=== PATIENT | male | born 1940 | race Caucasian/White ===

== ENCOUNTER 2016-11-14 12:53 | Outpatient (CLI) | payer MEDICARE ==
--- OUTSIDE RECORDS SUMMARY | 2016-11-14 12:56 | XMS | Clinical Summary ---
:1940 Author Organization [facility] Address [address] [place] [address] Phone Care Team Providers Name Role Phone , Primary Care Provider Unavailable Allergies Not on File Current Medications Not on file Active Problems Not on file Social History Tobacco Use Types Packs/Day Years Used Date Never Assessed Sex Assigned at Date Recorded Not on file Last Filed Vital Signs Not on file Plan of Treatment Not on file Results Not on filefrom Last 3 Months
--- NOTE | 2016-11-14 17:57 | PET ---
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 Exam requested for initial staging. TECHNIQUE: PET scanning with CT attenuation correction was performed from the base of the brain through the pro ximal thighs following the intravenous administration of 12.8 mCi [id number] in the right antecubital f lorraine. Imaging was performed after an uptake interval of 59 minutes. COMPARISON: None. CORRELATION: CT chest without contrast dated 09/18/16 from [facility]. FINDINGS: There is hypermetabolic activity in the noncalcified 2.0 cm right lower lobe peripheral lung nodule noted on the CT scan with a SUV of 13.4. No other hypermetabolic pulmonary nodules are seen. No manish hypermetabolism is seen in the neck, mediastinum, hilar regions, axilla, abdomen, or pelvis . No hypermetabolic liver, adrenal, or skeletal lesions are seen. Focal areas of photopenia in the liver are consistent with cysts on the CT scan. There is physiologic activity in the GI and tracts, and the visualized portions of the brain. The CT scan used for attenuation correction demonstrates no evidence of pleural effusions or ascites . IMPRESSION: Right lower lobe lung malignancy without evidence of metastatic disease. POS: [facility]
== END 2016-11-14 12:54 | disposition home or self-care (01) ==
LOC: PET 12:53
PROVIDERS: ATTEND Internal Medicine
DX: C34.90 Malignant neoplasm of unspecified part of unspecified bronchus or lung (principal)
CPT/HCPCS: 78815; A9552

== ENCOUNTER 2016-12-04 08:36 | Inpatient (IN) | payer MEDICARE ==
[2016-12-04 09:23] LABS: #Basophils 0.1 thou/uL (0.0-0.2); #Eosinphils 0.1 thou/uL (0.0-0.7); #Lymphocytes 1.3 thou/uL (1.20-3.40); #Monocytes 0.6 thou/uL (0.11-0.59); #Neutrophils 7.3 thou/uL (1.40-6.50); %Basophils 0.6 % (0.0-1.0); %Eosinophils 0.9 % (0.0-10.0); %Monocytes 6.9 % (0.0-10.0); Hematocrit 47.7 % (42.0-52.0); Mean Platelet Volume 7.9 fL (7.4-10.4); Red Blood Cell (RBC) Count 4.76 mill/uL (4.70-6.10); White Blood Cell (WBC) Count 9.4 thou/uL (4.8-10.8)
[2016-12-04 09:34] LABS: PTT 31.7 SEC (22.9-36.1); Prothrombin Time 14.7 SEC (12.0-14.7)
[2016-12-04 09:43] LABS: Anion Gap 9 mmol/L (10-20); BUN (Urea Nitrogen) 20 mg/dL (8.4-25.7); Calc. Creatinine Clearance 60 mL/min (70-130); Calcium 9.4 mg/dL (7.8-10.44); Carbon Dioxide 29 mmol/L (23-31); Chloride 107 mmol/L (98-107); Estimated GFR-MDRD 62
[2016-12-04] MEDS ORDERED: Midazolam HCl 2 mg/2 ml Vial ONE ×2 (10:10→10:12)
[2016-12-04] MEDS ORDERED: Fentanyl 100 MCG/2 ML VIAL ONE ×3 (10:11→16:33)
[2016-12-04] MEDS ORDERED: Fentanyl 250 MCG/5 ML VIAL ONE ×2 (11:04)
[2016-12-04] MEDS ORDERED: CEFAZOLIN/Water 2 GM/20 ML SYRINGE ONE (11:09)
[2016-12-04] MEDS ORDERED: Bupivacaine 0.25% HCL 30 ML VIAL ONE (11:15)
[2016-12-04] MEDS ORDERED: PHENYLEPHRINE-NS 100 MCG/ML 10 ML SYRINGE ONE (12:00)
[2016-12-04] MEDS ORDERED: ePHEDrine/0.9% NaCl/PF SYRINGE 50 mg/10 ml ONE (12:00)
[2016-12-04] MEDS ORDERED: Ondansetron HCl/PF 4 MG/2 ML Vial ONE (12:00)
[2016-12-04] MEDS ORDERED: Propofol 200 MG/20 ML VIAL ONE (12:00)
[2016-12-04] MEDS ORDERED: Vecuronium 10 MG VIAL ONE (12:00)
[2016-12-04] MEDS ORDERED: Glycopyrrolate 0.2 MG/ML 5 ML SYRINGE ONE (12:00)
--- NOTE | 2016-12-04 15:09 | EKG ---
Test Reason : PREOP Blood Pressure : / mmHG Vent. Rate : 062 BPM Atrial Rate : 062 BPM P-R Int : 082 ms QRS Dur : 164 ms QT Int : 472 ms P-R-T Axes : 100 054 061 degrees QTc Int : 479 ms AV sequential or dual chamber electronic pacemaker When compared with ECG of 02-DEC-2015 06:24, Vent. rate has decreased BY 3 BPM Confirmed by BRENNON CASTELLANO ([id number]) on 12/04/2016 3:09:06 PM Referred By: NORRIS Confirmed By:BRENNON CASTELLANO
[2016-12-04] MEDS ORDERED: Fentanyl/Bupivacaine 250 ML EPIDURAL ONE (15:21)
[2016-12-04] MEDS ORDERED: Promethazine HCl 25 MG/ML VIAL IM PRN ×2 (15:29→17:21)
[2016-12-04] MEDS ORDERED: Promethazine HCl 25 MG/ML VIAL SLOW IVP PRN (15:29)
[2016-12-04] MEDS ORDERED: Ondansetron HCl/PF 4 MG/2 ML Vial IVP PRN ×2 (15:29→17:21)
[2016-12-04] MEDS ORDERED: FLU VACC TS2017-18 (>65YR) 0.5 ML SYRINGE IM ONE (16:00)
[2016-12-04] MEDS ORDERED: Ketorolac Tromethamine 30 MG/ML VIAL ONE (16:58)
[2016-12-04] MEDS ORDERED: niCARdipine HCl 25 MG in Sodium Chloride 0.9% 250 ML 240 ML IVPB PRN (17:21)
[2016-12-04] MEDS ORDERED: hydrALAZINE 20 MG/ML VIAL SLOW IVP PRN (17:21)
[2016-12-04] MEDS ORDERED: Acetaminophen 325 MG TAB PO PRN (17:21)
[2016-12-04] MEDS ORDERED: Sodium Chloride 0.9% 1,000 ML IV SCH (17:21)
[2016-12-04] MEDS ORDERED: Phenylephrine 10 MG/NS 250 ML 250 ML IVPB PRN (17:21)
[2016-12-04] MEDS ORDERED: Norepinephrine 8 MG/0.9% NS 250 ML IVPB PRN (17:21)
[2016-12-04] MEDS ORDERED: Nitroglycerin 50 MG/250 ML BOT 250 ML IVPB PRN (17:21)
--- NOTE | 2016-12-04 17:34 | RAD ---
PORTABLE CHEST: 12/04/16 HISTORY: Post thoracotomy. There are two right sided chest tubes. No significant pneumothorax. Some hazy alveolar opacity in th e right mid lung could represent infiltrate or atelectasis. Left lung appears clear. There is mild c ardiomegaly with postop sternotomy change and AICD leads again noted. IMPRESSION: Postop right thoracotomy. Hazy opacity in the right mid lung could represent atelectasis or infiltra te. POS: [facility]
[2016-12-04] MEDS: CEFAZOLIN/Water 2 GM/20 ML SYRINGE SLOW IVP SCH (18:16)
[2016-12-04] MEDS ORDERED: Naloxone HCl 0.4 mg/ml Vial IV PRN (19:00)
[2016-12-04] MEDS ORDERED: Naloxone HCl 0.4 mg/ml Vial IVP PRN (19:00)
[2016-12-04] MEDS ORDERED: diphenhydrAMINE 25 MG CAP PO PRN (19:00)
[2016-12-04] MEDS ORDERED: diphenhydrAMINE 50 MG/ML VIAL IM PRN (19:00)
[2016-12-04] MEDS ORDERED: HYDROcodone/Acetaminophen 5/325 mg Tablet PO PRN ×2 (19:00)
[2016-12-04] MEDS ORDERED: Fentanyl/Bupivacaine 250 ML in Premix Bag 1 BAG EPIDURAL SCH (19:00)
[2016-12-04] MEDS ORDERED: Zolpidem Tartrate 5 MG TAB PO PRN (19:00)
[2016-12-04] MEDS ORDERED: diphenhydrAMINE 50 MG/ML VIAL IVP PRN (19:00)
[2016-12-04] MEDS ORDERED: Bupivacaine 0.25% 10 ML VIAL EPIDURAL PRN (19:00)
[2016-12-04] MEDS ORDERED: Promethazine HCl 25 MG SUPP PR PRN (19:00)
[2016-12-04] MEDS ORDERED: Hydrocerin (Eucerin) Cream 120 gm Jar TOP PRN (19:02)
[2016-12-04] MEDS: Albuterol Sulfate 2.5 mg/3 ml Neb NEB SCH ×2 (19:19→20:27)
[2016-12-04] MEDS: Ipratropium Bromide 2.5 ml Neb NEB SCH ×2 (19:20→20:26)
[2016-12-04] MEDS: traMADol HCl 50 MG TAB PO PRN (19:47)
[2016-12-04] MEDS: Atorvastatin Calcium 40 MG TAB PO SCH (20:04)
[2016-12-04] MEDS: Carvedilol 25 MG TAB PO SCH (20:04)
--- NOTE | 2016-12-04 21:19 | CON ---
DATE OF SERVICE: 12/04/2016 SUBJECTIVE: A 76-year-old gentleman who underwent a right lower lobe lobectomy by Dr. Basilio. The patient is scheduled to go to the ICU. Please review the notes from Dr. Basilio's office. PAST MEDICAL HISTORY: Coronary artery disease, atrial fibrillation, CHF, hypertension, chronic gerald l failure, COPD, pulmonary nodule, renal mass. PREVIOUS SURGERIES: 1. Radial artery line. 2. Bypass. 3. Mitral valve. 4. Appendix. 5. Hernia. MEDICATIONS: Coumadin 4, potassium, vitamin, Ismo 60, Lasix 40, Cartia 180, Plavix, Coreg. PHYSICAL EXAMINATION: GENERAL: unremarkable. Postoperative, he is in pain but denies any difficulty breathing. VITAL SIGNS: Sats are 96-97%, pulse 80, blood pressure 130/80. CHEST: Decreased breath sounds without any wheezing. CARDIAC: Normal S1, S2. No gallops. ABDOMEN: No masses. LABORATORY AND X-RAY FINDINGS: Chest x-ray shows no acute infiltrates. White count 9000, H\T\H 15 and 47, platelet count is normal. Electrolytes are normal. IMPRESSION: 1. Status post right lower lobe lobectomy. 2. Hypertension. 3. Coronary artery disease. PLAN: Watch him while in the ICU. I will start him on scheduled nebulizer treatments. Notify Dr. Leal in the morning.
--- NOTE | 2016-12-04 21:55 | OP ---
SURGEON: Caleb Basilio M.D. SUB ARC OPERATOR: None. PREOPERATIVE DIAGNOSIS: Squamous cell carcinoma right lower lobe. POSTOPERATIVE DIAGNOSIS: Squamous cell carcinoma right lower lobe. SPONGE AND NEEDLE COUNTS: Correct. ANESTHESIA: General. OPERATION PERFORMED: Right lower lobectomy with mediastinal lymph node staging. FINDINGS AT OPERATION: Approximately 2 cm mass right lower lobe with visceral pleural extension. PROCEDURE IN DETAIL: The patient was taken to the operating room. Following the induction of general endotracheal anesthesia utilizing a double lumen tube, he was positioned with his left side down and taped and padded appropriately. The patient was then prepped and draped in the usual sterile fashion. An abbreviated, muscle-sparing right thoracotomy incision was made through the auscultatory triangle. Right pleural cavity was entered via the fifth interspace. Inspection revealed poorly defined fissures as well as medial adhesions likely related to his prior right internal mammary artery harvest for use as a bypass graft. The mass within the right lower lobe was readily appreciated with grossly obvious visceral pleural extension. There were no appreciable masses within the right upper and middle lobes. The major and minor fissures were developed and ultimately divided with applications of the green load stapler. The pulmonary artery to the lower lobe was isolated and divided between 2-0 silk free ties with a 3-0 silk transfixion suture on the remaining end. The branch to the right middle lobe was identified and preserved. Pulmonary ligament was taken down. Inferior pulmonary vein was isolated and divided with the red load vascular stapler. The right lower lobe bronchus was developed. It was secured with the green load stapler. Prior to firing the stapler, appropriate inflation of the upper and middle lobes was observed. Stapler was fired and specimen passed from the field. Mediastinal lymph node staging was now performed. Levels 8 and 9 lymph nodes were excised and sent for permanent pathology. Bronchial stump was tested underwater to 45 cm of water pressure and found to be intact. Copious irrigation with sterile water was now performed. Meticulous hemostasis was assured. 36 Malawian straight and 32 Malawian right angle chest tubes were placed. Figure of eight #1 Vicryl paracostal sutures were placed. Right lung was inflated. Upper and middle lobes were tacked together to prevent right middle lobe torsion using a horizontal mattress 0 Vicryl suture. Chest wal paracostal sutures were now secured. Soft tissues were reapproximated anatomically with a combination of running 0 Vicryl and 2-0 Vicryl sutures. Skin was closed with a 3-0 Vicryl subcuticular stitch. Dermabond was applied. The patient was returned to the supine position, awakened, extubated, and taken to the recovery room. Estimated blood loss 250 mL. MTDD
[2016-12-04] MEDS: Ketorolac Tromethamine 30 MG/ML VIAL IVP SCH (22:59)
[2016-12-05] MEDS ORDERED: Digoxin 0.5 MG/2 ML AMP SLOW IVP SCH (01:30)
[2016-12-05] MEDS ORDERED: Diltiazem HCl 125 MG, Admixture Fee 1 EACH in Sodium Chloride 0.9% 100 ML SLOW IVP SCH (01:45)
[2016-12-05] MEDS: CEFAZOLIN/Water 2 GM/20 ML SYRINGE SLOW IVP SCH ×2 (02:39→11:41)
[2016-12-05 05:01] LABS: Anion Gap 8 mmol/L (10-20); BUN (Urea Nitrogen) 22 mg/dL (8.4-25.7); Calc. Creatinine Clearance 63 mL/min (70-130); Calcium 8.3 mg/dL (7.8-10.44); Carbon Dioxide 25 mmol/L (23-31); Chloride 110 mmol/L (98-107); Estimated GFR-MDRD 65
[2016-12-05 05:19] LABS: Band 16 % (5-11); Hematocrit 43.8 % (42.0-52.0); Mean Platelet Volume 8.3 fL (7.4-10.4); Neutrophil 74 % (42-75); Red Blood Cell (RBC) Count 4.34 mill/uL (4.70-6.10); White Blood Cell (WBC) Count 15.6 thou/uL (4.8-10.8)
[2016-12-05] MEDS: Ketorolac Tromethamine 30 MG/ML VIAL IVP SCH ×4 (05:32→23:47)
[2016-12-05] MEDS: Ondansetron HCl/PF 4 MG/2 ML Vial IVP PRN ×2 (05:43→13:19)
[2016-12-05] MEDS: Ipratropium Bromide 2.5 ml Neb NEB SCH ×2 (06:57→10:57)
[2016-12-05] MEDS: Albuterol Sulfate 2.5 mg/3 ml Neb NEB SCH (06:58)
[2016-12-05] MEDS: Potassium Chloride 20 MEQ TAB PO SCH (08:33)
[2016-12-05] MEDS: Lisinopril 10 MG TAB PO SCH (08:33)
[2016-12-05] MEDS: Carvedilol 25 MG TAB PO SCH ×2 (08:33→20:32)
[2016-12-05] MEDS: Furosemide 40 MG TAB PO SCH (08:35)
[2016-12-05] MEDS: Multivit, Therapeutic 1 TAB PO SCH (08:35)
--- NOTE | 2016-12-05 08:35 | RAD ---
PORTABLE CHEST: History: Follow up thoracotomy. Shortness of breath. Comparison: 12-04-16 FINDINGS: The two right sided chest tubes are unchanged. No evidence of significant pneumothorax seen. There i s patchy atelectasis and/or infiltrate in the left lung base obscuring the left CP angle. Chest is o therwise unchanged. POS: [facility]
[2016-12-05] MEDS ORDERED: Clopidogrel Bisulfate 75 MG TAB PO SCH (09:00)
[2016-12-05] MEDS ORDERED: Fentanyl 100 MCG/2 ML VIAL SLOW IVP PRN (11:07)
[2016-12-05] MEDS: Bupivacaine 10 ML in Sodium Chloride 0.9% 90 ML EPIDURAL SCH (11:37)
[2016-12-05] MEDS: HYDROcodone/Acetaminophen 10/325 mg Tablet PO PRN (12:45)
--- NOTE | 2016-12-05 14:58 | EKG ---
Test Reason : STAT Blood Pressure : / mmHG Vent. Rate : 135 BPM Atrial Rate : 135 BPM P-R Int : 000 ms QRS Dur : 144 ms QT Int : 346 ms P-R-T Axes : 088 -79 116 degrees QTc Int : 519 ms Sinus tachycardia Right bundle branch block Left anterior fascicular block Bifascicular block Voltage criteria for left ventricular hypertrophy Abnormal ECG Confirmed by BRENNON CASTELLANO ([id number]) on 12/05/2016 2:57:56 PM Referred By: Veena FLORES Confirmed By:BRENNON CASTELLANO
[2016-12-05] MEDS: Promethazine HCl 25 MG/ML VIAL IM PRN (18:29)
[2016-12-05] MEDS: Atorvastatin Calcium 40 MG TAB PO SCH (20:32)
[2016-12-06] MEDS: Bupivacaine 10 ML in Sodium Chloride 0.9% 90 ML EPIDURAL SCH ×2 (00:29→13:49)
[2016-12-06] MEDS: traMADol HCl 50 MG TAB PO PRN ×3 (04:47→16:24)
[2016-12-06] MEDS: Ketorolac Tromethamine 30 MG/ML VIAL IVP SCH ×2 (05:51→12:04)
[2016-12-06] MEDS: Carvedilol 25 MG TAB PO SCH ×2 (08:15→20:55)
[2016-12-06] MEDS: Lisinopril 10 MG TAB PO SCH (08:17)
[2016-12-06] MEDS: Multivit, Therapeutic 1 TAB PO SCH (08:18)
[2016-12-06] MEDS: Potassium Chloride 20 MEQ TAB PO SCH (08:18)
[2016-12-06] MEDS: Furosemide 40 MG TAB PO SCH (08:19)
--- NOTE | 2016-12-06 09:00 | RAD ---
PORTABLE AP CHEST: Date: 12-06-16 History: Post thoracotomy. Comparison: 12-05-16 FINDINGS: Two right sided thoracostomy tubes remain in place. There is no appreciable pneumothorax or pleural effusions seen. Post-surgical changes related to median sternotomy and cardiac valve replacement are again noted. Tr ipe lead left AICD device remains in place. Again noted is the parenchymal opacity and suggestion of consolidation in the lateral left lung base which may be related to either pneumonia, aspiration pn eumonitis, or atelectasis. Cardiac silhouette does appear mildly enlarged but is magnified by projec tion. Pulmonary vasculature is borderline increased. There has been no significant interval change f rom prior exam. IMPRESSION: Stable chest with stable parenchymal opacity at the left lung base as described above. POS: [facility]
--- NOTE | 2016-12-06 09:29 | PRG ---
DATE OF SERVICE: 12/05/2016 SERVICE: Pulmonary Medicine INTERVAL HISTORY: The patient is doing okay from a respiratory standpoint. He tolerated the lobect maggi fairly well. He has considerable amounts of discomfort right now, but otherwise he is returning to his usual state of health. There were no overnight events. PHYSICAL EXAMINATION: VITAL SIGNS: Afebrile, pulse 79, blood pressure 128/63, respirations 20, saturation 96% on room air . GENERAL: The patient is awake and alert, no apparent distress. LUNGS: Decent air entry. Rhonchi are present. There is minimal prolonged expiratory phase, but no wheezing or crackles are appreciated. HEART: Normal rate, regular. ABDOMEN: Soft, nontender, nondistended. Bowel sounds are hypoactive. GENITOURINARY: Almazan catheter in place. NEUROLOGIC: Grossly nonfocal. LABORATORY DATA: WBC 15.6, hemoglobin 14.2, platelets 174,000. INR 1.1. Basic metabolic profile i s unremarkable with stable creatinine. IMAGING: Chest x-ray demonstrates no acute cardiopulmonary abnormality. He is in a post-thoracotom y state with chest tubes in place on the right. Left lung base has some degree of atelectasis. ASSESSMENT: 1. Squamous cell carcinoma of the right lower lobe. 2. Postoperative day #1 from a thoracotomy with excision of right lower lobe and mediastinal lymph node dissection. PLAN: We will continue our routine postop care. At this point, pain control is one of our major co ncerns. We will try to mobilize the patient as much as he can tolerate. I will continue to follow while the patient remains in house.
--- NOTE | 2016-12-06 15:31 | HP ---
DATE OF SERVICE: 12/06/2016 SERVICE: Pulmonary Medicine. INTERVAL HISTORY: The patient is doing outstanding from a respiratory standpoint. He continues to have chest discomfort in the right lower quadrant, and referred pain into his shoulder. His pain is under much better control today and he is in better spirits. He denies any current fevers, chills, nausea or vomiting. PHYSICAL EXAMINATION: VITAL SIGNS: Afebrile, pulse 60, blood pressure 117/56, respirations 12, and saturation 91% on room air. GENERAL: The patient is awake and alert, in no apparent distress. LUNGS: Excellent air entry. Slightly prolonged expiratory phase. I do not appreciate any significant wheezing. Dependent crackles are minimal. No rhonchi. HEART: Normal rate and regular. ABDOMEN: Soft, nontender, nondistended, bowel sounds positive. MUSCULOSKELETAL: No cyanosis or clubbing. No pitting in the bilateral lower extremities. NEUROLOGIC: Grossly nonfocal. IMAGING: Chest x-ray demonstrates right-sided thoracostomy drains in good position. Stable parenchymal opacities at the left lung base. This likely represents atelectasis. There is an AICD in good position. ASSESSMENT: 1. Squamous cell carcinoma of the right lower lobe. 2. Chronic obstructive pulmonary disease. 3. Atelectasis of the left lower lobe, suspected. 4. Thoracotomy, postop day #2 with lymph node dissection. PLAN: Routine postoperative care will be continued. He will continue using the incentive spirometer. If he develops fever, repeat chest x-ray will be performed and we will consider empirically treating him for a community- acquired pneumonia. That being said, I am doubtful that this is the issue in the left lower lobe, it is more likely to have some degree of atelectasis in it. We will follow up on pathology once it becomes available. AURELIO
--- NOTE | 2016-12-06 19:22 | CON ---
DATE OF CONSULTATION: 12/06/2016 REASON FOR CONSULTATION: Atrial fibrillation. REFERRING PROVIDER: Caleb Basilio M.D. HISTORY OF PRESENT ILLNESS: Mr. Lorenzana is a very pleasant 76-year-old gentleman who I have seen and evaluated in the past. He has a history of CAD, PVD, tobacco abuse, who recently was scheduled for lobectomy. He developed atrial fibrillation with RVR on the evening of 12/04/2016. It was reverted back to sinus rhythm. He denies chest pain or pressure noted. PAST MEDICAL HISTORY: As above including hypertension, mitral valve repair, hyperlipidemia, atrial fibrillation, hernia repair. ALLERGIES: None. HOME MEDICATIONS: Include Coreg, Lipitor, diltiazem, Lasix, potassium, Plavix, lisinopril, Coumadin , and Imdur. REVIEW OF SYSTEMS: Ten-point review of systems is reviewed and as above, otherwise negative. PHYSICAL EXAMINATION: GENERAL: Patient is a pleasant male who is in no acute distress. The patient appears older than hi s stated age. VITAL SIGNS: Blood pressure 120/70, pulse 68, temperature 97.8. NEUROLOGIC: The patient is alert and oriented times 3 with no focal neurologic deficits. HEENT: Sclerae without icterus. Mouth has moist mucous membranes with normal pallor. NECK: No JVD. Carotid upstroke brisk. No bruits bilaterally. LUNGS: Clear to auscultation with unlabored respirations. BACK: No scoliosis or kyphosis. CARDIAC: Regular rate and rhythm with normal S1 and S2. No S3 or S4 noted. No significant rubs, m urmurs, thrills, or gallops noted throughout the precordium. PMI is not displaced. There is no par asternal heave. Chest tube noted to the left side. ABDOMEN: Soft, nontender, nondistended. No peritoneal signs present. No hepatosplenomegaly. No a bnormal striae. EXTREMITIES: 2+ femoral and 2+ dorsalis pedis pulses. No cyanosis, clubbing, or edema. SKIN: No gross abnormalities PERTINENT LABORATORY DATA: Hemoglobin 14.2. Creatinine 1.1. IMPRESSION: 1. Atrial fibrillation with rapid ventricular response, now in sinus rhythm. 2. Recent lobectomy. 3. Coronary artery disease, status post stent placement. 4. Status post bypass surgery. RECOMMENDATIONS: At this point, Mr. Lorenzana appears to be doing well. We would continue Coreg as pre scribed. He is also on diltiazem. We will continue to follow with you.
[2016-12-06] MEDS: HYDROcodone/Acetaminophen 10/325 mg Tablet PO PRN (20:54)
[2016-12-06] MEDS: Atorvastatin Calcium 40 MG TAB PO SCH (20:55)
[2016-12-06] MEDS: Senokot S 8.6-50 MG TAB PO SCH (20:55)
[2016-12-07] MEDS: Bupivacaine 10 ML in Sodium Chloride 0.9% 90 ML EPIDURAL SCH ×2 (04:10→16:41)
[2016-12-07] MEDS: HYDROcodone/Acetaminophen 10/325 mg Tablet PO PRN ×3 (05:10→22:50)
[2016-12-07] MEDS ORDERED: Enoxaparin Sodium 40 MG/0.4 ML SYRINGE SC SCH ×2 (09:00→16:00)
[2016-12-07] MEDS ORDERED: Clopidogrel Bisulfate 75 MG TAB PO SCH (09:00)
--- NOTE | 2016-12-07 09:15 | RAD ---
PORTABLE CHEST 12/07/16 PROVIDED CLINICAL HISTORY: Status post thoracotomy. FINDINGS: Comparison is made with the study dated 12/06/16. Significant interval change from the prior examination is not apparent. IMPRESSION: As above. POS: [facility]
[2016-12-07] MEDS: Potassium Chloride 20 MEQ TAB PO SCH (11:01)
[2016-12-07] MEDS: Furosemide 40 MG TAB PO SCH (11:02)
[2016-12-07] MEDS: Lisinopril 10 MG TAB PO SCH (11:02)
[2016-12-07] MEDS: Senokot S 8.6-50 MG TAB PO SCH ×2 (11:03→22:47)
[2016-12-07] MEDS: Carvedilol 25 MG TAB PO SCH ×2 (11:03→22:46)
[2016-12-07] MEDS: Multivit, Therapeutic 1 TAB PO SCH (11:05)
[2016-12-07] MEDS: traMADol HCl 50 MG TAB PO PRN ×2 (11:06→16:52)
--- NOTE | 2016-12-07 14:28 | PRG ---
DATE OF SERVICE: 12/07/2016 SERVICE: Pulmonary Medicine. INTERVAL HISTORY: The patient is doing great from a cardiovascular and respiratory standpoint. He continues to have right-sided chest discomfort associated with chest tubes. He denies any nausea and vomiting, although does not have an appetite. There has been no significant change to his bowel habits. Otherwise, there are no events overnight and no fevers. PHYSICAL EXAMINATION: VITAL SIGNS: Afebrile with a T-max of 99.9. Pulse 79, blood pressure 119/56, respirations 16, saturation 97% on 2 liters nasal cannula. GENERAL: The patient is awake and alert, no apparent distress. LUNGS: Decent air entry. Some minimal crackles on the right. Slightly prolonged expiratory phase, but no overt rhonchi or wheezes are appreciated. HEART: Normal rate, regular. ABDOMEN: Soft, nontender, nondistended. Bowel sounds positive. MUSCULOSKELETAL: No cyanosis or clubbing. No pitting in the bilateral lower extremities. NEUROLOGIC: Grossly nonfocal. IMAGING: Chest x-ray demonstrates no significant interval change. There is stable thoracostomy drains x2 on the right. There is a left-sided pleural or parenchymal opacification present which seems to be improving slightly. ASSESSMENT: 1. Acute hypoxic respiratory failure. 2. Squamous cell carcinoma of the right lower lobe, status post lobectomy. 3. Chronic obstructive pulmonary disease. 4. Atelectasis of the left lower lobe, suspected. 5. Thoracotomy, postop day 2 with lymph node dissection PLAN: Supportive measures will be continued. Repeat laboratories will be performed tomorrow morning. If he has a true fever, empiric antibiotics may be consider directed at lung issues Pulmonary will continue to follow, the patient remains in house. Hopefully, the thoracostomy drains will stop putting out as much fluid and can safely be removed in the next 24-48 hours. AURELIO
[2016-12-07] MEDS ORDERED: Sodium Chloride 0.9% 500 ML IV SCH (16:00)
[2016-12-07 16:22] LABS: Sodium 138 mmol/L (135-148)
[2016-12-07 16:23] LABS: Mode 2L/M NASAL CANNULA; Modified Allen's Test POSITIVE
[2016-12-07] MEDS: Piperacillin/Tazobactam 3.375 GM, Admixture Fee 1 EACH in Sodium Chloride 0.9% 100 ML IVPB SCH ×2 (17:43→23:03)
[2016-12-07] MEDS: Atorvastatin Calcium 40 MG TAB PO SCH (22:46)
[2016-12-08 05:19] LABS: Anion Gap 9 mmol/L (10-20); BUN (Urea Nitrogen) 25 mg/dL (8.4-25.7); Calc. Creatinine Clearance 55 mL/min (70-130); Calcium 8.6 mg/dL (7.8-10.44); Carbon Dioxide 27 mmol/L (23-31); Chloride 108 mmol/L (98-107); Estimated GFR-MDRD 54; Magnesium 2.2 mg/dL (1.6-2.6); Phosphorus 2.7 mg/dL (2.3-4.7)
[2016-12-08] MEDS: Bupivacaine 10 ML in Sodium Chloride 0.9% 90 ML EPIDURAL SCH (05:38)
[2016-12-08] MEDS: Piperacillin/Tazobactam 3.375 GM, Admixture Fee 1 EACH in Sodium Chloride 0.9% 100 ML IVPB SCH ×3 (05:52→18:10)
[2016-12-08 05:55] LABS: Band 4 % (5-11); Hematocrit 37.9 % (42.0-52.0); Macrocytosis SLIGHT = 6-15 cells (100X) (0-5/hpf); Mean Platelet Volume 8.3 fL (7.4-10.4); Neutrophil 89 % (42-75); Ovalocytes SLIGHT = 2-5 cells (100X) (0-1/hpf); Red Blood Cell (RBC) Count 3.72 mill/uL (4.70-6.10); White Blood Cell (WBC) Count 19.2 thou/uL (4.8-10.8)
[2016-12-08] MEDS: Multivit, Therapeutic 1 TAB PO SCH (08:24)
[2016-12-08] MEDS: Lisinopril 10 MG TAB PO SCH (08:25)
[2016-12-08] MEDS: Carvedilol 25 MG TAB PO SCH ×2 (08:26→20:56)
[2016-12-08] MEDS: Potassium Chloride 20 MEQ TAB PO SCH (08:26)
[2016-12-08] MEDS: HYDROcodone/Acetaminophen 10/325 mg Tablet PO PRN ×2 (08:28→20:57)
[2016-12-08] MEDS: Senokot S 8.6-50 MG TAB PO SCH ×2 (10:10→20:56)
--- NOTE | 2016-12-08 11:13 | RAD ---
PORTABLE AP CHEST XRAY: DATE: 12/08/16. HISTORY: Post thoracotomy. COMPARISON: 12/07/16. FINDINGS: Two right-sided thoracostomy tubes remain in place and unchanged in position. No right-sided pneumo thorax is appreciated. Postsurgical changes related to median sternotomy and cardiac valve replacem ent are again present. Left subclavian AICD device is unchanged in position. There are scattered i ncreased interstitial densities bilaterally unchanged from the prior study. There has been no inter star change when compared to the prior exam. IMPRESSION: Stable chest. POS: [facility]
--- NOTE | 2016-12-08 12:44 | PRG ---
DATE OF SERVICE: 12/08/2016 Mr. Lorenzana states he had an episode of shortness of breath last evening. He states he was given Lasi x with improvement. He is currently doing well with no episodes of shortness of breath. He does kumar ve a history of ischemic cardiomyopathy. He also complained of chest pain with deep inspiration. H john continues to have a chest tube in place. PHYSICAL EXAMINATION: PERTINENT VITAL SIGNS: Blood pressure 96/57, pulse 67, temperature 97.2, weight is up 4 pounds. LUNGS: Mild crackles bilaterally. CARDIAC: Regular rate and rhythm, no new murmurs, rubs, thrills or gallops. ABDOMEN: Soft, nontender, nondistended. EXTREMITIES: No edema. PERTINENT LABS: Hemoglobin 12.1. IMPRESSION: 1. Acute on chronic systolic heart failure. 2. Status post chest tube placement. 3. Squamous cell cancer. 4. Ischemic cardiomyopathy. RECOMMENDATIONS: Mr. Lorenzana currently feels well. No recurrent episodes of shortness of breath. I would continue current medical therapy. He is currently on Plavix, carvedilol, Cardizem in addition to Lasix.
--- NOTE | 2016-12-08 15:30 | PRG ---
DATE OF SERVICE: 12/08/2016 SERVICE: Pulmonary Medicine. INTERVAL HISTORY: The patient is doing fine from a cardiovascular and respiratory standpoint. He d enies any current chest pain or current shortness of breath. He feels much improved compared to yes terday afternoon. Otherwise, there was no interval change to his condition. He continues to have s ome chest discomfort. He has an air leak on his chest tube today. PHYSICAL EXAMINATION: VITAL SIGNS: Afebrile. He has a T-max of 99.9. Pulse 67, blood pressure 69/57, respirations 14, s aturation 98% on 2 liters nasal cannula. GENERAL: Patient is awake, alert, no apparent distress. LUNGS: Decent air entry. There is no prolonged expiratory phase. No crackles are appreciated, but there are rhonchi. Minimal wheezing. HEART: Normal rate, regular. ABDOMEN: Soft, nontender, and nondistended. Bowel sounds positive. MUSCULOSKELETAL: No cyanosis or clubbing. No pitting in the bilateral lower extremities. NEUROLOGIC: Grossly nonfocal. LABORATORY DATA: WBC 19.2 and gently up trending. Hemoglobin 12.1, platelets 153,000. Band count is dropping to 4 and neutrophil count is actually increasing to 93%. Basic metabolic profile was es sentially unremarkable except for creatinine that is up trending to 1.3. Magnesium and phosphorus a re stable. IMAGING: Chest x-ray demonstrates stable chest with infiltrate and/or atelectasis in the left lower lobe. Of note, this infiltrate was present one day after admission. Thoracostomy tubes are in goo d position and unchanged. ASSESSMENT: 1. Acute hypoxic respiratory failure, stable. 2. Squamous cell carcinoma of the right lower lobe. 3. Community-acquired pneumonia, suspected. 4. Thoracotomy with right lower lobectomy and lymph node excision, postoperative day #3. PLAN: We will continue supportive measures with his routine postoperative care. I will continue to trend laboratories to make certain that his white blood cell count trends in the correct direction. Empiric antibiotics directed at community-acquired organisms will be continued as he is clinically improving. Once the air leak stops and the fluid from the right lung decreases, the chest tubes wi ll be removed, but for the time being, they are required. Dr. Mark will cover this weekend. Mari linda will continue to follow.
[2016-12-08] MEDS ORDERED: Enoxaparin Sodium 40 MG/0.4 ML SYRINGE SC SCH (16:00)
[2016-12-08] MEDS ORDERED: Fentanyl 100 MCG/2 ML VIAL SLOW IVP PRN ×2 (16:52)
[2016-12-08] MEDS: Atorvastatin Calcium 40 MG TAB PO SCH (20:56)
[2016-12-09] MEDS: Piperacillin/Tazobactam 3.375 GM, Admixture Fee 1 EACH in Sodium Chloride 0.9% 100 ML IVPB SCH ×4 (00:24→17:14)
[2016-12-09] MEDS: traMADol HCl 50 MG TAB PO PRN ×2 (00:24→20:37)
[2016-12-09] MEDS: HYDROcodone/Acetaminophen 10/325 mg Tablet PO PRN ×2 (03:04→09:42)
[2016-12-09 06:05] LABS: Anion Gap 8 mmol/L (10-20); BUN (Urea Nitrogen) 29 mg/dL (8.4-25.7); Calc. Creatinine Clearance 48 mL/min (70-130); Carbon Dioxide 28 mmol/L (23-31); Chloride 107 mmol/L (98-107); Estimated GFR-MDRD 46
[2016-12-09 06:09] LABS: Band 5 % (5-11); Hematocrit 39.6 % (42.0-52.0); Mean Platelet Volume 7.7 fL (7.4-10.4); Neutrophil 88 % (42-75); Red Blood Cell (RBC) Count 3.85 mill/uL (4.70-6.10); White Blood Cell (WBC) Count 19.3 thou/uL (4.8-10.8)
[2016-12-09] MEDS ORDERED: Furosemide 20 MG TAB PO SCH (09:00)
[2016-12-09] MEDS: Carvedilol 25 MG TAB PO SCH ×2 (09:35→20:34)
[2016-12-09] MEDS: Senokot S 8.6-50 MG TAB PO SCH ×2 (09:36→20:33)
[2016-12-09] MEDS: Potassium Chloride 20 MEQ TAB PO SCH (09:36)
[2016-12-09] MEDS: Multivit, Therapeutic 1 TAB PO SCH (09:36)
[2016-12-09] MEDS: Lisinopril 10 MG TAB PO SCH (09:37)
--- NOTE | 2016-12-09 09:56 | RAD ---
CHEST 1 VIEW: HISTORY: Thoracotomy. COMPARISON: Chest 1 view prior day. FINDINGS: Two right thoracostomy tubes are similar. Size decrease of the pneumothorax is noted. Smaller righ t effusion. Atelectatic changes of both lung bases are improving. IMPRESSION: Improving small right pneumothorax and atelectatic changes. POS: [facility]
[2016-12-09] MEDS ORDERED: guaiFENesin ER 600 MG TAB PO SCH ×2 (11:30→21:00)
--- NOTE | 2016-12-09 16:39 | PRG ---
DATE OF SERVICE: 12/09/2016 SUBJECTIVE: The patient is awake, alert, responsive with pain and shortness of breath. OBJECTIVE: VITAL SIGNS: Sats are 97% on 2 liters, temperature 97, respirations 20 and pulse 88. CHEST: Bilateral rhonchi. CARDIAC: Sinus tachycardia. ABDOMEN: Soft. No masses. LABORATORY DATA: White count 19,000, hemoglobin and hematocrit 12 and 39 and platelet count 188. C reatinine 1.5. IMAGING DATA: His x-ray today shows 2 chest tubes, chronic scarring in both lungs. IMPRESSION: Status post lobectomy, moderately differentiated invasive squamous cell carcinoma, tito nary artery disease. PLAN: Continue neb treatments. Supportive care. We will follow.
--- NOTE | 2016-12-09 18:39 | PDOC.CTH ---
Cardiology Progress Note - Subjective No new issues., Only complaint is soreness on side of lobectomy. - Objective Vital Signs Temp Pulse Pulse Pulse Pulse Pulse Pulse 12/09/16 17:21 80 12/09/16 15:36 97.4 F L 82 12/09/16 14:49 83 78 77 79 80 12/09/16 14:48 80 12/09/16 13:30 76 12/09/16 12:21 97.7 F 80 12/09/16 09:46 97.8 F 88 12/09/16 09:37 12/09/16 09:32 97.8 F 88 12/09/16 07:01 12/09/16 06:59 82 Resp BP BP BP BP BP BP 12/09/16 17:21 12/09/16 15:36 20 12/09/16 14:49 97/61 100/62 86/53 L 116/59 L 91/58 L 12/09/16 14:48 16 12/09/16 13:30 12/09/16 12:21 18 12/09/16 09:46 20 12/09/16 09:37 110/67 12/09/16 09:32 20 12/09/16 07:01 12/09/16 06:59 20 BP BP Pulse Ox Pulse Ox Pulse Ox Pulse Ox Pulse Ox 12/09/16 17:21 119/58 L 12/09/16 15:36 88/54 L 94 L 12/09/16 14:49 100 97 96 97 12/09/16 14:48 12/09/16 13:30 84/50 L 12/09/16 12:21 92/52 L 96 12/09/16 09:46 99 12/09/16 09:37 12/09/16 09:32 110/67 99 12/09/16 07:01 97 12/09/16 06:59 Pulse Ox 12/09/16 17:21 12/09/16 15:36 12/09/16 14:49 95 12/09/16 14:48 12/09/16 13:30 12/09/16 12:21 12/09/16 09:46 12/09/16 09:37 12/09/16 09:32 12/09/16 07:01 12/09/16 06:59 Weight 175 lb 12.8 oz 12/08/16 12/09/16 12/10/16 06:59 06:59 06:59 Intake Total 1338.2 1145 770 Output Total 950 895 655 Balance 388.2 250 115 - Physical Examination General/Neuro: alert & oriented x3, NAD Neck: no JVD present Lungs: unlabored respirations Heart: RRR Abdomen: NT/ND Extremities: other: (no edema) - Telemetry Telemetry Rhythm: V paced. - Labs Result Diagrams: 12/09/16 04:56 12/09/16 04:56 - Assessment/Plan 1. Acute on chronis systoic hear tfailure 2. s/p chets tube placements 3. Squamous cell carcinoma 4. Ischemic CM. 5. Underlying afib 6. AICD in place PLAN: - Continue same meds. - Pain control.
[2016-12-09] MEDS: guaiFENesin ER 600 MG TAB PO SCH (20:33)
[2016-12-09] MEDS: Atorvastatin Calcium 40 MG TAB PO SCH (20:33)
[2016-12-10] MEDS: Piperacillin/Tazobactam 3.375 GM, Admixture Fee 1 EACH in Sodium Chloride 0.9% 100 ML IVPB SCH ×5 (00:50→23:50)
[2016-12-10] MEDS: traMADol HCl 50 MG TAB PO PRN ×2 (04:09→04:27)
[2016-12-10] MEDS: Ondansetron HCl/PF 4 MG/2 ML Vial IVP PRN (04:37)
[2016-12-10 06:22] LABS: Anion Gap 10 mmol/L (10-20); BUN (Urea Nitrogen) 31 mg/dL (8.4-25.7); Calc. Creatinine Clearance 47 mL/min (70-130); Calcium 9.4 mg/dL (7.8-10.44); Carbon Dioxide 28 mmol/L (23-31); Chloride 108 mmol/L (98-107); Estimated GFR-MDRD 44
[2016-12-10 06:24] LABS: Band 4 % (5-11); Hematocrit 41.5 % (42.0-52.0); Macrocytosis MODERATE=16-30 cells (100X) (0-5/hpf); Mean Platelet Volume 7.5 fL (7.4-10.4); Neutrophil 88 % (42-75); Red Blood Cell (RBC) Count 4.06 mill/uL (4.70-6.10); White Blood Cell (WBC) Count 23.2 thou/uL (4.8-10.8)
[2016-12-10] MEDS: Potassium Chloride 20 MEQ TAB PO SCH (09:18)
[2016-12-10] MEDS: Carvedilol 25 MG TAB PO SCH ×2 (09:19→20:49)
[2016-12-10] MEDS: Lisinopril 10 MG TAB PO SCH (09:20)
[2016-12-10] MEDS: Senokot S 8.6-50 MG TAB PO SCH ×2 (09:20→20:49)
[2016-12-10] MEDS: Multivit, Therapeutic 1 TAB PO SCH (09:21)
[2016-12-10] MEDS: guaiFENesin ER 600 MG TAB PO SCH ×2 (09:28→20:49)
[2016-12-10] MEDS ORDERED: Bisacodyl 10 MG SUPP PR PRN (09:46)
--- NOTE | 2016-12-10 10:22 | RAD ---
CHEST 1 VIEW: HISTORY: Thoracotomy. COMPARISON: Chest 1 view prior day. FINDINGS: Subcutaneous emphysema is slightly increased. Two separate thoracostomy tubes are present. Trace r ight lateral pneumothorax. Linear opacities left lung base are improving. No left-side pneumothorax. Cardiac device is simila r. IMPRESSION: Small interval increase in hemithorax subcutaneous emphysema on the right. POS: [facility]
--- NOTE | 2016-12-10 14:26 | PRG ---
DATE OF SERVICE: 12/10/2016 SUBJECTIVE: Awake, alert, responsive and better. Less pain, less shortness of breath. PHYSICAL EXAMINATION: VITAL SIGNS: Temperature 99, blood pressure 130/74, sats 94% on 3 liters, 1145 in and 895 out. CHEST: Minimal crackles, right side. Left side is unremarkable. CARDIAC: Normal S1 and S2. No gallops. ABDOMEN: Soft. No masses. LABORATORY DATA: White count 23,000, H\T\H 12 and 41, platelet count normal. Creatinine is 1.54. IMPRESSION: 1. Status post right lower lobectomy, adenocarcinoma. 2. Leukocytosis. 3. No pneumothorax. PLAN: Continue Zosyn, neb treatments, supportive care. PT and we will follow.
--- NOTE | 2016-12-10 17:23 | PDOC.CTH ---
Cardiology Progress Note - Subjective No new issues. Same soreness on lobectomy side. - Objective Vital Signs Temp Pulse Resp BP BP Pulse Ox 12/10/16 15:22 98.8 F 87 24 H 124/69 90 L 12/10/16 13:41 89 16 12/10/16 11:46 98.1 F 102 H 24 H 117/74 96 12/10/16 09:20 139/77 12/10/16 08:00 99.3 F 114 H 16 139/77 94 L 12/10/16 07:20 92 L 12/10/16 07:19 91 16 Weight 176 lb 6 oz 12/09/16 12/10/16 12/11/16 06:59 06:59 06:59 Intake Total 1145 770 350 Output Total 895 785 Balance 250 -15 350 - Physical Examination General/Neuro: alert & oriented x3, NAD Lungs: unlabored respirations Heart: RRR Abdomen: NT/ND Extremities: other: (no edema) - Telemetry Telemetry Rhythm: BiV pacer, underl afib - Labs Result Diagrams: 12/10/16 05:58 12/10/16 05:58 - Assessment/Plan 1. Acute on chronic systolic heart failure 2. s/p chest tube placements 3. Squamous cell carcinoma 4. Ischemic CM. 5. Underlying afib 6. AICD in place 7. ANSHUL on CKD PLAN: - Continue same meds. - Continue to hold lasix.
[2016-12-10] MEDS: HYDROcodone/Acetaminophen 10/325 mg Tablet PO PRN ×2 (17:55→22:21)
[2016-12-10] MEDS: Docusate 100 MG CAP PO SCH (20:48)
[2016-12-10] MEDS: Bisacodyl 5 MG TAB PO SCH (20:49)
[2016-12-10] MEDS: Atorvastatin Calcium 40 MG TAB PO SCH (20:49)
--- OUTSIDE RECORDS SUMMARY | 2016-12-11 00:30 | XMS | Clinical Summary ---
:[address] [facility] Address [address] [place] [address] Phone Care Team Providers Name Role Phone [...]
[2016-12-11] MEDS: Piperacillin/Tazobactam 3.375 GM, Admixture Fee 1 EACH in Sodium Chloride 0.9% 100 ML IVPB SCH ×3 (05:27→19:50)
[2016-12-11 05:39] LABS: Anion Gap 7 mmol/L (10-20); BUN (Urea Nitrogen) 29 mg/dL (8.4-25.7); Calc. Creatinine Clearance 57 mL/min (70-130); Calcium 9.1 mg/dL (7.8-10.44); Carbon Dioxide 28 mmol/L (23-31); Chloride 110 mmol/L (98-107); Estimated GFR-MDRD 55
[2016-12-11 05:40] LABS: Band 4 % (5-11); Hematocrit 39.2 % (42.0-52.0); Mean Platelet Volume 7.6 fL (7.4-10.4); Neutrophil 88 % (42-75); Red Blood Cell (RBC) Count 3.84 mill/uL (4.70-6.10); White Blood Cell (WBC) Count 18.1 thou/uL (4.8-10.8)
--- NOTE | 2016-12-11 08:45 | RAD ---
PORTABLE CHEST ONE VIEW: 12/11/2016 6:39 a.m. HISTORY: Status post thoracotomy followup. FINDINGS: No significant interval change is seen since the previous day's exam. POS: [facility]
[2016-12-11] MEDS: Senokot S 8.6-50 MG TAB PO SCH ×2 (09:36→22:25)
[2016-12-11] MEDS: guaiFENesin ER 600 MG TAB PO SCH ×2 (09:36→22:23)
[2016-12-11] MEDS: Docusate 100 MG CAP PO SCH ×2 (09:37→22:23)
[2016-12-11] MEDS: Carvedilol 25 MG TAB PO SCH ×2 (09:37→22:24)
[2016-12-11] MEDS: Lisinopril 10 MG TAB PO SCH (09:37)
[2016-12-11] MEDS: HYDROcodone/Acetaminophen 10/325 mg Tablet PO PRN ×3 (09:38→22:25)
[2016-12-11] MEDS: Multivit, Therapeutic 1 TAB PO SCH (09:39)
[2016-12-11] MEDS: Milk Of Magnesia 30 ML UDCUP PO PRN (09:39)
--- NOTE | 2016-12-11 12:49 | PRG ---
DATE OF SERVICE: 12/11/2016 SERVICE: Pulmonary Medicine. INTERVAL HISTORY: The patient is doing fine from a respiratory and metabolic standpoint. He is clearing his infectious profile. He denies any current fevers, chills, nausea or vomiting. He has essentially returned to his usual state of health. That being said, he still has yet to really get out of bed in a meaningful way. He had a bowel movement in over a week. PHYSICAL EXAMINATION: VITAL SIGNS: Afebrile, pulse 97, blood pressure 144/78, respirations 18, saturation 97% on 2 liters nasal cannula. GENERAL: The patient is awake, alert, in no apparent distress. LUNGS: Decent air entry with a slightly prolonged expiratory phase. There is minimal wheezing present. Dependent crackles are not present. There are no rhonchi. HEART: Normal rate, regular. ABDOMEN: Soft, nontender, and nondistended. Bowel sounds positive. MUSCULOSKELETAL: No cyanosis or clubbing. No pitting in the bilateral lower extremities. NEUROLOGIC: Grossly nonfocal. LABORATORY DATA: WBC down trending to 18.1, hemoglobin 12.4, and platelets 216, 000. Creatinine 1.27 and down trending. Basic metabolic profile is otherwise unremarkable. IMAGING: Chest x-ray demonstrates chest tube in good position. There is no significant interval change. ASSESSMENT: 1. Acute hypoxic respiratory failure, stable. 2. Squamous cell carcinoma of the right lower lobe, status post lobectomy. 3. Community-acquired pneumonia. 4. Thoracotomy with resection of right lower lobe and lymph node excision, postoperative day #6. 5. Chronic obstructive pulmonary disease without current exacerbation. PLAN: I will repeat a CBC tomorrow morning. If it looks as though his white blood cell count continues to drop, we will switch him over to oral medications and complete a 7-day course of antibiotic. I will continue to follow while the patient remains inhouse. We are going to aggressively attempt to mobilize him today. He has not had a bowel movement over a week and I suspect that getting him out of bed into a chair may help facilitate this. Hopefully, we can minimize pain medications moving forward. AURELIO
[2016-12-11] MEDS: traMADol HCl 50 MG TAB PO PRN (16:08)
[2016-12-11] MEDS: Bisacodyl 5 MG TAB PO SCH (21:02)
[2016-12-11] MEDS: Atorvastatin Calcium 40 MG TAB PO SCH (22:23)
[2016-12-11] MEDS: Promethazine HCl 25 MG/ML VIAL IM PRN (23:15)
[2016-12-12] MEDS: Piperacillin/Tazobactam 3.375 GM, Admixture Fee 1 EACH in Sodium Chloride 0.9% 100 ML IVPB SCH ×4 (05:03)
[2016-12-12 05:10] LABS: Anion Gap 8 mmol/L (10-20); BUN (Urea Nitrogen) 28 mg/dL (8.4-25.7); Calc. Creatinine Clearance 63 mL/min (70-130); Calcium 8.9 mg/dL (7.8-10.44); Carbon Dioxide 31 mmol/L (23-31); Chloride 107 mmol/L (98-107); Estimated GFR-MDRD 62
[2016-12-12 05:35] LABS: Hematocrit 37.5 % (42.0-52.0); Mean Platelet Volume 7.3 fL (7.4-10.4); Neutrophil 85 % (42-75); White Blood Cell (WBC) Count 15.8 thou/uL (4.8-10.8)
--- NOTE | 2016-12-12 08:10 | RAD ---
PORTABLE CHEST ONE VIEW: Date: 12-12-16 Time: 7:18 a.m. History: Status post thoracotomy. FINDINGS/IMPRESSION: Comparison is made with exam of previous day. Changes of median sternotomy are again seen. Left sided AICD remains in place. Two right sided chest tubes are unchanged in position. No definite pneumothorax is seen. Subcutaneous emphysema is again noted in the right lateral chest wall. Infiltrates in the lower lung grider are again seen. POS: [facility]
--- NOTE | 2016-12-12 09:35 | PRG ---
DATE OF SERVICE: 12/12/2016 SERVICE: Pulmonary Medicine. INTERVAL HISTORY: The patient is doing fine from a cardiovascular and respiratory standpoint. He currently denies any fevers, chills, nausea, vomiting or chest discomfort. He got up and walked around yesterday. He sat in a chair for 2 hours. Today, he is improving strength and he feels much better. There were no overnight events. PHYSICAL EXAMINATION: VITAL SIGNS: Afebrile, pulse 88, blood pressure 108/63, respirations 18, and saturation 97% on 2 liters nasal cannula. GENERAL: Patient is awake, alert, in no apparent distress. LUNGS: Excellent air entry with no prolonged expiratory phase, wheezing, rhonchi or crackles. HEART: Normal rate, regular. ABDOMEN: Soft, nontender, and nondistended. Bowel sounds positive. MUSCULOSKELETAL: No cyanosis or clubbing. There is no pitting. GENITOURINARY: Almazan catheter in place. NEUROLOGIC: Grossly nonfocal. LABORATORY DATA: WBC 15.8, hemoglobin 12.0, and platelets 255,000. Creatinine is down trending to 1.15. Basic metabolic profile is otherwise unremarkable. IMAGING: Chest x-ray demonstrates slight interval improvement in the left lower lobe opacification. There are 2 right-sided chest tubes in good position. AICD is in place. No pneumothorax is identified. ASSESSMENT: 1. Acute hypoxic respiratory failure, stable. 2. Squamous cell carcinoma of the right lower lobe, status post lobectomy. 3. Community-acquired pneumonia. 4. Thoracotomy with resection of right lower lobe, lymph node excision, postoperative day #6. 5. Chronic obstructive pulmonary disease without current exacerbation. PLAN: I will put in a referral to case management for residential placement. At this point, he is too weak to take care of himself. He is placed for skilled physical therapy in order to regain strength for 1-2 weeks before transitioning home. We will continue our aggressive mobilization efforts and has worked with physical therapy. Antibiotics will be switched over to p.o. today and we will complete a 7-day course. MTDD
[2016-12-12] MEDS: Docusate 100 MG CAP PO SCH ×2 (09:40→21:32)
[2016-12-12] MEDS: Lisinopril 10 MG TAB PO SCH (09:40)
[2016-12-12] MEDS: guaiFENesin ER 600 MG TAB PO SCH ×2 (09:40→21:33)
[2016-12-12] MEDS: Multivit, Therapeutic 1 TAB PO SCH (09:40)
[2016-12-12] MEDS: Senokot S 8.6-50 MG TAB PO SCH ×2 (09:41→21:33)
[2016-12-12] MEDS: traMADol HCl 50 MG TAB PO PRN (09:41)
[2016-12-12] MEDS: Carvedilol 25 MG TAB PO SCH ×2 (09:41→21:33)
[2016-12-12] MEDS: Milk Of Magnesia 30 ML UDCUP PO PRN (09:42)
[2016-12-12] MEDS: HYDROcodone/Acetaminophen 10/325 mg Tablet PO PRN ×2 (15:29→21:52)
[2016-12-12] MEDS: Amoxicillin/Potassium Clav 875 MG TAB PO SCH (21:32)
[2016-12-12] MEDS: Bisacodyl 5 MG TAB PO SCH (21:32)
[2016-12-12] MEDS: Atorvastatin Calcium 40 MG TAB PO SCH (21:32)
[2016-12-13 05:36] LABS: Band 1 % (5-11); Hematocrit 40.8 % (42.0-52.0); Mean Platelet Volume 7.5 fL (7.4-10.4); Neutrophil 83 % (42-75); Red Blood Cell (RBC) Count 4.09 mill/uL (4.70-6.10); White Blood Cell (WBC) Count 13.1 thou/uL (4.8-10.8)
[2016-12-13 05:39] LABS: Anion Gap 9 mmol/L (10-20); BUN (Urea Nitrogen) 25 mg/dL (8.4-25.7); Calc. Creatinine Clearance 64 mL/min (70-130); Calcium 8.9 mg/dL (7.8-10.44); Carbon Dioxide 32 mmol/L (23-31); Chloride 106 mmol/L (98-107); Estimated GFR-MDRD 63
--- NOTE | 2016-12-13 08:00 | RAD ---
UPRIGHT PORTABLE CHEST ONE VIEW: HISTORY: A 76-year-old male, status post thoracotomy followup. COMPARISON: 12/12/2016 FINDINGS: Postop midline sternotomy with left ICD and aortic valve replacement. Two right chest tubes in plac e with some right-sided subcutaneous emphysema without significant pneumothorax. The subcutaneous e mphysema has progressed from the prior study. Chronic appearing linear and interstitial changes in both lungs, stable. IMPRESSION: 1. Two right chest tubes in place without significant right-sided pneumothorax. 2. Progressive right-sided subcutaneous emphysema. Continue short-term followup. POS: [facility]
--- NOTE | 2016-12-13 09:18 | PDOC.CTH ---
Cardiology Progress Note - Subjective The patient was seen and examined. He reports feeling well and plans to ambulate again today. He denies any CP, pressure or palpitations. - Objective Vital Signs Temp Pulse Resp BP Pulse Ox 12/13/16 07:51 92 20 94 L 12/13/16 04:00 99.0 F 98 20 130/77 95 12/13/16 00:36 97 12/13/16 00:00 98.0 F 99 22 H 120/66 100 12/12/16 23:42 97 16 97 Weight 179 lb 12/12/16 12/13/16 12/14/16 06:59 06:59 06:59 Intake Total 1690 1170 Output Total 1280 1440 Balance 410 -270 - Physical Examination General/Neuro: alert & oriented x3, NAD Neck: no JVD present Lungs: unlabored respirations Heart: RRR Abdomen: soft Extremities: other: (no edema) - Telemetry Telemetry Rhythm: BiV paced - Labs Result Diagrams: 12/13/16 04:15 12/13/16 04:15 - Assessment/Plan 1. Acute on Chronic Systolic Heart Failure 2. Ischemic Cardiomyopathy s/p AICD 3. Squamous cell carcinoma of the right lower lobe s/p lobectomy & chest tube placement 4.Underlying Afib 5. ANSHUL on CKD PLAN: Mr. Lorenzana is stable from a CV standpoint. Academic Tutor has improved and lasix has been resumed. His rhythm is paced. We will continue the current medical therapies.
[2016-12-13] MEDS: Potassium Chloride 20 MEQ TAB PO SCH (10:20)
[2016-12-13] MEDS: Carvedilol 25 MG TAB PO SCH ×2 (10:21→20:51)
[2016-12-13] MEDS: guaiFENesin ER 600 MG TAB PO SCH ×2 (10:21→20:51)
[2016-12-13] MEDS: Multivit, Therapeutic 1 TAB PO SCH (10:21)
[2016-12-13] MEDS: Amoxicillin/Potassium Clav 875 MG TAB PO SCH ×2 (10:21→20:51)
[2016-12-13] MEDS: Furosemide 40 MG TAB PO SCH (10:21)
[2016-12-13] MEDS: Docusate 100 MG CAP PO SCH ×2 (10:22→20:52)
[2016-12-13] MEDS: Senokot S 8.6-50 MG TAB PO SCH ×2 (10:22→20:51)
[2016-12-13] MEDS: Lisinopril 10 MG TAB PO SCH (10:22)
--- NOTE | 2016-12-13 13:38 | PRG ---
DATE OF SERVICE: 12/13/2016 SERVICE: Pulmonary Medicine INTERVAL HISTORY: The patient is doing fine from a respiratory standpoint. He had 2 bowel movement s yesterday. This morning, he feels much improved. He denies any current fevers, chills, nausea or vomiting. There have been no overnight events. He got up and walked with physical therapy yesterd ay and is currently sitting in a chair. PHYSICAL EXAMINATION: VITAL SIGNS: Afebrile, pulse 101, blood pressure 146/48, respirations 20, saturation 97% on room ai r. GENERAL: The patient is awake, alert, no apparent distress. LUNGS: Decent air entry. There is a slightly prolonged expiratory phase. I do not appreciate any rhonchi or crackles today. HEART: Normal rate, regular. ABDOMEN: Soft, nontender, nondistended. Bowel sounds positive. MUSCULOSKELETAL: No cyanosis or clubbing. No pitting in the bilateral lower extremities. NEUROLOGIC: Grossly nonfocal. LABORATORY DATA: WBC 13.1, hemoglobin 12.7, platelets 262,000. Neutrophil count is starting to garrett nd downward gently. Creatinine 1.13. Basic metabolic profile is otherwise unremarkable. IMAGING: Chest x-ray demonstrates no significant pneumothorax. There are hyperexpanded lung grider . There is some subcutaneous emphysema on the right. Two chest tubes on the right are in good posi tion. ASSESSMENT: 1. Acute hypoxic respiratory failure, resolved. 2. Squamous cell carcinoma of the right lower lobe, status post lobectomy. 3. Community-acquired pneumonia. 4. Thoracotomy with resection of right lower lobe and lymph node excision, postoperative day #7. 5. Chronic obstructive pulmonary disease without current exacerbation. PLAN: The patient is stable from a respiratory standpoint. We are awaiting the chest tube to be re moved once the patient starts making fluid in this space. Pulmonary Critical Care will continue to follow while the patient remains in house. We will complete our course of antibiotics and give the patient a lab holiday in the morning.
[2016-12-13] MEDS: Atorvastatin Calcium 40 MG TAB PO SCH (20:51)
[2016-12-13] MEDS: Bisacodyl 5 MG TAB PO SCH (20:52)
--- NOTE | 2016-12-14 08:24 | RAD ---
PORTABLE CHEST ONE VIEW: Date: 12-14-16 Time: 6:55 a.m. History: Status post thoracotomy. Follow up. FINDINGS/IMPRESSION: No significant interval change is seen since the previous day's exam at 7:11 a.m. POS: [facility]
[2016-12-14] MEDS: Docusate 100 MG CAP PO SCH ×2 (10:09→21:23)
[2016-12-14] MEDS: Senokot S 8.6-50 MG TAB PO SCH ×2 (10:09→21:23)
[2016-12-14] MEDS: Amoxicillin/Potassium Clav 875 MG TAB PO SCH ×2 (10:09→21:23)
[2016-12-14] MEDS: Lisinopril 10 MG TAB PO SCH (10:09)
[2016-12-14] MEDS: Potassium Chloride 20 MEQ TAB PO SCH (10:10)
[2016-12-14] MEDS: guaiFENesin ER 600 MG TAB PO SCH ×2 (10:10→21:23)
[2016-12-14] MEDS: Carvedilol 25 MG TAB PO SCH ×2 (10:10→21:23)
[2016-12-14] MEDS: Furosemide 40 MG TAB PO SCH (10:10)
[2016-12-14] MEDS: Multivit, Therapeutic 1 TAB PO SCH (10:10)
--- NOTE | 2016-12-14 13:19 | PRG ---
DATE OF SERVICE: 12/14/2016 SERVICE: Pulmonary Medicine. INTERVAL HISTORY: The patient is doing fantastic from a cardiovascular and respiratory standpoint. He has been up walking in the hallways. He is in the bathroom right now. He has had multiple succ essful bowel movements. He denies any current fevers, chills, nausea or vomiting. There are no ove rnight events. PHYSICAL EXAMINATION: VITAL SIGNS: Afebrile, pulse 105, blood pressure 129/86, respirations 16, saturation 94% on room ai r. GENERAL: Patient is awake, alert, in no apparent distress. LUNGS: Excellent air entry. There is no prolonged expiratory phase, wheezing, rhonchi or crackles. HEART: Normal rate, regular. ABDOMEN: Soft, nontender, nondistended, bowel sounds positive. MUSCULOSKELETAL: No cyanosis or clubbing. No pitting in the bilateral lower extremities. NEUROLOGIC: Grossly nonfocal. IMAGING: Chest x-ray demonstrates good expansion in the right lung with chest tubes in good positio n. There is no significant interval change. The left lower lobe infiltrate continues to clear. ASSESSMENT: 1. Acute hypoxic respiratory failure, resolved. 2. Squamous cell carcinoma of the right lower lobe, status post lobectomy. 3. Community-acquired pneumonia. 4. Thoracotomy with resection of right lower lobe and lymph node dissection, postop day #8. 5. Chronic obstructive pulmonary disease without current exacerbation. PLAN: We will continue to follow along. The patient will be able to have his chest tube removed ei ther today or tomorrow. Pulmonary or Critical Care will continue to follow for the time being. He requires 1 more day of antibiotics before these are going to be discontinued.
[2016-12-14 13:33] VITALS: BMI 28.0
--- NOTE | 2016-12-14 16:45 | RAD ---
PORTABLE CHEST: 12/14/16 HISTORY: Followup lobectomy. COMPARISON: 12/14/16 at 6:55 a.m. Diffuse subcutaneous emphysema of the right chest. The right chest tubes have been removed. No signi ficant pneumothorax identified. Diffuse parenchymal haziness in the right mid to lower lung suggests alveolar opacity from edema, atelectasis or infiltrate. This is stable. Left lung remains clear and stable. IMPRESSION: Right chest tubes have been removed. No significant pneumothorax. There continues to be parenchymal opacity in the right mid and lower lung with subcutaneous emphysema. POS: [facility]
[2016-12-14] MEDS: Bisacodyl 5 MG TAB PO SCH (21:23)
[2016-12-14] MEDS: Atorvastatin Calcium 40 MG TAB PO SCH (21:23)
[2016-12-15 05:22] LABS: #Eosinphils 0.3 thou/uL (0.0-0.7); #Lymphocytes 1.1 thou/uL (1.20-3.40); #Neutrophils 12.8 thou/uL (1.40-6.50); %Basophils 0.2 % (0.0-1.0); %Eosinophils 1.9 % (0.0-10.0); %Lymphocytes 7.2 % (21.0-51.0); %Monocytes 6.5 % (0.0-10.0); Hematocrit 39.2 % (42.0-52.0); Mean Platelet Volume 7.6 fL (7.4-10.4); Red Blood Cell (RBC) Count 3.92 mill/uL (4.70-6.10); White Blood Cell (WBC) Count 15.3 thou/uL (4.8-10.8)
[2016-12-15 05:49] LABS: Anion Gap 8 mmol/L (10-20); BUN (Urea Nitrogen) 17 mg/dL (8.4-25.7); Calc. Creatinine Clearance 72 mL/min (70-130); Calcium 8.5 mg/dL (7.8-10.44); Carbon Dioxide 29 mmol/L (23-31); Chloride 107 mmol/L (98-107); Estimated GFR-MDRD 74
[2016-12-15] MEDS: Docusate 100 MG CAP PO SCH ×2 (09:13→20:52)
[2016-12-15] MEDS: Furosemide 40 MG TAB PO SCH (09:13)
[2016-12-15] MEDS: Carvedilol 25 MG TAB PO SCH ×2 (09:13→20:51)
[2016-12-15] MEDS: Amoxicillin/Potassium Clav 875 MG TAB PO SCH ×2 (09:13→20:52)
[2016-12-15] MEDS: Potassium Chloride 20 MEQ TAB PO SCH (09:14)
[2016-12-15] MEDS: guaiFENesin ER 600 MG TAB PO SCH ×2 (09:14→20:52)
[2016-12-15] MEDS: Lisinopril 10 MG TAB PO SCH (09:14)
[2016-12-15] MEDS: Senokot S 8.6-50 MG TAB PO SCH ×2 (09:18→20:51)
[2016-12-15] MEDS: Multivit, Therapeutic 1 TAB PO SCH (09:18)
--- NOTE | 2016-12-15 09:56 | RAD ---
1 VIEW MARIA DEL CARMEN: Date: 12/15/16 HISTORY: Status post thoracotomy. COMPARISON: 12/14/16. FINDINGS: Sternotomy wires are noted. Left-sided transvenous defibrillator is again identified. There are ster notomy wires. Prosthetic heart valve is noted. Normal cardiac silhouette. Lungs are hyperinflated wi th chronic changes. Stable subcutaneous emphysema in the right hemithorax. Interval development of a small right-sided pneumothorax. IMPRESSION: Interval development of small right-sided pneumothorax. Results of study discussed with Steph, patient's nurse, on 12/15/16 at 0805 hours. CODE CR. POS: [facility]
--- NOTE | 2016-12-15 16:48 | PRG ---
DATE OF SERVICE: 12/15/2016 SERVICE: Pulmonary Medicine. INTERVAL HISTORY: The patient is doing fine from a cardiovascular and respiratory standpoint. He c urrently denies any shortness of breath. His chest pain has resolved once the chest tubes were maria eugenia ginna. He has no specific complaints right now. There were no overnight events or fevers. He is not having any cough or significant sputum production any longer. Overall, he feels much improved. PHYSICAL EXAMINATION: VITAL SIGNS: Afebrile, pulse 97, blood pressure 140/70, respirations 18, saturation 95% on 2 liters nasal cannula. GENERAL: Patient is awake, alert, in no apparent distress. LUNGS: Excellent air entry. There is a slightly prolonged expiratory phase. Decreased air entry o n the right. Rhonchi are present, but clear with cough. There is minimal expiratory wheezing prese nt. HEART: Normal rate, regular. ABDOMEN: Soft, nontender, and nondistended. Bowel sounds positive. MUSCULOSKELETAL: No cyanosis or clubbing. No pitting in the bilateral lower extremities. NEUROLOGIC: Grossly nonfocal. LABORATORY DATA: WBC 15.3 and gently up trending, hemoglobin 13.0, platelets 245,000. Basic metabo lic profile is completely unremarkable. IMAGING: Chest x-ray demonstrates a very small rim of pneumothorax on the right side and in the rig ht basilar region adjacent to the diaphragm. Other findings are consistent with volume loss on the right are present. COPD is also evident. ASSESSMENT: 1. Acute hypoxic respiratory failure, resolved. 2. Squamous cell carcinoma of the right lower lobe, status post lobectomy. 3. Hydropneumothorax ex vacuo, suspected. 4. Community-acquired pneumonia, status post 8 days of antibiotics with Zosyn followed by pmichelle mccormick. 5. Thoracotomy with resection of the right lower lobe and lymph node dissection, postop day #9. 6. Chronic obstructive pulmonary disease without current exacerbation. DISCUSSION AND PLAN: From a purely respiratory perspective, the patient is stable for discharge fro m the hospital provided he is strong enough to go directly home. White blood cell count is trending upward gently. That being said, the patient feels much improved. If he were to spike a fever, add itional investigation may needed to be considered and I have asked him to notify a physician or pres ent to the emergency department with any of these findings in the outpatient setting. My suspicion is that the pneumothorax just represents volume loss on that side and we will turn into hydropneumot horax ex vacuo if we give it more time. A repeat chest x-ray is scheduled for tomorrow morning. Pu lmonary will continue to follow while the patient remains inhouse.
[2016-12-15] MEDS: Atorvastatin Calcium 40 MG TAB PO SCH (20:51)
[2016-12-15] MEDS: Bisacodyl 5 MG TAB PO SCH (20:52)
[2016-12-16 06:31] LABS: Band 1 % (5-11); Hematocrit 38.1 % (42.0-52.0); Mean Platelet Volume 7.3 fL (7.4-10.4); Neutrophil 89 % (42-75); Red Blood Cell (RBC) Count 3.82 mill/uL (4.70-6.10); White Blood Cell (WBC) Count 14.7 thou/uL (4.8-10.8)
[2016-12-16 06:36] LABS: Anion Gap 9 mmol/L (10-20); BUN (Urea Nitrogen) 15 mg/dL (8.4-25.7); Calc. Creatinine Clearance 62 mL/min (70-130); Calcium 8.2 mg/dL (7.8-10.44); Carbon Dioxide 27 mmol/L (23-31); Chloride 109 mmol/L (98-107); Estimated GFR-MDRD 63
--- NOTE | 2016-12-16 08:41 | RAD ---
CHEST 1 VIEW: Date: 12/16/16 COMPARISON: 12/15/16. HISTORY: Status post thoracotomy. FINDINGS: Stable postoperative changes. Stable defibrillation. Stable right-sided pneumothorax. IMPRESSION: No significant interval change. POS: [facility]
[2016-12-16] MEDS: Docusate 100 MG CAP PO SCH (08:58)
[2016-12-16] MEDS: Potassium Chloride 20 MEQ TAB PO SCH (08:58)
[2016-12-16] MEDS: Carvedilol 25 MG TAB PO SCH ×2 (08:58→21:07)
[2016-12-16] MEDS: Furosemide 40 MG TAB PO SCH (08:59)
[2016-12-16] MEDS: Lisinopril 10 MG TAB PO SCH (08:59)
[2016-12-16] MEDS: Senokot S 8.6-50 MG TAB PO SCH (09:00)
[2016-12-16] MEDS: guaiFENesin ER 600 MG TAB PO SCH ×2 (09:00→21:07)
[2016-12-16] MEDS: Multivit, Therapeutic 1 TAB PO SCH (09:01)
[2016-12-16] MEDS ORDERED: Diphenoxylate HCl/Atropine Tablet PO PRN (12:21)
--- NOTE | 2016-12-16 16:01 | PRG ---
DATE OF SERVICE: 12/16/2016 SUBJECTIVE: Mr. Seng Lorenzana has no complaints. He says he is feeling better. He has had no fever. OBJECTIVE: VITAL SIGNS: Heart rate is 101, blood pressure 117/82, respiratory rate is 20 and oximetry is 98%. LUNGS: Clear. HEART: Regular rhythm. ABDOMEN: Soft. LABORATORY AND IMAGING DATA: White count is 14.7. He only has 1% bands on his peripheral smear. C hest radiograph shows small stable pneumothorax. IMPRESSION: 1. Status post lobectomy. 2. Pneumonia, status post IV and p.o. antibiotics. 3. Status post resection of a tumor, which was a T1 squamous cell tumor, negative lymph nodes. We will continue to follow.
[2016-12-16] MEDS ORDERED: Warfarin Sodium 2 MG TAB PO SCH (17:00)
[2016-12-16] MEDS: Bisacodyl 5 MG TAB PO SCH (21:07)
[2016-12-16] MEDS: Atorvastatin Calcium 40 MG TAB PO SCH (21:07)
[2016-12-16] MEDS ORDERED: Loperamide HCl 2 MG CAP PO SCH (22:15)
[2016-12-17] MEDS: Carvedilol 25 MG TAB PO SCH (08:56)
[2016-12-17] MEDS: guaiFENesin ER 600 MG TAB PO SCH (08:57)
[2016-12-17] MEDS: Furosemide 40 MG TAB PO SCH (08:57)
[2016-12-17] MEDS: Potassium Chloride 20 MEQ TAB PO SCH (08:57)
[2016-12-17] MEDS: Multivit, Therapeutic 1 TAB PO SCH (08:57)
[2016-12-17] MEDS: Lisinopril 10 MG TAB PO SCH (08:57)
--- NOTE | 2016-12-17 09:27 | RAD ---
PORTABLE CHEST: Date: 12/17/16 HISTORY: Follow-up thoracostomy. COMPARISON: 12/16/16. FINDINGS: A small right pneumothorax is again noted. There is right subcutaneous emphysema again noted. There is patchy atelectasis and/or infiltrate changes in the right mid and lower lung, which appear stable . The left lung remains clear and unchanged. Heart is mildly enlarged with postop sternotomy change and AICD leads again noted. IMPRESSION: Small right pneumothorax with parenchymal and chest wall findings on the right, unchanged from yeste rday. POS: [facility]
[2016-12-17] MEDS ORDERED: FLU VACC TS2017-18 (>65YR) 0.5 ML SYRINGE IM ONE (10:15)
[2016-12-17 19:57] VITALS: BP 103/62; TEMP 98
--- NOTE | 2016-12-18 12:13 | DIS ---
REASON FOR ADMISSION: Right lower lobectomy. CLINICAL RESUME: The patient is a 76-year-old male found to have a right lower lobe mass, which on CT guided needle biopsy returned as moderately differentiated squamous cell carcinoma. PET scan revealed no evident distant disease. The patient was referred for right lower lobectomy and on 12/04/2016 underwent right lower lobectomy with mediastinal lymph node staging. Path returned as moderately differentiated invasive squamous cell carcinoma with all lymph nodes negative for metastatic carcinoma. Final stage was T1a, N0, M0. His postoperative course was noteworthy for somewhat protracted chest tube drainage, likely attributed in part to his congestive heart failure. An air leak resolved, at which time chest tubes were placed to waterseal. Once acceptable drainage criteria was met, tubes were pulled. Follow up chest x-ray did demonstrate a stable small pneumothorax at the right base. He was ultimately discharged on 12/17/2016 in stable condition. Follow up will be arranged in our office in 2 weeks or sooner p.r.n. WOUND CARE: As instructed. ACTIVITY: Light for the next 2 weeks. DISCHARGE MEDICATIONS: He is to resume his complete home regimen without change including resumption of his Coumadin for his atrial fibrillation. NEW MEDICATION: [place] 5/325 mg 1-2 q.4-6 hours p.r.n. MTDD
== END 2016-12-17 12:30 | disposition home or self-care (01) | DRG 163 ==
LOC: SURG A 08:36 → CCU 17:07 → 2NO 12-06 14:38
PROVIDERS: ADMIT Thoracic Surgery (Cardiothoracic Vascular Surgery); ATTEND Thoracic Surgery (Cardiothoracic Vascular Surgery)
PROC: 0BBF0ZZ Excision of Right Lower Lung Lobe, Open Approach (ICD-10-PCS; principal; 2016-12-04)
PROC: 07B70ZX Excision of Thorax Lymphatic, Open Approach, Diagnostic (ICD-10-PCS; 2016-12-04)
PROC: 3E0T3BZ Introduction of Anesthetic Agent into Peripheral Nerves and Plexi, Percutaneous Approach (ICD-10-PCS; 2016-12-04)
DX: C34.31 Malignant neoplasm of lower lobe, right bronchus or lung (principal); J96.01 Acute respiratory failure with hypoxia; J18.9 Pneumonia, unspecified organism; I50.23 Acute on chronic systolic (congestive) heart failure; N17.9 Acute kidney failure, unspecified; I48.0 Paroxysmal atrial fibrillation; I13.0 Hypertensive heart and chronic kidney disease with heart failure and stage 1 through stage 4 chronic kidney disease, or unspecified chronic kidney disease; I34.0 Nonrheumatic mitral (valve) insufficiency; J44.0 Chronic obstructive pulmonary disease with (acute) lower respiratory infection; J98.11 Atelectasis; J93.9 Pneumothorax, unspecified; Z87.891 Personal history of nicotine dependence; I25.5 Ischemic cardiomyopathy; E78.2 Mixed hyperlipidemia; Z95.810 Presence of automatic (implantable) cardiac defibrillator; I25.10 Atherosclerotic heart disease of native coronary artery without angina pectoris; Z95.1 Presence of aortocoronary bypass graft; I73.9 Peripheral vascular disease, unspecified; N18.9 Chronic kidney disease, unspecified
CPT/HCPCS: 36415; 71010; 80048; 82805; 83735; 84100; 85025; 85610; 85730; 86850; 86900; 86901; 87324; 87449; 88305; 88309; 90471; 90682; 93005; 93010; 94640; 94760; A4216; G0008; G8978-GP-CK; G8979-GP-CI; J1160; J1642; J1650; J1885; J2250; J2405; J2543; J2550; J2704; J3010; J3490; J7050; J7620; J7644; Q2036; S0020

== ENCOUNTER 2016-12-29 12:44 | Inpatient (IN) | payer MEDICARE ==
[2016-12-29 13:27] LABS: #Eosinphils 0.1 thou/uL (0.0-0.7); #Lymphocytes 1.1 thou/uL (1.20-3.40); #Neutrophils 10.5 thou/uL (1.40-6.50); %Basophils 0.1 % (0.0-1.0); %Eosinophils 0.5 % (0.0-10.0); %Lymphocytes 8.4 % (21.0-51.0); %Monocytes 7.7 % (0.0-10.0); Hematocrit 36.5 % (42.0-52.0); Mean Platelet Volume 7.5 fL (7.4-10.4); White Blood Cell (WBC) Count 12.6 thou/uL (4.8-10.8)
[2016-12-29 13:36] LABS: PTT 68.1 SEC (22.9-36.1); Prothrombin Time 46.2 SEC (12.0-14.7)
--- NOTE | 2016-12-29 13:39 | RAD ---
UPRIGHT PORTABLE CHEST 1 VIEW: Date: 12/29/16 HISTORY: 76-year-old male with history of dyspnea and elevated heart rate. COMPARISON: 12/17/16 and 12/26/16. FINDINGS: Persistent small right-sided hydropneumothorax, which is stable to minimally smaller than on the 09/04 study. Postop midline sternotomy and valve replacement and left ICD, as well as surgical clips over the right hilar region. Increased linear and interstitial markings bilaterally, stable. IMPRESSION: Stable small right-sided hydropneumothorax. Stable linear and interstitial parenchymal changes bilat erally and postop changes. POS: [facility]
[2016-12-29 13:47] LABS: Digoxin Less than 0.15 ng/mL (0.8-2.0)
[2016-12-29 13:53] LABS: Troponin I 0.027 ng/mL (< 0.028)
[2016-12-29 13:57] LABS: ALT (SGPT) 56 U/L (8-55); AST (SGOT) 22 U/L (5-34); Alkaline Phosphatase 201 U/L (40-150); Anion Gap 15 mmol/L (10-20); BUN (Urea Nitrogen) 23 mg/dL (8.4-25.7); Bilirubin, Total 0.5 mg/dL (0.2-1.2); CK (CPK) 39 U/L (30-200); Calc. Creatinine Clearance 0 mL/min (70-130); Calcium 8.5 mg/dL (7.8-10.44); Carbon Dioxide 22 mmol/L (23-31); Chloride 112 mmol/L (98-107); Estimated GFR-MDRD 58; Globulin 2.6 g/dL (2.4-3.5); Lipase 27 U/L (8-78); Protein, Total 5.4 g/dL (5.8-8.1)
--- NOTE | 2016-12-29 16:14 | HP ---
PRIMARY CARE PHYSICIAN: Jane Ordonez MD. REASON FOR ADMISSION: Palpitations. HISTORY OF PRESENT ILLNESS: This is a 76-year-old male, who was recently admitted in our hospital o n 12/04/2016. During that admission, the patient underwent right lower lobectomy with mediastinal l ymph node dissection on 12/04/2016 and patient was discharged home on 12/19/2016. Patient's family member reports that, since discharge, the patient is having difficulty controlling his pulse rate. He feels intermittently palpitation, dizziness. They are checking his pulse and blood pressure at h ome. His blood pressure remained stable, but his pulse is variable from 130-140s. Whenever pulse r ate goes above 130, patient feels dizziness, palpitation, and weak. Lately, this was going on more frequently, and that is why today he decided to come to the emergency room for evaluation. Patient denies any fever or chills. He denies any relation of palpitation with any particular things. Ther e is no relation of pulse rate to go fast with any particular event. He denies any anxiety. He den ies any fever. He denies any significant amount of pain. Whenever he feels palpitation and heart r ate goes fast, at that time he feels a funny sensation in his chest and mild shortness of breath and he also feels nausea. Today, he was feeling more diaphoresis along with dizziness and he was feeli ng about to pass out and that is why he was concerned about it and decided to come to the emergency room for evaluation. This patient has chronic atrial fibrillation and he is on chronic anticoagulation therapy with warfa rin. Today, in the emergency room, routine blood tests showed INR 4.6. He denies any bleeding from any sites. He denies any cough or hemoptysis. He denies any melena, hematochezia, or hematuria. He denies any fever or chills. He denies any cough. He does have chronic shortness of breath since surgery. The patient's reports that he is not taking medication regularly, and this morning, he did not take any medication. The patient's also reports that he is not taking digoxin at home frequent ly as well. ALLERGIES: No known drug allergies. CURRENT HOME MEDICATIONS: Ventolin nebulization q.6 hourly, Lipitor 40 mg p.o. at bedtime, Coreg 12 .5 mg p.o. b.i.d., Plavix 75 mg p.o. daily, Cartia XT 180 mg p.o. daily, Lasix 40 mg p.o. daily, Nor co 5 one tablet q.6 hourly p.r.n., Atrovent nebulization q.i.d., Imdur 60 mg p.o. daily, lisinopril 20 mg p.o. daily, multivitamin 1 tablet p.o. daily, potassium chloride 20 mEq p.o. daily, warfarin 4 mg p.o. daily. PAST MEDICAL HISTORY: 1. Atrial fibrillation, coronary artery disease, chronic congestive heart failure. Based on most r ecent echocardiography, he has systolic dysfunction with EF 25%-30%. 2. Hypertension. 3. History of squamous cell carcinoma of the lung, treated with lobectomy. 4. COPD. 5. Dyslipidemia. PAST SURGICAL HISTORY: 1. Coronary artery bypass grafting. 2. Mitral valve repair. 3. Right lower lobectomy with mediastinal lymph node staging. 4. AICD placement. 5. Cardiac catheterization with stent placement. 6. Hernia repair. 7. Appendectomy. PAST PSYCHIATRIC HISTORY: Reviewed and negative. SOCIAL HISTORY: Patient is a former smoker. He quit smoking few years ago; otherwise, he used to s moke half-pack per day for several years. He denies any alcohol abuse. He denies any other illicit drug abuse. He is and lives at home with his family. FAMILY HISTORY: Significantly positive for heart disease among several family members. REVIEW OF SYSTEMS: The following complete review of systems was negative, unless otherwise mentione d in the HPI or below: Constitutional: Weight loss or gain, ability to conduct usual activities. Skin: Rash, itching. Eyes: Double vision, pain. ENT/Mouth: Nose bleeding, neck stiffness, pain, tenderness. Cardiovascular: Palpitations, dyspnea on exertion, orthopnea. Respiratory: Shortnes s of breath, wheezing, cough, hemoptysis, fever or night sweats. Gastrointestinal: Poor appetite, abdominal pain, heartburn, nausea, vomiting, constipation, or diarrhea. Genitourinary: Urgency, fr equency, dysuria, nocturia. Musculoskeletal: Pain, swelling. Neurologic/Psychiatric: Anxiety, dep ression. Allergy/Immunologic: Skin rash, bleeding tendency. EMERGENCY ROOM COURSE: Patient is given aspirin. PHYSICAL EXAMINATION: VITAL SIGNS: Currently, blood pressure 119/77, pulse 90 and irregular, respiratory rate 24, tempera ture 97.7, saturation 94% on room air, weight 73.5 kilograms. GENERAL: Patient is currently alert, awake, in no obvious acute distress. HEENT: Head: Normocephalic, atraumatic. Eyes: Pupils round, reactive to light. Extraocular musc le intact. ENT: Oropharynx within normal limits. Moist mucous membranes. No oral lesions. No ph aryngeal erythema, no exudate. NECK: Supple. Range of motion is normal. No meningeal signs of irritation. LUNGS: Clear to auscultation without any rhonchi or rales, air entry reduced basally, especially on the right side. CARDIAC: S1, S2, irregular. No significant murmur elicited, no gallop, no rub. ABDOMEN: Soft, bowel sounds present, nontender, nondistended. No organomegaly, no mass, no suprapu bic tenderness. BACK EXAMINATION: Unremarkable, no CVA tenderness. EXTREMITIES: Upper extremities, passive movement of all joints are normal. Lower extremities, no e stephie, good peripheral pulsation. SKIN: No skin rash. HEMATOLOGICAL SYSTEM: No lymphadenopathy. PSYCHIATRIC: Normal affect. SIGNIFICANT LABS: CBC: WBC 12.6, hemoglobin 11.5, MCV 101.0, platelets 318. INR 4.6. BMP: Sodiu m 144, potassium 4.6, chloride 112, carbon dioxide 22, anion gap 15, BUN 23, creatinine 1.23, glucos e 108, calcium 8.5. LFT: AST 22, ALT 56, alkaline phosphatase 201, albumin 2.8, lipase 27, CK-MB 2 .1, troponin I 0.027. Digoxin level less than 0.15. Chest x-ray, based on my review, stable small right-sided hydropneumothorax. ASSESSMENT AND PLAN: 1. Palpitation, likely due to paroxysmal atrial fibrillation with rapid ventricular response. At t his point, we are keeping this patient in the hospital. We are going to monitor on telemetry floor. We will consult Cardiology per patient request. We will obtain echocardiography to assess ejectio n fraction and other structural abnormality. During this admission, we will try to adjust his medic ation for better rate control for atrial fibrillation. 2. Supratherapeutic INR. This patient does not have any bleeding from any site at this point. We will want to repeat the INR daily. We will hold on warfarin therapy. 3. Macrocytic anemia. We will continue folic acid, vitamin B12 therapy while in hospital. 4. Abnormal liver function tests. We will check hepatitis profile and we will obtain right upper q uadrant ultrasound to rule out any gallbladder pathology. 5. Dyslipidemia. We will continue Lipitor 40 mg p.o. at bedtime and check a lipid profile tomorrow morning. 6. Chronic obstructive pulmonary disease. We will continue DuoNeb therapy every 6 houly p.r.n. and Dulera 2 puffs inhalation b.i.d. 7. Coronary artery disease with a history of coronary artery bypass graft. We will continue Plavix 75 mg p.o. daily, Imdur 60 mg p.o. daily, Coreg 12.5 mg p.o. b.i.d. 8. Hypertension. We will continue lisinopril 10 mg p.o. daily. 9. Chronic systolic heart failure. Currently, patient is euvolemic. We will continue Lasix 40 mg p.o. daily. 10. Squamous cell carcinoma of lung, treated with lobectomy. 11. Deep vein thrombosis prophylaxis. Sequential compression device boots. No Lovenox because camila iekhurram is already on warfarin therapy and currently patient has supratherapeutic INR. 12. Gastrointestinal prophylaxis, Protonix 40 mg p.o. daily. CODE STATUS: The patient is FULL CODE. The patient's is surrogate decision maker. Disposition plan based on clinical course. Plan of care discussed with the patient's family member at bedside in the emergency room.
[2016-12-29] MEDS ORDERED: Eucerin (Mineral Oil/Petrolatum,White) 30 gm Jar TOP PRN (16:58)
[2016-12-29] MEDS ORDERED: Chloraseptic Spray 180 ml Bottle PO PRN (16:58)
[2016-12-29] MEDS ORDERED: Sodium Chloride 0.65% Nasal 44 ML BOT EA NARE PRN (16:58)
[2016-12-29] MEDS ORDERED: Labetalol HCl 100 MG/20 ML VIAL SLOW IVP PRN (16:58)
[2016-12-29] MEDS ORDERED: Loratadine 10 MG TAB PO PRN (16:58)
[2016-12-29] MEDS ORDERED: Zolpidem Tartrate 5 MG TAB PO PRN (16:58)
[2016-12-29] MEDS ORDERED: Nitroglycerin 0.4 MG TAB (25 Tab Bottle) PO PRN (16:58)
[2016-12-29] MEDS ORDERED: Milk Of Magnesia 30 ML UDCUP PO PRN (16:58)
[2016-12-29] MEDS ORDERED: Artificial Tears 18 DROP/0.9 ML EA EYE PRN (16:58)
[2016-12-29] MEDS ORDERED: Diabetic Tussin 200 MG/10 ML UDCUP PO PRN (16:58)
[2016-12-29] MEDS ORDERED: Acetaminophen 325 MG TAB PO PRN (16:58)
[2016-12-29] MEDS ORDERED: Mag-Al 1200 mg/1200 mg/30 ML UDCUP PO PRN (16:58)
[2016-12-29] MEDS ORDERED: Benzonatate 100 MG CAP PO PRN (16:58)
[2016-12-29] MEDS ORDERED: Loperamide HCl 2 MG CAP PO PRN (16:58)
[2016-12-29] MEDS ORDERED: Senokot 8.6 MG TAB PO PRN (16:58)
[2016-12-29 18:00] LABS: Troponin I 0.035 ng/mL (< 0.028)
[2016-12-29] MEDS: Mometasone/Formoterol 120 PUFF INHALER INH SCH (18:27)
[2016-12-29 20:21] LABS: Troponin I 0.033 ng/mL (< 0.028)
[2016-12-29] MEDS: Carvedilol 25 MG TAB PO SCH (20:39)
[2016-12-29] MEDS: Atorvastatin Calcium 40 MG TAB PO SCH (20:39)
[2016-12-30] MEDS: HYDROcodone/Acetaminophen 5/325 mg Tablet PO PRN ×2 (00:15→17:40)
[2016-12-30 05:37] LABS: #Eosinphils 0.1 thou/uL (0.0-0.7); #Lymphocytes 1.1 thou/uL (1.20-3.40); #Neutrophils 9.2 thou/uL (1.40-6.50); %Basophils 0.2 % (0.0-1.0); %Eosinophils 1.1 % (0.0-10.0); %Lymphocytes 9.7 % (21.0-51.0); %Monocytes 8.5 % (0.0-10.0); Hematocrit 34.8 % (42.0-52.0); Mean Platelet Volume 7.2 fL (7.4-10.4); Red Blood Cell (RBC) Count 3.44 mill/uL (4.70-6.10); White Blood Cell (WBC) Count 11.5 thou/uL (4.8-10.8)
[2016-12-30 05:42] LABS: Prothrombin Time 39.4 SEC (12.0-14.7)
[2016-12-30 06:02] LABS: ALT (SGPT) 43 U/L (8-55); AST (SGOT) 17 U/L (5-34); Alkaline Phosphatase 172 U/L (40-150); Anion Gap 11 mmol/L (10-20); BUN (Urea Nitrogen) 22 mg/dL (8.4-25.7); Bilirubin, Total 0.5 mg/dL (0.2-1.2); Calc. Creatinine Clearance 69 mL/min (70-130); Calcium 8.4 mg/dL (7.8-10.44); Carbon Dioxide 25 mmol/L (23-31); Chloride 111 mmol/L (98-107); Cholesterol 80 mg/dl (< 200 Desired); Estimated GFR-MDRD 75; Globulin 2.8 g/dL (2.4-3.5); LDL Cholesterol, Calculated 44 mg/dL; Protein, Total 5.3 g/dL (5.8-8.1)
[2016-12-30] MEDS: Mometasone/Formoterol 120 PUFF INHALER INH SCH ×2 (07:01→20:12)
[2016-12-30] MEDS ORDERED: Furosemide 40 MG TAB PO SCH (07:30)
--- NOTE | 2016-12-30 08:19 | ULT ---
GALLBLADDER ULTRASOUND: HISTORY: A 76-year-old male with abnormal LFTs. FINDINGS: There is a right pleural effusion. Liver echogenicity is coarse. Multiple liver cysts are seen up to approximately 2.2 x 2.7 cm with some septation. The gallbladder is very markedly abnormal with v queta severe gallbladder wall thickening with some extensive heterogeneous cystic changes or hypodensi ty within the gallbladder wall concerning for extensive gallbladder wall edema. No definite gallsto dipak. Findings are certainly concerning for acalculous cholecystitis. Correlation with followup nuc lear medicine hepatobiliary scan should be considered. Common bile duct 0.6 cm. Visualized pancrea s and right kidney are unremarkable. IMPRESSION: Very markedly abnormal gallbladder with severe irregular gallbladder wall thickening with some nodul ar cystic or fluid changes within the gallbladder wall concerning for the possibility of extensive g allbladder wall edema or even underlying gallbladder wall malignancy. Multiple liver cysts. Right pleural effusion. Consider followup nuclear medicine hepatobiliary scan and possibly abdomen CT sca n for further assessment of the abnormal changes within the gallbladder. POS: [facility]
[2016-12-30] MEDS ORDERED: Digoxin 0.125 MG TAB PO SCH (09:00)
[2016-12-30] MEDS: cefTRIAXone\\ROCEPHIN 2 GM, Admixture Fee 1 EACH in Sodium Chloride 0.9% 100 ML IVPB SCH (09:55)
--- NOTE | 2016-12-30 10:25 | PDOC.PN ---
- Subjective Encounter Start Date: 12/30/16 Encounter Start Time: 07:00 -: old records requested/rev pt remains hypoxic on room air, not feeling good, has vague abdominal pain, no fever - Objective Resuscitation Status: Resuscitation Status FULL:Full Resuscitation MAR Reviewed: Yes Vital Signs & Weight: Vital Signs (12 hours) Temp Pulse Resp BP Pulse Ox 12/30/16 08:00 98.9 F 99 28 H 12/30/16 07:25 98.9 F 99 28 H 111/77 99 12/30/16 07:01 99 18 97 12/30/16 03:00 98.8 F 87 22 H 112/72 96 12/29/16 23:13 97.9 F 84 20 118/72 96 Weight Weight 164 lb 6.4 oz I&O: 12/29/16 12/30/16 12/31/16 06:59 06:59 06:59 Intake Total 480 Output Total 200 Balance 280 Result Diagrams: 12/30/16 05:11 12/30/16 05:11 Radiology Reviewed by me: Yes (us abdomen) EKG Reviewed by me: Yes (afib) Phys Exam - Physical Examination Constitutional: NAD HEENT: PERRLA, moist MMs, sclera anicteric Neck: no JVD, supple Respiratory: no wheezing, no rales, no rhonchi Cardiovascular: no significant murmur, irregular Gastrointestinal: soft, no distention, positive bowel sounds vague discomfort RUQ Musculoskeletal: no edema, pulses present Neurological: non-focal, normal sensation Lymphatic: no nodes Psychiatric: normal affect, A&O x 3 Skin: no rash, normal turgor Dx/Plan (1) Acute respiratory failure with hypoxia Code(s): J96.01 - ACUTE RESPIRATORY FAILURE WITH HYPOXIA Status: Acute (2) Acute cholecystitis Code(s): K81.0 - ACUTE CHOLECYSTITIS Status: Acute (3) Abnormal LFTs Code(s): R79.89 - OTHER SPECIFIED ABNORMAL FINDINGS OF BLOOD CHEMISTRY Status : Acute (4) Demand ischemia Code(s): I24.8 - OTHER FORMS OF ACUTE ISCHEMIC HEART DISEASE Status: Acute (5) Palpitation Code(s): R00.2 - PALPITATIONS Status: Acute (6) Warfarin-induced coagulopathy Code(s): D68.9 - COAGULATION DEFECT, UNSPECIFIED; T45.515A - ADVERSE EFFECT OF ANTICOAGULANTS, INITIAL ENCOUNTER Status: Acute (7) Atrial fibrillation Code(s): I48.91 - UNSPECIFIED ATRIAL FIBRILLATION Status: Chronic (8) CAD (coronary artery disease) Code(s): I25.10 - ATHSCL HEART DISEASE OF [place] CORONARY ARTERY W/O ANG PCTRS Status: Chronic (9) COPD (chronic obstructive pulmonary disease) Status: Chronic (10) Chronic systolic heart failure Code(s): I50.22 - CHRONIC SYSTOLIC (CONGESTIVE) HEART FAILURE Status: Chronic (11) Dyslipidemia Code(s): E78.5 - HYPERLIPIDEMIA, UNSPECIFIED Status: Chronic (12) Hypertension Code(s): I10 - ESSENTIAL (PRIMARY) HYPERTENSION Status: Chronic (13) Macrocytic anemia Code(s): D53.9 - NUTRITIONAL ANEMIA, UNSPECIFIED Status: Chronic (14) SCC (squamous cell carcinoma of lung) Code(s): C34.90 - MALIGNANT NEOPLASM OF UNSP PART OF UNSP BRONCHUS OR LUNG Status: Chronic - Plan cont current plan of care, continue antibiotics, respiratory therapy * will get CT abdomen with contrast * will start rocephin for choleycystitis * may need hida scan * will need surgery consult for abnormal gall bladder * echo pending * will change to inpt status * will repeat labs tomorrow * medication reviewed as below * symptomatic treatment. Review of Systems - Review of Systems Constitutional: negative: Fever, Chills, Sweats, Weakness, Malaise, Other Eyes: negative: Pain, Vision Change, Conjunctivae Inflammation, Eyelid Inflammation, Redness, Other ENT: negative: Ear Pain, Ear Discharge, Nose Pain, Nose Discharge, Nose Congestion, Mouth Pain, Mouth Swelling, Throat Pain, Throat Swelling, Other Respiratory: Cough, Shortness of Breath. negative: Dry, Hemoptysis, SOB with Excertion, Pleuritic Pain, Sputum, Wheezing Cardiovascular: Palpitations. negative: Chest Pain, Orthopnea, Paroxysmal Noc. Dyspnea, Edema, Light Headedness, Other Gastrointestinal: Nausea, Abdominal Pain. negative: Vomiting, Diarrhea, Constipation, Melena, Hematochezia, Other Genitourinary: negative: Dysuria, Frequency, Incontinence, Hematuria, Retention , Other Musculoskeletal: negative: Neck Pain, Shoulder Pain, Arm Pain, Back Pain, Hand Pain, Leg Pain, Foot Pain, Other Skin: negative: Rash, Lesions, Ricky, Bruising, Other - Medications/Allergies Allergies/Adverse Reactions: Allergies Allergy/AdvReac Type Severity Reaction Status Date / Time No Known Allergies Allergy Verified 12/01/16 15:34 Medications: Current Medications Acetaminophen (Tylenol) 650 mg PO Q4H PRN PRN Reason: Headache/Fever or Pain Last Admin: 12/29/16 19:37 Dose: 650 mg Hydrocodone Bitart/Acetaminophen ([place] 5/325) 1 tab PO Q4H PRN PRN Reason: Moderate Pain (4-6) Last Admin: 12/30/16 00:15 Dose: 1 tab Al Hydroxide/Mg Hydroxide (Maalox) 30 ml PO Q6H PRN PRN Reason: Heartburn or Indigestion Albuterol/Ipratropium (Duoneb) 3 ml NEB [id number] PRN PRN Reason: SOB &/or Wheezing Artificial Tears (Tears Naturale) 0 drop EA EYE PRN PRN PRN Reason: Dry Eyes Atorvastatin Calcium (Lipitor) 40 mg PO HS [facility] Last Admin: 12/29/16 20:39 Dose: 40 mg Benzonatate (Tessalon) 100 mg PO Q4H PRN PRN Reason: Cough Carvedilol (Coreg) 12.5 mg PO BID [facility] Last Admin: 12/29/16 20:39 Dose: 12.5 mg Clopidogrel Bisulfate (Plavix) 75 mg PO QAM [facility] Cyanocobalamin (Vitamin B-12) 1,000 mcg PO DAILY [facility] Digoxin (Lanoxin) 0.125 mg PO DAILY [facility] Diltiazem HCl (Cardizem Cd) 240 mg PO DAILY [facility] Folic Acid (Folvite) 1 mg PO DAILY [facility] Furosemide (Lasix) 40 mg PO DAILY [facility] Guaifenesin (Robitussin Sf) 200 mg PO Q4H PRN PRN Reason: Cough Ceftriaxone Sodium 2 gm/Miscellaneous Medication 1 each/ Sodium Chloride 100 mls @ 200 mls/hr IVPB Q24HR [facility] Last Admin: 12/30/16 09:55 Dose: 100 mls Isosorbide Mononitrate (Imdur) 60 mg PO DAILY [facility] Labetalol HCl (Normodyne) 20 mg SLOW IVP Q4H PRN PRN Reason: Systolic BP > 180 Lisinopril (Zestril) 10 mg PO DAILY [facility] Loperamide HCl (Imodium) 2 mg PO PRN PRN PRN Reason: Diarrhea/Loose Stools Loratadine (Claritin) 10 mg PO DAILYPRN PRN PRN Reason: Sinus Symptoms Magnesium Hydroxide (Milk Of Magnesium) 30 ml PO DAILYPRN PRN PRN Reason: Constipation Mineral Oil/White Petrolatum (Eucerin Cream) 0 gm TOP BIDPRN PRN PRN Reason: Dry Skin Mometasone Furoate/Formoterol Fumar (Dulera 200 Mcg/5 Mcg Inhaler) 2 puff INH BID-RT [facility] Last Admin: 12/30/16 07:01 Dose: 2 puff Nitroglycerin (Nitrostat) 0.4 mg PO Q5MIN PRN PRN Reason: Chest Pain Ondansetron HCl (Zofran Odt) 4 mg PO Q6H PRN PRN Reason: Nausea/Vomiting Ondansetron HCl (Zofran) 4 mg IVP Q6H PRN PRN Reason: Nausea/Vomiting Pantoprazole Sodium (Protonix) 40 mg PO 2100 [place] Phenol (Chloraseptic [place] 180 Ml Bot) 0 ml PO PRN PRN PRN Reason: Sore Throat Senna (Senokot) 2 tab PO HSPRN PRN PRN Reason: Constipation Sodium Chloride ([place] Nasal [place] 0.65%) 0 ml EA NARE QIDPRN PRN PRN Reason: Nasal Congestion Zolpidem Tartrate (Ambien) 5 mg PO HSPRN PRN PRN Reason: Insomnia
[2016-12-30] MEDS ORDERED: Digoxin 0.5 MG/2 ML AMP SLOW IVP SCH (12:00)
--- NOTE | 2016-12-30 12:50 | CT ---
CT OF THE ABDOMEN AND PELVIS WITH CONTRAST: COMPARISON: Gallbladder ultrasound 12/30/16. HISTORY: Abnormal gallbladder on ultrasound. Elevated LFTs and right upper quadrant abdominal pain. TECHNIQUE: Multiple contiguous axial images were obtained in a CT of the abdomen and pelvis with contrast. P.o . contrast was administered. Coronal reformats were performed. FINDINGS: The gallbladder is distended. Hyperdense material is seen within the gallbladder which may represen t sludge. There are stranding changes surrounding the gallbladder consistent with acute cholecystit is. No biliary dilatation is seen. The common bile duct is normal in caliber. No air is seen with in the gallbladder or biliary tree. Hypodensities are seen in the liver measuring up to 3.3 cm in size which represent cysts. There is a 1.7 cm cyst in the left kidney. Nonobstructing calcifications are seen in both kidneys measuring up to 10 mm in size. No free air or free fluid are seen in the abdomen or pelvis. The large and small bowel are normal i n caliber. Scattered diverticula are seen in the colon. No abdominal or pelvic lymphadenopathy are seen. Atherosclerotic calcifications are seen in the aorta. Degenerative changes are seen in the spine. There is a small right pleural effusion with adjacent a telectasis. There is a small filling defect in the left atrium which could represent a thrombus. IMPRESSION: 1. Highly abnormal appearance of the gallbladder is likely secondary to acute cholecystitis with si gnificant sludge and thickening of the bile within the gallbladder. A mass within the gallbladder i s also a possibility. 2. Hepatic cysts. 3. Bilateral nonobstructing renal calcifications. 4. Left renal cyst. 5. Diverticulosis. 6. Right pleural effusion with adjacent atelectasis. POS: [facility]
[2016-12-30] MEDS: Cyanocobalamin (Vitamin B-12) 1,000 MCG TAB PO SCH (13:40)
[2016-12-30] MEDS: Folic Acid 1 MG TAB PO SCH (13:40)
[2016-12-30] MEDS: Furosemide 40 MG TAB PO SCH (13:41)
[2016-12-30] MEDS: Lisinopril 10 MG TAB PO SCH (13:41)
[2016-12-30] MEDS: Clopidogrel Bisulfate 75 MG TAB PO SCH (13:41)
[2016-12-30] MEDS: Carvedilol 25 MG TAB PO SCH ×2 (13:41→20:53)
--- NOTE | 2016-12-30 15:53 | CON ---
DATE OF CONSULTATION: 12/30/2016 DATE OF ADMISSION: 12/29/2016 INDICATION FOR CONSULTATION: A 76-year-old gentleman who has acute cholecystitis, may need to under go acute cholecystectomy, also has atrial fibrillation which is chronic with rapid ventricular respo nse to the atrial fibrillation. HISTORY OF PRESENT ILLNESS: This is a very unfortunate 76-year-old gentleman who has had a long his tory of cardiac problems. He has undergone bypass surgery in the past and also in 2014 in July unde rwent angioplasty and stent placement to the left main coronary artery and also had angioplasty done to the left circumflex. We were unable to pass a stent at that time to the left circumflex. It wa s felt to have at least reasonable in result. He has been felt to be not a candidate for redo bypas s surgery and he does have significant coronary artery disease. He has also undergone AICD implant due to his left ventricular systolic failure. His last echocardiogram was in 07/2014, which showed an ejection fraction of 25%-30% unless this has been one performed later in the office setting. He did have marked left atrial dilatation at that time as well as mild to moderate mitral valve regurgi tation. He has undergone mitral valve repair in the past. He also has moderate to severe aortic va lve insufficiency, but there was no stenotic lesions noted. At this time, he presented again to the emergency room after he said he was not feeling well. He had abdominal pain, also noticed that he was feeling some short of breath and had a rapid ventricular response, rapid heart rate and heart ra te fasters sometimes slower, but he was doing much somewhat uncomfortable what appeared to be abdomi nal problem than a cardiac problem. When he arrived in the emergency room, he was noted to have abd ominal discomfort and also had atrial fibrillation. At this time, he continues to have episodes of chronic atrial fibrillation with heart rate anywhere between the 90s-130s. We were asked to see him for better rate control and also to see whether or not he will be a reasonable candidate to undergo surgery. 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 A PET scan did not show any metastatic disease and he is being treated otherwise by the Oncology Service as well as being followed by Dr. Basilio. Previousl y, on his last admission, he had gone into atrial fibrillation, but then converted to sinus rhythm o n occasion, but at this time appears to be in chronic atrial fibrillation with somewhat rapid ventri cular response. He does have pacing from his biventricular AICD at times, but appears to have atria l fibrillation. PAST MEDICAL HISTORY: Significant for the above noted past medical history. He has had mitral valv e repair, he has hyperlipidemia, chronic atrial fibrillation, hernia repair. He has had hypertensio n. He has had lung resection as noted above. ALLERGIES: None. MEDICATIONS: Include Coreg, Lipitor, diltiazem, Lasix, potassium, lisinopril, Coumadin, Imdur and P lavix. His INR was elevated at 4.1. Medications also at this time include Lipitor 40 mg, Tessalon Perles as needed, Coreg 12.5 mg b.i.d., Plavix 75 mg a day, vitamin B12, digoxin. I will give him d igoxin today. He was not previously on that medication. He is on diltiazem 180 mg, this was increa sed up to 240 mg. He is on Folvite, Lasix 40 mg a day. He also takes nebulizer, ipratropium/albute rol sulfate, Imdur 60 mg a day. He is on other p.r.n. medications, also lisinopril 10 mg a day. He is on DuoNeb, Protonix 40 mg, he is also on Zofran as needed and he has been placed on Rocephin 2 g ally q.24 hours. REVIEW OF SYSTEMS: The 12-point review of systems unremarkable except what is noted above and also to include some right ankle edema. He has been complaining of some shortness of breath at times and also rapid heart rate, but mainly abdominal discomfort. Otherwise, he had no significant new acute findings on 12-point review of systems. PHYSICAL EXAMINATION: GENERAL: Reveals an elderly gentleman. VITAL SIGNS: His blood pressure is 111/77, heart rate is anywhere between 90-130 with atrial fibril lation, respiratory rate is 28, O2 saturation is 99%. He is afebrile. HEENT: Reveals head to be normocephalic, atraumatic. Carotid pulses are present. I did not hear a ny significant bruits. CHEST: He has decreased breath sounds on the right side. He does have some left basilar rales. CARDIOVASCULAR: Exam reveals an irregular rhythm. He has a well healed surgical incision on the le ft infraclavicular area over the AICD site. I did not hear any heaves or thrills. He has a well he aled midline incision. He does have a hard calcified area at lower sternal area underneath the manu brium. There appeared to be some calcified hematoma or calcified scar from previous surgery from hi s bypass surgery earlier in 2007. ABDOMEN: He does have some right upper quadrant tenderness which is obviously very tender. He has some bowel sounds, which are present. I cannot palpate masses due to the abdominal tenderness. EXTREMITIES: Show some mild right lower extremity ankle edema. Pedal pulses are present. NEUROLOGIC: Neurologically, the patient appears to be intact. SKIN: Warm and dry at this time. IMAGING: His EKG shows atrial fibrillation with biventricular pacing. LABORATORY DATA: Shows INR 4.1. WBC is 11.5, hemoglobin 10.7, and platelet count was 288,000. His potassium is 4.2, creatinine is 0.98, alkaline phosphatase is 172. His BNP is elevated at 1151. C ardiac enzymes are also abnormal with troponin I originally was 0.027 increased up to 0.035 and next one is 0.033. This most likely is indicative of demand ischemia due to his abdominal discomfort, s hortness of breath and tachycardia. His repeat INR was 3.8. IMPRESSION: 1. Acute cholecystitis in a gentleman who most likely needs to undergo laparoscopic cholecystectomy . He should most likely be a reasonable candidate for this. He recently underwent a thoracic surge ry without any significant problems for lobectomy and he should do relatively well as long as he yadav s not have any acute congestive heart failure symptoms which he does seem to have some mild failure, but not overtly. His BNP is slightly elevated. 2. History of biventricular automatic implantable cardioverter defibrillator. This appears to be f unctioning normally 3. Chronic atrial fibrillation. He is over anticoagulated at this time, but now this is being summer ected once the INR is reasonable and most likely he can undergo surgery and then resume his oral ant icoagulation after surgery. As far as the rate is concerned with the atrial fibrillation, we will t ry to add digoxin IV to see if we can slow the heart rate. We can increase the diltiazem further, b ut would rather not increase this too far in a patient who already has systolic heart failure. We m ay need to increase the beta blockers as tolerated and see whether or not his pulmonary function or pulmonary status will allow that. 4. Severe chronic obstructive pulmonary disease. This will be managed by the primary service or by the acid conditioning worker. 5. Inoperable coronary artery disease. He has undergone angioplasty, stent placement and bypass sargent rgery in the past. He is not deemed to be a candidate for redo surgery. We will continue to follow this very carefully. He is denying any significant chest pain at this time, but mainly complains o f his abdominal discomfort associated with his acute cholecystitis. We are more than happy to ced robles to follow the patient with you at this time, but once his INR is stable, then he most likely yevgeniy l be a reasonable candidate to undergo his cholecystectomy. Obviously, he has at least mild to mode rate risk for undergoing any type of surgery, given his multiple comorbid problems.
[2016-12-30] MEDS ORDERED: ISOVUE-370 76%-LOCM 1 ML ONE (15:54)
[2016-12-30] MEDS: Digoxin 0.5 MG/2 ML AMP SLOW IVP SCH ×2 (17:43→23:24)
[2016-12-30] MEDS: Sodium Chloride 0.9% 10 ML ONE ×3 (17:44→23:25)
[2016-12-30] MEDS: Atorvastatin Calcium 40 MG TAB PO SCH (20:53)
[2016-12-31 06:07] LABS: #Eosinphils 0.1 thou/uL (0.0-0.7); #Lymphocytes 1.1 thou/uL (1.20-3.40); #Neutrophils 10.7 thou/uL (1.40-6.50); %Basophils 0.1 % (0.0-1.0); %Eosinophils 0.6 % (0.0-10.0); %Lymphocytes 8.1 % (21.0-51.0); %Monocytes 8.1 % (0.0-10.0); Hematocrit 32.2 % (42.0-52.0); Mean Platelet Volume 7.1 fL (7.4-10.4); Red Blood Cell (RBC) Count 3.18 mill/uL (4.70-6.10); White Blood Cell (WBC) Count 12.9 thou/uL (4.8-10.8)
[2016-12-31 06:32] LABS: ALT (SGPT) 35 U/L (8-55); AST (SGOT) 20 U/L (5-34); Alkaline Phosphatase 150 U/L (40-150); Anion Gap 9 mmol/L (10-20); BUN (Urea Nitrogen) 15 mg/dL (8.4-25.7); Bilirubin, Total 0.7 mg/dL (0.2-1.2); Calc. Creatinine Clearance 71 mL/min (70-130); Calcium 8.3 mg/dL (7.8-10.44); Carbon Dioxide 27 mmol/L (23-31); Chloride 107 mmol/L (98-107); Estimated GFR-MDRD 75; Globulin 2.7 g/dL (2.4-3.5); Protein, Total 5.1 g/dL (5.8-8.1)
[2016-12-31] MEDS: Mometasone/Formoterol 120 PUFF INHALER INH SCH ×2 (06:57→19:51)
[2016-12-31 09:55] LABS: Prothrombin Time 29.8 SEC (12.0-14.7)
[2016-12-31 09:56] LABS: PTT 74.7 SEC (22.9-36.1)
[2016-12-31] MEDS ORDERED: Sodium Chloride 0.9% 10 ML ONE ×2 (09:56→18:03)
--- NOTE | 2016-12-31 10:00 | CON ---
DATE OF CONSULTATION: 12/31/2016 CHIEF COMPLAINT: Right upper quadrant abdominal pain. HISTORY OF PRESENT ILLNESS: The patient is a 76-year-old male, who just had a right lower lobe lobe ctomy for squamous cell carcinoma of the lung on December 04. He was discharged on the . He s aid when he got home he was still having a lot of rapid heart rate. He was discharged with chronic atrial fibrillation, on warfarin. He was found to be in atrial fibrillation with a rapid ventricula r response. He has not taken his other medications at home. PAST MEDICAL HISTORY: Significant for chronic atrial fibrillation, hypertension, squamous cell carc inoma of the lungs, severe COPD, hyperlipidemia, severe coronary artery disease. PAST SURGICAL HISTORY: He has had a CABG, mitral valve replacement, right lower lobectomy. He has a defibrillator. He had a cardiac catheterization with stent, hernia repair, and appendectomy. MEDICATIONS: Ventolin, Lipitor, Coreg, Plavix, Cartia, Lasix, [place], Coumadin, Imdur, lisinopril, m ultivitamins, and potassium. SOCIAL HISTORY: Former smoker, no alcohol. . FAMILY HISTORY: Heart disease. PHYSICAL EXAMINATION: VITAL SIGNS: Temperature 99.3, pulse 85, blood pressure 105/60. GENERAL: Elderly male, looks weak. HEENT: Unremarkable. LUNGS: Clear. Lungs are hyperresonant. HEART: Regular rate and rhythm. ABDOMEN: Very tender in the right upper quadrant. No palpable masses. LABORATORY AND X-RAY FINDINGS: His white count is 12.9. Electrolytes are fine. Yesterday's PT was 39 with INR of 3.8. He had a chest x-ray done that shows a small residual right pneumothorax. It is stable. He had a CT scan showing a distended gallbladder with stranding and sludge. Ultrasound showed very prominent wall thickening. Cardiology saw him and says to be very high risk cardiac jalloh. They really cannot do anything furth er for his heart, but they kind of cleared him, because he just tolerated the lobectomy fine. ASSESSMENT: Acute acalculous cholecystitis with coagulopathy secondary to Coumadin, residual pneumo thorax, and a high-risk surgical candidate. PLAN: In this scenario, I feel the best course of action would be to get his coags down and have a cholecystostomy tube placed to allow his gallbladder to cool off and then later, when his pneumothor ax is gone and he is healthier, we can come back and take his gallbladder out.
[2016-12-31] MEDS: Ondansetron HCl/PF 4 MG/2 ML Vial IVP PRN ×2 (10:22→18:08)
[2016-12-31] MEDS: Digoxin 0.25 MG TAB PO SCH (10:23)
[2016-12-31] MEDS: Carvedilol 25 MG TAB PO SCH ×2 (10:24→21:27)
[2016-12-31] MEDS: Lisinopril 10 MG TAB PO SCH (10:25)
[2016-12-31] MEDS: Cyanocobalamin (Vitamin B-12) 1,000 MCG TAB PO SCH (10:25)
[2016-12-31] MEDS: Furosemide 40 MG TAB PO SCH (10:25)
[2016-12-31] MEDS: Folic Acid 1 MG TAB PO SCH (10:25)
[2016-12-31] MEDS: Clopidogrel Bisulfate 75 MG TAB PO SCH (10:26)
[2016-12-31] MEDS: MEROPENEM 1 GM/50 ML 1 GM in Premix Bag 1 BAG IVPB SCH ×3 (11:42→21:25)
[2016-12-31] MEDS: cefTRIAXone\\ROCEPHIN 2 GM, Admixture Fee 1 EACH in Sodium Chloride 0.9% 100 ML IVPB SCH (12:12)
--- NOTE | 2016-12-31 13:38 | PDOC.PN ---
- Subjective Encounter Start Date: 12/31/16 Encounter Start Time: 11:10 Patient seen and examined. No new complaints. No overnight events - Objective MAR Reviewed: Yes Vital Signs & Weight: Vital Signs (12 hours) Temp Pulse Resp BP BP BP Pulse Ox 12/31/16 10:25 119/72 12/31/16 10:23 88 119/72 12/31/16 09:20 98.1 F 88 18 119/72 99 12/31/16 06:57 85 16 98 12/31/16 04:00 99.3 F 80 18 105/60 97 Weight Weight 167 lb 1.6 oz I&O: 12/30/16 12/31/16 01/01/17 06:59 06:59 06:59 Intake Total 1010 Balance 1010 Result Diagrams: 12/31/16 05:31 12/31/16 05:31 EKG Reviewed by me: Yes Phys Exam - Physical Examination Constitutional: NAD HEENT: PERRLA, moist MMs, sclera anicteric Neck: no JVD, supple Respiratory: no wheezing, no rales, no rhonchi Cardiovascular: no significant murmur, irregular Gastrointestinal: soft, no distention, positive bowel sounds RUQ tenderness Musculoskeletal: no edema, pulses present Neurological: non-focal, normal sensation Psychiatric: normal affect, A&O x 3 Skin: no rash, normal turgor Dx/Plan (1) Acute respiratory failure with hypoxia Code(s): J96.01 - ACUTE RESPIRATORY FAILURE WITH HYPOXIA Status: Acute (2) Acute cholecystitis Code(s): K81.0 - ACUTE CHOLECYSTITIS Status: Acute (3) Abnormal LFTs Code(s): R79.89 - OTHER SPECIFIED ABNORMAL FINDINGS OF BLOOD CHEMISTRY Status : Acute (4) Demand ischemia Code(s): I24.8 - OTHER FORMS OF ACUTE ISCHEMIC HEART DISEASE Status: Acute (5) Palpitation Code(s): R00.2 - PALPITATIONS Status: Acute (6) Warfarin-induced coagulopathy Code(s): D68.9 - COAGULATION DEFECT, UNSPECIFIED; T45.515A - ADVERSE EFFECT OF ANTICOAGULANTS, INITIAL ENCOUNTER Status: Acute (7) Atrial fibrillation Code(s): I48.91 - UNSPECIFIED ATRIAL FIBRILLATION Status: Chronic Qualifiers: Atrial fibrillation type: chronic Qualified Code(s): I48.2 - Chronic atrial fibrillation (8) CAD (coronary artery disease) Code(s): I25.10 - ATHSCL HEART DISEASE OF [place] CORONARY ARTERY W/O ANG PCTRS Status: Chronic (9) COPD (chronic obstructive pulmonary disease) Status: Chronic (10) Chronic systolic heart failure Code(s): I50.22 - CHRONIC SYSTOLIC (CONGESTIVE) HEART FAILURE Status: Chronic (11) Dyslipidemia Code(s): E78.5 - HYPERLIPIDEMIA, UNSPECIFIED Status: Chronic (12) Hypertension Code(s): I10 - ESSENTIAL (PRIMARY) HYPERTENSION Status: Chronic (13) Macrocytic anemia Code(s): D53.9 - NUTRITIONAL ANEMIA, UNSPECIFIED Status: Chronic (14) SCC (squamous cell carcinoma of lung) Code(s): C34.90 - MALIGNANT NEOPLASM OF UNSP PART OF UNSP BRONCHUS OR LUNG Status: Chronic - Plan cont current plan of care, continue antibiotics * as per surgeon, will need choleycystostomy tube placement * continue rocephin * medication reviewed as below * symptomatic treatment * cardiology recommendation noted * repeat labs tomorrow. Review of Systems - Review of Systems Eyes: negative: Pain, Vision Change, Conjunctivae Inflammation, Eyelid Inflammation, Redness, Other ENT: negative: Ear Pain, Ear Discharge, Nose Pain, Nose Discharge, Nose Congestion, Mouth Pain, Mouth Swelling, Throat Pain, Throat Swelling, Other Respiratory: negative: Cough, Dry, Shortness of Breath, Hemoptysis, SOB with Excertion, Pleuritic Pain, Sputum, Wheezing Cardiovascular: negative: Chest Pain, Palpitations, Orthopnea, Paroxysmal Noc. Dyspnea, Edema, Light Headedness, Other Gastrointestinal: Nausea. negative: Vomiting, Abdominal Pain, Diarrhea, Constipation, Melena, Hematochezia, Other Genitourinary: negative: Dysuria, Frequency, Incontinence, Hematuria, Retention , Other Musculoskeletal: negative: Neck Pain, Shoulder Pain, Arm Pain, Back Pain, Hand Pain, Leg Pain, Foot Pain, Other Skin: negative: Rash, Lesions, Ricky, Bruising, Other - Medications/Allergies Allergies/Adverse Reactions: Allergies Allergy/AdvReac Type Severity Reaction Status Date / Time No Known Allergies Allergy Verified 12/01/16 15:34 Medications: Current Medications Acetaminophen (Tylenol) 650 mg PO Q4H PRN PRN Reason: Headache/Fever or Pain Last Admin: 12/29/16 19:37 Dose: 650 mg Hydrocodone Bitart/Acetaminophen ([place] 5/325) 1 tab PO Q4H PRN PRN Reason: Moderate Pain (4-6) Last Admin: 12/30/16 17:40 Dose: 1 tab Al Hydroxide/Mg Hydroxide (Maalox) 30 ml PO Q6H PRN PRN Reason: Heartburn or Indigestion Albuterol/Ipratropium (Duoneb) 3 ml NEB Q4BV-MJ PRN PRN Reason: SOB &/or Wheezing Artificial Tears (Tears Naturale) 0 drop EA EYE PRN PRN PRN Reason: Dry Eyes Atorvastatin Calcium (Lipitor) 40 mg PO HS [facility] Last Admin: 12/30/16 20:53 Dose: 40 mg Benzonatate (Tessalon) 100 mg PO Q4H PRN PRN Reason: Cough Carvedilol (Coreg) 12.5 mg PO BID [facility] Last Admin: 12/31/16 10:24 Dose: 12.5 mg Clopidogrel Bisulfate (Plavix) 75 mg PO QAM [facility] Last Admin: 12/31/16 10:26 Dose: 75 mg Cyanocobalamin (Vitamin B-12) 1,000 mcg PO DAILY [facility] Last Admin: 12/31/16 10:25 Dose: 1,000 mcg Digoxin (Lanoxin) 0.25 mg PO QAM [facility] Last Admin: 12/31/16 10:23 Dose: 0.25 mg Diltiazem HCl (Cardizem Cd) 240 mg PO DAILY [facility] Last Admin: 12/31/16 10:23 Dose: 240 mg Folic Acid (Folvite) 1 mg PO DAILY [facility] Last Admin: 12/31/16 10:25 Dose: 1 mg Furosemide (Lasix) 40 mg PO DAILY [facility] Last Admin: 12/31/16 10:25 Dose: 40 mg Guaifenesin (Robitussin Sf) 200 mg PO Q4H PRN PRN Reason: Cough Ceftriaxone Sodium 2 gm/Miscellaneous Medication 1 each/ Sodium Chloride 100 mls @ 200 mls/hr IVPB Q24HR [facility] Last Admin: 12/31/16 12:12 Dose: 100 mls Meropenem 1 gm/ Device 50 mls @ 100 mls/hr IVPB 0200,1000,1800 [facility] Last Admin: 12/31/16 11:42 Dose: 50 mls Isosorbide Mononitrate (Imdur) 60 mg PO DAILY [facility] Last Admin: 12/31/16 10:25 Dose: 60 mg Labetalol HCl (Normodyne) 20 mg SLOW IVP Q4H PRN PRN Reason: Systolic BP > 180 Lisinopril (Zestril) 10 mg PO DAILY [facility] Last Admin: 12/31/16 10:25 Dose: 10 mg Loperamide HCl (Imodium) 2 mg PO PRN PRN PRN Reason: Diarrhea/Loose Stools Loratadine (Claritin) 10 mg PO DAILYPRN PRN PRN Reason: Sinus Symptoms Magnesium Hydroxide (Milk Of Magnesium) 30 ml PO DAILYPRN PRN PRN Reason: Constipation Mineral Oil/White Petrolatum (Eucerin Cream) 0 gm TOP BIDPRN PRN PRN Reason: Dry Skin Mometasone Furoate/Formoterol Fumar (Dulera 200 Mcg/5 Mcg Inhaler) 2 puff INH BID-RT [facility] Last Admin: 12/31/16 06:57 Dose: 2 puff Nitroglycerin (Nitrostat) 0.4 mg PO Q5MIN PRN PRN Reason: Chest Pain Ondansetron HCl (Zofran Odt) 4 mg PO Q6H PRN PRN Reason: Nausea/Vomiting Ondansetron HCl (Zofran) 4 mg IVP Q6H PRN PRN Reason: Nausea/Vomiting Last Admin: 12/31/16 10:22 Dose: 4 mg Pantoprazole Sodium (Protonix) 40 mg PO 2100 [facility] Last Admin: 12/30/16 20:53 Dose: 40 mg Phenol (Chloraseptic [place] 180 Ml Bot) 0 ml PO PRN PRN PRN Reason: Sore Throat Senna (Senokot) 2 tab PO HSPRN PRN PRN Reason: Constipation Sodium Chloride ([place] Nasal [place] 0.65%) 0 ml EA NARE QIDPRN PRN PRN Reason: Nasal Congestion Zolpidem Tartrate (Ambien) 5 mg PO HSPRN PRN PRN Reason: Insomnia
[2016-12-31] MEDS: HYDROcodone/Acetaminophen 5/325 mg Tablet PO PRN ×2 (14:44→14:47)
--- NOTE | 2016-12-31 15:05 | PDOC.CTH ---
<Gloria Gilmore - Last Filed: 12/31/16 14:59> Cardiology Progress Note - Subjective the pt was seen and examined. No overnight events. No cardiac complaints. - Objective Vital Signs Temp Pulse Resp BP BP BP Pulse Ox 12/31/16 10:25 119/72 12/31/16 10:23 88 119/72 12/31/16 09:20 98.1 F 88 18 119/72 99 12/31/16 06:57 85 16 98 12/31/16 04:00 99.3 F 80 18 105/60 97 Weight 167 lb 1.6 oz 12/30/16 12/31/16 01/01/17 06:59 06:59 06:59 Intake Total 1010 Balance 1010 - Physical Examination Neck: no JVD present Lungs: CTA Heart: other: (Irregular) Extremities: other: (No edemas) - Telemetry Telemetry Rhythm: Afib BiV paced - Labs Result Diagrams: 12/31/16 05:31 12/31/16 05:31 Troponin/CKMB CK-MB (CK-2) 2.1 ng/mL (0-6.6) 12/29/16 13:05 Troponin I 0.033 ng/mL (< 0.028) H 12/29/16 19:49 - Assessment/Plan 1. Acute cholecystitis - on IV antibiotics; choleycystostomy tube placement when INR become stable for surgery 2. Chronic Afib - Remain Afib with HR 60-70s with BiV paced; Coumadin is on hold at this moment 3. inoperable CAD - Hx of CABG and Stent in 2015; On BBlocker, PARKER, Statin, and Plavix; Plavix was held for the procedure and hx of stent in 11/2015 4. Chronic systolic heart failure - Stable; cont. monitor 5. HTN - stable with current medication 6. Lt Lobectomy due to hx of Squamous cell carcinoma of lung - Stable 7. Dyslipidemia - on Statin med 8. COPD - stable MAR reviewed Review of Systems - Review of Systems Constitutional: reports: no symptoms reported EENTM: reports: no symptoms reported Respiratory: reports: no symptoms reported Cardiac (ROS): reports: no symptoms reported ABD/GI: reports: no symptoms reported : reports: no symptoms reported Musculoskeletal: reports: no symptoms reported Skin: reports: no symptoms reported <Cortney Denny - Last Filed: 12/31/16 23:07> Cardiology Progress Note - Objective Vital Signs Temp Pulse Resp BP BP Pulse Ox 12/31/16 19:51 60 16 98 12/31/16 19:45 99.2 F 62 18 96/54 L 97 12/31/16 16:00 98.1 F 71 18 97/59 L 93 L 12/31/16 13:00 98.7 F 80 20 102/61 96 Weight 167 lb 1.6 oz 12/30/16 12/31/16 01/01/17 06:59 06:59 06:59 Intake Total 1010 1100 Balance 1010 1100 - Labs Result Diagrams: 12/31/16 05:31 12/31/16 05:31 Troponin/CKMB CK-MB (CK-2) 2.1 ng/mL (0-6.6) 12/29/16 13:05 Troponin I 0.033 ng/mL (< 0.028) H 12/29/16 19:49 - Assessment/Plan Pt. seen and eval. by me. I agree with the A/P by the MECHATRONICS ENGINEER. He still has tenderness to palpation in the RUQ.
[2016-12-31] MEDS: Atorvastatin Calcium 40 MG TAB PO SCH (21:27)
[2017-01-01] MEDS: HYDROcodone/Acetaminophen 5/325 mg Tablet PO PRN ×3 (01:59→14:15)
[2017-01-01 05:10] LABS: #Eosinphils 0.1 thou/uL (0.0-0.7); #Lymphocytes 0.7 thou/uL (1.20-3.40); #Monocytes 1.1 thou/uL (0.11-0.59); #Neutrophils 10.4 thou/uL (1.40-6.50); %Basophils 0.1 % (0.0-1.0); %Eosinophils 0.5 % (0.0-10.0); %Lymphocytes 5.4 % (21.0-51.0); %Monocytes 9.2 % (0.0-10.0); Hematocrit 32.6 % (42.0-52.0); Mean Platelet Volume 6.9 fL (7.4-10.4); Red Blood Cell (RBC) Count 3.21 mill/uL (4.70-6.10); White Blood Cell (WBC) Count 12.3 thou/uL (4.8-10.8)
[2017-01-01 05:14] LABS: PTT 69.9 SEC (22.9-36.1); Prothrombin Time 30.7 SEC (12.0-14.7)
[2017-01-01 05:28] LABS: Anion Gap 6 mmol/L (10-20); BUN (Urea Nitrogen) 14 mg/dL (8.4-25.7); Calc. Creatinine Clearance 71 mL/min (70-130); Calcium 8.3 mg/dL (7.8-10.44); Carbon Dioxide 30 mmol/L (23-31); Chloride 105 mmol/L (98-107); Estimated GFR-MDRD 76
[2017-01-01] MEDS: Mometasone/Formoterol 120 PUFF INHALER INH SCH ×2 (07:19→19:13)
[2017-01-01] MEDS: Ondansetron ODT 4 MG TAB PO PRN ×3 (09:38→20:17)
[2017-01-01] MEDS: Digoxin 0.25 MG TAB PO SCH (09:38)
[2017-01-01] MEDS: Carvedilol 25 MG TAB PO SCH ×2 (09:39→20:17)
[2017-01-01] MEDS: Folic Acid 1 MG TAB PO SCH (09:39)
[2017-01-01] MEDS: Lisinopril 10 MG TAB PO SCH (09:39)
[2017-01-01] MEDS: Furosemide 40 MG TAB PO SCH (09:40)
[2017-01-01] MEDS: Cyanocobalamin (Vitamin B-12) 1,000 MCG TAB PO SCH (09:40)
[2017-01-01] MEDS ORDERED: Phytonadione 10 MG in Sodium Chloride 0.9% 50 ML IVPB SCH (10:00)
[2017-01-01] MEDS: cefTRIAXone\\ROCEPHIN 2 GM, Admixture Fee 1 EACH in Sodium Chloride 0.9% 100 ML IVPB SCH (10:14)
[2017-01-01] MEDS: MEROPENEM 1 GM/50 ML 1 GM in Premix Bag 1 BAG IVPB SCH ×2 (11:23→17:32)
--- NOTE | 2017-01-01 14:05 | PRG ---
DATE OF SERVICE: 01/01/2017 SUBJECTIVE: Mr. Lorenzana is improving. He recently was admitted for cholecystitis. No chest pain or pressure noted. He continues to complain of right upper quadrant pain. OBJECTIVE: VITAL SIGNS: Blood pressure 93/61, pulse 69 and temperature 97.8. LUNGS: Clear to auscultation. HEART: Irregular, irregular. ABDOMEN: Soft, nontender and nondistended. EXTREMITIES: No edema. PERTINENT LABORATORY DATA: Hemoglobin 10.2. Creatinine 0.96. Peak troponin 0.033. BNP 1151. IMPRESSION: 1. Acute on chronic systolic heart failure. 2. Coronary artery disease. 3. Status post bypass surgery. 4. Status post stent placement. 5. Preoperative clearance. 6. Cholecystitis. RECOMMENDATIONS: From a CV standpoint, we will clear Mr. Lorenzana for surgery. He will have a drain f ollowed by a cholecystectomy. He recently underwent CV Surgery without issues. We will wait until his INR drops below a reasonable level, which will be dictated by the General surgeon.
--- NOTE | 2017-01-01 14:06 | PDOC.PN ---
- Subjective Encounter Start Date: 01/01/17 Encounter Start Time: 11:00 Patient seen and examined. No new complaints. No overnight events - Objective MAR Reviewed: Yes Vital Signs & Weight: Vital Signs (12 hours) Temp Pulse Resp BP BP Pulse Ox 01/01/17 12:07 97.8 F 69 18 93/51 L 97 01/01/17 09:38 82 129/69 01/01/17 09:05 98.9 F 18 95 01/01/17 08:05 98.9 F 82 18 01/01/17 04:00 98.8 F 75 18 103/56 L 97 01/01/17 03:20 98 Weight Weight 166 lb 8 oz I&O: 12/31/16 01/01/17 01/02/17 06:59 06:59 06:59 Intake Total 1010 1510 Balance 1010 1510 Result Diagrams: 01/01/17 04:48 01/01/17 04:48 EKG Reviewed by me: Yes (afib) Phys Exam - Physical Examination Constitutional: NAD HEENT: PERRLA, moist MMs, sclera anicteric Neck: no JVD, supple Respiratory: no wheezing, no rales, no rhonchi Cardiovascular: no significant murmur, irregular Gastrointestinal: soft, non-tender, no distention, positive bowel sounds Musculoskeletal: no edema, pulses present Neurological: non-focal Lymphatic: no nodes Psychiatric: normal affect Skin: no rash, normal turgor Dx/Plan (1) Acute respiratory failure with hypoxia Code(s): J96.01 - ACUTE RESPIRATORY FAILURE WITH HYPOXIA Status: Acute (2) Acute cholecystitis Code(s): K81.0 - ACUTE CHOLECYSTITIS Status: Acute (3) Abnormal LFTs Code(s): R79.89 - OTHER SPECIFIED ABNORMAL FINDINGS OF BLOOD CHEMISTRY Status : Acute (4) Demand ischemia Code(s): I24.8 - OTHER FORMS OF ACUTE ISCHEMIC HEART DISEASE Status: Acute (5) Palpitation Code(s): R00.2 - PALPITATIONS Status: Acute (6) Warfarin-induced coagulopathy Code(s): D68.9 - COAGULATION DEFECT, UNSPECIFIED; T45.515A - ADVERSE EFFECT OF ANTICOAGULANTS, INITIAL ENCOUNTER Status: Acute (7) Atrial fibrillation Code(s): I48.91 - UNSPECIFIED ATRIAL FIBRILLATION Status: Chronic Qualifiers: Atrial fibrillation type: chronic Qualified Code(s): I48.2 - Chronic atrial fibrillation (8) CAD (coronary artery disease) Code(s): I25.10 - ATHSCL HEART DISEASE OF [place] CORONARY ARTERY W/O ANG PCTRS Status: Chronic (9) COPD (chronic obstructive pulmonary disease) Status: Chronic (10) Chronic systolic heart failure Code(s): I50.22 - CHRONIC SYSTOLIC (CONGESTIVE) HEART FAILURE Status: Chronic (11) Dyslipidemia Code(s): E78.5 - HYPERLIPIDEMIA, UNSPECIFIED Status: Chronic (12) Hypertension Code(s): I10 - ESSENTIAL (PRIMARY) HYPERTENSION Status: Chronic (13) Macrocytic anemia Code(s): D53.9 - NUTRITIONAL ANEMIA, UNSPECIFIED Status: Chronic (14) SCC (squamous cell carcinoma of lung) Code(s): C34.90 - MALIGNANT NEOPLASM OF UNSP PART OF UNSP BRONCHUS OR LUNG Status: Chronic - Plan cont current plan of care, continue antibiotics * once inr is appropriate, he will go for cholecystostomy tube placement * medication reviewed as below * symptomatic treatment * continue rocephin * doing well * now off oxygen * rate controlled. Review of Systems - Review of Systems ENT: negative: Ear Pain, Ear Discharge, Nose Pain, Nose Discharge, Nose Congestion, Mouth Pain, Mouth Swelling, Throat Pain, Throat Swelling, Other Respiratory: negative: Cough, Dry, Shortness of Breath, Hemoptysis, SOB with Excertion, Pleuritic Pain, Sputum, Wheezing Cardiovascular: negative: Chest Pain, Palpitations, Orthopnea, Paroxysmal Noc. Dyspnea, Edema, Light Headedness, Other Gastrointestinal: negative: Nausea, Vomiting, Abdominal Pain, Diarrhea, Constipation, Melena, Hematochezia, Other Genitourinary: negative: Dysuria, Frequency, Incontinence, Hematuria, Retention , Other Musculoskeletal: negative: Neck Pain, Shoulder Pain, Arm Pain, Back Pain, Hand Pain, Leg Pain, Foot Pain, Other - Medications/Allergies Allergies/Adverse Reactions: Allergies Allergy/AdvReac Type Severity Reaction Status Date / Time No Known Allergies Allergy Verified 12/01/16 15:34 Medications: Current Medications Acetaminophen (Tylenol) 650 mg PO Q4H PRN PRN Reason: Headache/Fever or Pain Last Admin: 12/29/16 19:37 Dose: 650 mg Hydrocodone Bitart/Acetaminophen ([place] 5/325) 1 tab PO Q4H PRN PRN Reason: Moderate Pain (4-6) Last Admin: 01/01/17 09:37 Dose: 1 tab Al Hydroxide/Mg Hydroxide (Maalox) 30 ml PO Q6H PRN PRN Reason: Heartburn or Indigestion Albuterol/Ipratropium (Duoneb) 3 ml NEB Q2NR-RE PRN PRN Reason: SOB &/or Wheezing Artificial Tears (Tears Naturale) 0 drop EA EYE PRN PRN PRN Reason: Dry Eyes Atorvastatin Calcium (Lipitor) 40 mg PO HS [facility] Last Admin: 12/31/16 21:27 Dose: 40 mg Benzonatate (Tessalon) 100 mg PO Q4H PRN PRN Reason: Cough Carvedilol (Coreg) 12.5 mg PO BID [facility] Last Admin: 01/01/17 09:39 Dose: 12.5 mg Cyanocobalamin (Vitamin B-12) 1,000 mcg PO DAILY [facility] Last Admin: 01/01/17 09:40 Dose: 1,000 mcg Digoxin (Lanoxin) 0.25 mg PO QAM [facility] Last Admin: 01/01/17 09:38 Dose: 0.25 mg Diltiazem HCl (Cardizem Cd) 240 mg PO DAILY [facility] Last Admin: 01/01/17 09:38 Dose: 240 mg Folic Acid (Folvite) 1 mg PO DAILY [facility] Last Admin: 01/01/17 09:39 Dose: 1 mg Furosemide (Lasix) 40 mg PO DAILY [facility] Last Admin: 01/01/17 09:40 Dose: 40 mg Guaifenesin (Robitussin Sf) 200 mg PO Q4H PRN PRN Reason: Cough Ceftriaxone Sodium 2 gm/Miscellaneous Medication 1 each/ Sodium Chloride 100 mls @ 200 mls/hr IVPB Q24HR [facility] Last Admin: 01/01/17 10:14 Dose: 100 mls Meropenem 1 gm/ Device 50 mls @ 100 mls/hr IVPB 0200,1000,1800 [facility] Last Admin: 01/01/17 11:23 Dose: 50 mls Isosorbide Mononitrate (Imdur) 60 mg PO DAILY [facility] Last Admin: 01/01/17 09:38 Dose: 60 mg Labetalol HCl (Normodyne) 20 mg SLOW IVP Q4H PRN PRN Reason: Systolic BP > 180 Lisinopril (Zestril) 10 mg PO DAILY [facility] Last Admin: 01/01/17 09:39 Dose: 10 mg Loperamide HCl (Imodium) 2 mg PO PRN PRN PRN Reason: Diarrhea/Loose Stools Loratadine (Claritin) 10 mg PO DAILYPRN PRN PRN Reason: Sinus Symptoms Magnesium Hydroxide (Milk Of Magnesium) 30 ml PO DAILYPRN PRN PRN Reason: Constipation Mineral Oil/White Petrolatum (Eucerin Cream) 0 gm TOP BIDPRN PRN PRN Reason: Dry Skin Mometasone Furoate/Formoterol Fumar (Dulera 200 Mcg/5 Mcg Inhaler) 2 puff INH BID-RT [facility] Last Admin: 01/01/17 07:19 Dose: 2 puff Nitroglycerin (Nitrostat) 0.4 mg PO Q5MIN PRN PRN Reason: Chest Pain Ondansetron HCl (Zofran Odt) 4 mg PO Q6H PRN PRN Reason: Nausea/Vomiting Last Admin: 01/01/17 09:38 Dose: 4 mg Ondansetron HCl (Zofran) 4 mg IVP Q6H PRN PRN Reason: Nausea/Vomiting Last Admin: 12/31/16 18:08 Dose: 4 mg Pantoprazole Sodium (Protonix) 40 mg PO 2100 [facility] Last Admin: 12/31/16 21:26 Dose: 40 mg Phenol (Chloraseptic [place] 180 Ml Bot) 0 ml PO PRN PRN PRN Reason: Sore Throat Senna (Senokot) 2 tab PO HSPRN PRN PRN Reason: Constipation Sodium Chloride ([place] Nasal [place] 0.65%) 0 ml EA NARE QIDPRN PRN PRN Reason: Nasal Congestion Zolpidem Tartrate (Ambien) 5 mg PO HSPRN PRN PRN Reason: Insomnia
[2017-01-01 14:48] LABS: PTT 57.2 SEC (22.9-36.1)
[2017-01-01] MEDS: Atorvastatin Calcium 40 MG TAB PO SCH (20:17)
[2017-01-02] MEDS: MEROPENEM 1 GM/50 ML 1 GM in Premix Bag 1 BAG IVPB SCH ×3 (01:17→16:27)
[2017-01-02 05:12] LABS: #Eosinphils 0.1 thou/uL (0.0-0.7); #Lymphocytes 0.7 thou/uL (1.20-3.40); #Monocytes 1.2 thou/uL (0.11-0.59); #Neutrophils 9.8 thou/uL (1.40-6.50); %Basophils 0.2 % (0.0-1.0); %Eosinophils 0.8 % (0.0-10.0); %Lymphocytes 6.2 % (21.0-51.0); %Monocytes 10.1 % (0.0-10.0); Hematocrit 35.9 % (42.0-52.0); Mean Platelet Volume 6.9 fL (7.4-10.4); Red Blood Cell (RBC) Count 3.53 mill/uL (4.70-6.10); White Blood Cell (WBC) Count 11.8 thou/uL (4.8-10.8)
[2017-01-02 05:17] LABS: Prothrombin Time 16.8 SEC (12.0-14.7)
[2017-01-02 05:18] LABS: PTT 47.9 SEC (22.9-36.1)
[2017-01-02] MEDS: HYDROcodone/Acetaminophen 5/325 mg Tablet PO PRN ×3 (05:23→17:48)
[2017-01-02 05:36] LABS: Anion Gap 9 mmol/L (10-20); BUN (Urea Nitrogen) 12 mg/dL (8.4-25.7); Calc. Creatinine Clearance 70 mL/min (70-130); Calcium 8.6 mg/dL (7.8-10.44); Carbon Dioxide 31 mmol/L (23-31); Chloride 102 mmol/L (98-107); Estimated GFR-MDRD 75
[2017-01-02] MEDS: Ondansetron HCl/PF 4 MG/2 ML Vial IVP PRN ×2 (06:28→20:19)
[2017-01-02] MEDS: Mometasone/Formoterol 120 PUFF INHALER INH SCH ×2 (06:57→19:48)
--- NOTE | 2017-01-02 08:20 | PRG ---
DATE OF SERVICE: 01/02/2017 Mr. Lorenzana continues to complain of right upper quadrant pain. Mild shortness of breath noted. PHYSICAL EXAMINATION: VITAL SIGNS: Blood pressure 134/59, pulse 72, temperature 98.7. LUNGS: Rhonchi and rales bilaterally. CARDIAC: Irregular, irregular. ABDOMEN: Tender to the right upper quadrant. EXTREMITIES: No edema. IMPRESSION: 1. Severe coronary artery disease status post bypass surgery and recent stent placement. 2. Cholecystitis. 3. Ischemic cardiomyopathy status post ICD placement. RECOMMENDATIONS: 1. The patient is scheduled for gallbladder drain today. 2. Continue beta chase treatment, atorvastatin as prescribed.
[2017-01-02] MEDS: Digoxin 0.25 MG TAB PO SCH (10:31)
[2017-01-02] MEDS: Lisinopril 10 MG TAB PO SCH (10:33)
[2017-01-02] MEDS: Folic Acid 1 MG TAB PO SCH (10:34)
[2017-01-02] MEDS: Carvedilol 25 MG TAB PO SCH ×2 (10:34→20:19)
[2017-01-02] MEDS: Cyanocobalamin (Vitamin B-12) 1,000 MCG TAB PO SCH (10:35)
--- NOTE | 2017-01-02 11:09 | PDOC.PN ---
- Subjective Encounter Start Date: 01/02/17 Encounter Start Time: 07:00 Patient seen and examined. has nausea and abdominal pain. No overnight events - Objective MAR Reviewed: Yes Vital Signs & Weight: Vital Signs (12 hours) Temp Pulse Resp BP BP Pulse Ox 01/02/17 10:33 134/79 01/02/17 10:31 81 01/02/17 08:00 98.7 F 72 15 99 01/02/17 06:57 72 15 92 L 01/02/17 04:00 98.7 F 83 18 134/59 L 97 01/02/17 02:19 98 Weight Weight 165 lb 3.2 oz I&O: 01/01/17 01/02/17 01/03/17 06:59 06:59 06:59 Intake Total 1510 1340 0 Balance 1510 1340 0 Result Diagrams: 01/02/17 04:47 01/02/17 04:47 Phys Exam - Physical Examination Constitutional: NAD HEENT: PERRLA, moist MMs, sclera anicteric Neck: no JVD, supple Respiratory: no wheezing, no rales, no rhonchi Cardiovascular: RRR, no significant murmur, no rub Gastrointestinal: soft, non-tender, no distention, positive bowel sounds Musculoskeletal: no edema, pulses present Neurological: non-focal, normal sensation Lymphatic: no nodes Psychiatric: normal affect Skin: no rash, normal turgor Dx/Plan (1) Acute respiratory failure with hypoxia Code(s): J96.01 - ACUTE RESPIRATORY FAILURE WITH HYPOXIA Status: Acute (2) Acute cholecystitis Code(s): K81.0 - ACUTE CHOLECYSTITIS Status: Acute (3) Abnormal LFTs Code(s): R79.89 - OTHER SPECIFIED ABNORMAL FINDINGS OF BLOOD CHEMISTRY Status : Acute (4) Demand ischemia Code(s): I24.8 - OTHER FORMS OF ACUTE ISCHEMIC HEART DISEASE Status: Acute (5) Palpitation Code(s): R00.2 - PALPITATIONS Status: Acute (6) Warfarin-induced coagulopathy Code(s): D68.9 - COAGULATION DEFECT, UNSPECIFIED; T45.515A - ADVERSE EFFECT OF ANTICOAGULANTS, INITIAL ENCOUNTER Status: Acute (7) Atrial fibrillation Code(s): I48.91 - UNSPECIFIED ATRIAL FIBRILLATION Status: Chronic Qualifiers: Atrial fibrillation type: chronic Qualified Code(s): I48.2 - Chronic atrial fibrillation (8) CAD (coronary artery disease) Code(s): I25.10 - ATHSCL HEART DISEASE OF [place] CORONARY ARTERY W/O ANG PCTRS Status: Chronic (9) COPD (chronic obstructive pulmonary disease) Status: Chronic (10) Chronic systolic heart failure Code(s): I50.22 - CHRONIC SYSTOLIC (CONGESTIVE) HEART FAILURE Status: Chronic (11) Dyslipidemia Code(s): E78.5 - HYPERLIPIDEMIA, UNSPECIFIED Status: Chronic (12) Hypertension Code(s): I10 - ESSENTIAL (PRIMARY) HYPERTENSION Status: Chronic (13) Macrocytic anemia Code(s): D53.9 - NUTRITIONAL ANEMIA, UNSPECIFIED Status: Chronic (14) SCC (squamous cell carcinoma of lung) Code(s): C34.90 - MALIGNANT NEOPLASM OF UNSP PART OF UNSP BRONCHUS OR LUNG Status: Chronic (15) NSVT (nonsustained ventricular tachycardia) Code(s): I47.2 - VENTRICULAR TACHYCARDIA Status: Acute - Plan cont current plan of care, continue antibiotics * today INR is appropriate for gall bladder drain * continue IV antibiotics * repeat labs tomorrow * check magnesium level as he had NSVT * medication reviewed as below * symptomatic treatment. Review of Systems - Review of Systems Constitutional: Weakness. negative: Fever, Chills, Sweats, Malaise, Other Respiratory: negative: Cough, Dry, Shortness of Breath, Hemoptysis, SOB with Excertion, Pleuritic Pain, Sputum, Wheezing Cardiovascular: negative: Chest Pain, Palpitations, Orthopnea, Paroxysmal Noc. Dyspnea, Edema, Light Headedness, Other Gastrointestinal: Nausea, Abdominal Pain. negative: Vomiting, Diarrhea, Constipation, Melena, Hematochezia, Other Genitourinary: negative: Dysuria, Frequency, Incontinence, Hematuria, Retention , Other Musculoskeletal: negative: Neck Pain, Shoulder Pain, Arm Pain, Back Pain, Hand Pain, Leg Pain, Foot Pain, Other Skin: negative: Rash, Lesions, Ricky, Bruising, Other - Medications/Allergies Allergies/Adverse Reactions: Allergies Allergy/AdvReac Type Severity Reaction Status Date / Time No Known Allergies Allergy Verified 12/01/16 15:34 Medications: Current Medications Acetaminophen (Tylenol) 650 mg PO Q4H PRN PRN Reason: Headache/Fever or Pain Last Admin: 12/29/16 19:37 Dose: 650 mg Hydrocodone Bitart/Acetaminophen ([place] 5/325) 1 tab PO Q4H PRN PRN Reason: Moderate Pain (4-6) Last Admin: 01/02/17 05:23 Dose: 1 tab Al Hydroxide/Mg Hydroxide (Maalox) 30 ml PO Q6H PRN PRN Reason: Heartburn or Indigestion Albuterol/Ipratropium (Duoneb) 3 ml NEB [id number] PRN PRN Reason: SOB &/or Wheezing Artificial Tears (Tears Naturale) 0 drop EA EYE PRN PRN PRN Reason: Dry Eyes Atorvastatin Calcium (Lipitor) 40 mg PO HS [facility] Last Admin: 01/01/17 20:17 Dose: 40 mg Benzonatate (Tessalon) 100 mg PO Q4H PRN PRN Reason: Cough Carvedilol (Coreg) 12.5 mg PO BID [facility] Last Admin: 01/02/17 10:34 Dose: 12.5 mg Cyanocobalamin (Vitamin B-12) 1,000 mcg PO DAILY [facility] Last Admin: 01/02/17 10:35 Dose: 1,000 mcg Digoxin (Lanoxin) 0.25 mg PO QAM [facility] Last Admin: 01/02/17 10:31 Dose: 0.25 mg Diltiazem HCl (Cardizem Cd) 240 mg PO DAILY [facility] Last Admin: 01/02/17 10:31 Dose: 240 mg Folic Acid (Folvite) 1 mg PO DAILY [facility] Last Admin: 01/02/17 10:34 Dose: 1 mg Furosemide (Lasix) 40 mg PO DAILY [facility] Last Admin: 01/01/17 09:40 Dose: 40 mg Guaifenesin (Robitussin Sf) 200 mg PO Q4H PRN PRN Reason: Cough Ceftriaxone Sodium 2 gm/Miscellaneous Medication 1 each/ Sodium Chloride 100 mls @ 200 mls/hr IVPB Q24HR [facility] Last Admin: 01/01/17 10:14 Dose: 100 mls Meropenem 1 gm/ Device 50 mls @ 100 mls/hr IVPB 0200,1000,1800 [facility] Last Admin: 01/02/17 10:35 Dose: 50 mls Isosorbide Mononitrate (Imdur) 60 mg PO DAILY [facility] Last Admin: 01/02/17 10:34 Dose: 60 mg Labetalol HCl (Normodyne) 20 mg SLOW IVP Q4H PRN PRN Reason: Systolic BP > 180 Lisinopril (Zestril) 10 mg PO DAILY [facility] Last Admin: 01/02/17 10:33 Dose: 10 mg Loperamide HCl (Imodium) 2 mg PO PRN PRN PRN Reason: Diarrhea/Loose Stools Loratadine (Claritin) 10 mg PO DAILYPRN PRN PRN Reason: Sinus Symptoms Magnesium Hydroxide (Milk Of Magnesium) 30 ml PO DAILYPRN PRN PRN Reason: Constipation Mineral Oil/White Petrolatum (Eucerin Cream) 0 gm TOP BIDPRN PRN PRN Reason: Dry Skin Mometasone Furoate/Formoterol Fumar (Dulera 200 Mcg/5 Mcg Inhaler) 2 puff INH BID-RT [facility] Last Admin: 01/02/17 06:57 Dose: 2 puff Nitroglycerin (Nitrostat) 0.4 mg PO Q5MIN PRN PRN Reason: Chest Pain Ondansetron HCl (Zofran Odt) 4 mg PO Q6H PRN PRN Reason: Nausea/Vomiting Last Admin: 01/01/17 20:17 Dose: 4 mg Ondansetron HCl (Zofran) 4 mg IVP Q6H PRN PRN Reason: Nausea/Vomiting Last Admin: 01/02/17 06:28 Dose: 4 mg Pantoprazole Sodium (Protonix) 40 mg PO 2100 [facility] Last Admin: 01/01/17 20:17 Dose: 40 mg Phenol (Chloraseptic [place] 180 Ml Bot) 0 ml PO PRN PRN PRN Reason: Sore Throat Senna (Senokot) 2 tab PO HSPRN PRN PRN Reason: Constipation Sodium Chloride ([place] Nasal [place] 0.65%) 0 ml EA NARE QIDPRN PRN PRN Reason: Nasal Congestion Zolpidem Tartrate (Ambien) 5 mg PO HSPRN PRN PRN Reason: Insomnia
[2017-01-02] MEDS: Furosemide 40 MG TAB PO SCH (13:29)
[2017-01-02] MEDS: cefTRIAXone\\ROCEPHIN 2 GM, Admixture Fee 1 EACH in Sodium Chloride 0.9% 100 ML IVPB SCH (14:00)
[2017-01-02] MEDS ORDERED: Enoxaparin Sodium 100 MG/ML SYRINGE SC SCH (16:00)
[2017-01-02] MEDS ORDERED: Enoxaparin Sodium 80 MG/0.8 ML SYRINGE SC SCH (16:00)
--- NOTE | 2017-01-02 16:55 | CT ---
EXAM: CT GUIDED PERCUTANEOUS CHOLECYSTOSTOMY TUBE PLACEMENT 01/02/17 COMPARISON: 12/30/16. HISTORY: Cholecystitis. Abnormal appearing gallbladder. FINDINGS: Technically successful placement of a 6 [place] pigtail catheter in the lumen of the gallbladder. Luis pite aspiration and multiple attempts of flushing with saline, only a small amount of clot and blood tinged fluid was aspirated. Bile was not aspirated. The catheter position is within the lumen. Post aspiration images demonstrate air in the lumen of the gallbladder. Preprocedure image demonstrates central subtle hyperdensity with more isodense appearance along the periphery of the lumen of the ga llbladder. Possibility of blood products within the lumen of the gallbladder is raised. The perichol ecystic region does have stranding and fluid, similar to the prior exam. Preprocedure exam demonstrates a right sided pleural effusion with atelectasis and pneumothorax. TECHNIQUE: Consent obtained for a percutaneous cholecystostomy catheter placement. Given the patient was on thr ee different anticoagulation medicines, a 6 [place] catheter was felt to be most appropriate. The pat ient was placed in a prone position on the CT gantry. Patient was scanned. The appropriate level is identified. The patient was prepped and draped in the sterile fashion. 1% lidocaine, buffered with sodium bicarbonate used for local anesthesia. Under CT guidance, a 17 gauge metallic trocar was plac ed into the gallbladder lumen. A 0.18 Amplatz wire was advanced through the trocar. A 6 [place] pigta il catheter was advanced over the wire. The pigtail was confirmed to be within the lumen of the gall bladder. Wire and metallic stiffener were removed. Catheter position was confirmed and the pigtail w as formed. Despite vigorous attempt at aspiration, bile was not aspirated. The patient was injected with 10 mL of sterile saline and aspirated. Blood tinged fluid and small fragments of clot were obta ined. About 2 to 3 mL of the sample was sent for evaluation. Catheter was secured to the patient. Th e patient tolerated the procedure well. No immediate or postprocedure complications. IMPRESSION: 1. Technically successful CT guided percutaneous catheter placement within the gallbladder. 2. Flush instructions were not placed. 3. Review of the CT from 12/30/16 demonstrates a filling defect in the left atrium suggesting a possible clot. Cardiac echo is recommended. 4. The results of the procedure as well as the left atrial findings were discussed with Dr. Brea duran. Dr. Torres was informed that flush orders were not placed at this time given that nothing was com ing out of the catheter except a small amount of blood tinged fluid. Dr. Torres is aware and will man age the catheter per his discretion. Code CR POS: [place]
[2017-01-02] MEDS: Morphine 4 MG/ML VIAL SLOW IVP PRN (17:23)
[2017-01-02] MEDS: Atorvastatin Calcium 40 MG TAB PO SCH (20:19)
[2017-01-02] MEDS ORDERED: Warfarin Sodium 5 MG TAB PO SCH (21:00)
[2017-01-03] MEDS: MEROPENEM 1 GM/50 ML 1 GM in Premix Bag 1 BAG IVPB SCH ×3 (01:16→17:09)
[2017-01-03 05:14] LABS: Prothrombin Time 15.6 SEC (12.0-14.7)
[2017-01-03] MEDS: Ondansetron HCl/PF 4 MG/2 ML Vial IVP PRN (05:20)
[2017-01-03] MEDS: Morphine 4 MG/ML VIAL SLOW IVP PRN (05:20)
[2017-01-03 05:59] VITALS: BMI 26.8
[2017-01-03] MEDS: Mometasone/Formoterol 120 PUFF INHALER INH SCH ×2 (07:23→18:32)
--- NOTE | 2017-01-03 08:23 | PDOC.PN ---
- Subjective Encounter Start Date: 01/03/17 Encounter Start Time: 08:22 Patient seen and examined. No new complaints. No overnight events - Objective MAR Reviewed: Yes Vital Signs & Weight: Vital Signs (12 hours) Temp Pulse Resp BP Pulse Ox 01/03/17 08:00 98.1 F 87 16 98 01/03/17 07:44 98.1 F 87 16 144/65 H 98 01/03/17 07:25 99 01/03/17 07:23 76 20 97 01/03/17 04:00 98.7 F 80 20 134/62 97 01/03/17 00:31 93 L Weight Weight 166 lb 4.8 oz I&O: 01/02/17 01/03/17 01/04/17 06:59 06:59 06:59 Intake Total 1340 1310 Balance 1340 1310 Result Diagrams: 01/02/17 21:06 01/02/17 04:47 EKG Reviewed by me: Yes (afib) Phys Exam - Physical Examination Constitutional: NAD HEENT: PERRLA, moist MMs, sclera anicteric Neck: no JVD, supple Respiratory: no wheezing, no rales, no rhonchi, clear to auscultation bilateral Cardiovascular: no significant murmur, irregular Gastrointestinal: soft, non-tender, no distention, positive bowel sounds Musculoskeletal: no edema, pulses present Neurological: non-focal, normal sensation Lymphatic: no nodes Psychiatric: normal affect, A&O x 3 Skin: no rash, normal turgor Dx/Plan (1) Acute respiratory failure with hypoxia Code(s): J96.01 - ACUTE RESPIRATORY FAILURE WITH HYPOXIA Status: Acute (2) Acute cholecystitis Code(s): K81.0 - ACUTE CHOLECYSTITIS Status: Acute Comment: s/p cholecystostomy (3) Abnormal LFTs Code(s): R79.89 - OTHER SPECIFIED ABNORMAL FINDINGS OF BLOOD CHEMISTRY Status : Acute (4) Demand ischemia Code(s): I24.8 - OTHER FORMS OF ACUTE ISCHEMIC HEART DISEASE Status: Acute (5) Palpitation Code(s): R00.2 - PALPITATIONS Status: Acute (6) Warfarin-induced coagulopathy Code(s): D68.9 - COAGULATION DEFECT, UNSPECIFIED; T45.515A - ADVERSE EFFECT OF ANTICOAGULANTS, INITIAL ENCOUNTER Status: Acute (7) Atrial fibrillation Code(s): I48.91 - UNSPECIFIED ATRIAL FIBRILLATION Status: Chronic Qualifiers: Atrial fibrillation type: chronic Qualified Code(s): I48.2 - Chronic atrial fibrillation (8) CAD (coronary artery disease) Code(s): I25.10 - ATHSCL HEART DISEASE OF [place] CORONARY ARTERY W/O ANG PCTRS Status: Chronic (9) COPD (chronic obstructive pulmonary disease) Status: Chronic (10) Chronic systolic heart failure Code(s): I50.22 - CHRONIC SYSTOLIC (CONGESTIVE) HEART FAILURE Status: Chronic (11) Dyslipidemia Code(s): E78.5 - HYPERLIPIDEMIA, UNSPECIFIED Status: Chronic (12) Hypertension Code(s): I10 - ESSENTIAL (PRIMARY) HYPERTENSION Status: Chronic (13) Macrocytic anemia Code(s): D53.9 - NUTRITIONAL ANEMIA, UNSPECIFIED Status: Chronic (14) SCC (squamous cell carcinoma of lung) Code(s): C34.90 - MALIGNANT NEOPLASM OF UNSP PART OF UNSP BRONCHUS OR LUNG Status: Chronic - Plan cont current plan of care, continue antibiotics, PT/OT, respiratory therapy * follow culture result from gall bladder * continue rocephin * medication reviewed as below * symptomatic treatment * pain control. * start lovenox until INR therapeutic * repeat labs tomorrow * will monitor Review of Systems - Review of Systems ENT: negative: Ear Pain, Ear Discharge, Nose Pain, Nose Discharge, Nose Congestion, Mouth Pain, Mouth Swelling, Throat Pain, Throat Swelling, Other Respiratory: negative: Cough, Dry, Shortness of Breath, Hemoptysis, SOB with Excertion, Pleuritic Pain, Sputum, Wheezing Cardiovascular: negative: Chest Pain, Palpitations, Orthopnea, Paroxysmal Noc. Dyspnea, Edema, Light [place]adedness, Other Gastrointestinal: negative: Nausea, Vomiting, Abdominal Pain, Diarrhea, Constipation, Melena, Hematochezia, Other Genitourinary: negative: Dysuria, Frequency, Incontinence, Hematuria, Retention , Other Musculoskeletal: negative: Neck Pain, Shoulder Pain, Arm Pain, Back Pain, Hand Pain, Leg Pain, Foot Pain, Other - Medications/Allergies Allergies/Adverse Reactions: Allergies Allergy/AdvReac Type Severity Reaction Status Date / Time No Known Allergies Allergy Verified 12/01/16 15:34 Medications: Current Medications Acetaminophen (Tylenol) 650 mg PO Q4H PRN PRN Reason: Headache/Fever or Pain Last Admin: 12/29/16 19:37 Dose: 650 mg Hydrocodone Bitart/Acetaminophen ([place] 5/325) 1 tab PO Q4H PRN PRN Reason: Moderate Pain (4-6) Last Admin: 01/02/17 17:48 Dose: 1 tab Al Hydroxide/Mg Hydroxide (Maalox) 30 ml PO Q6H PRN PRN Reason: Heartburn or Indigestion Albuterol/Ipratropium (Duoneb) 3 ml NEB [id number] PRN PRN Reason: SOB &/or Wheezing Artificial Tears (Tears Naturale) 0 drop EA EYE PRN PRN PRN Reason: Dry Eyes Atorvastatin Calcium (Lipitor) 40 mg PO HS [facility] Last Admin: 01/02/17 20:19 Dose: 40 mg Benzonatate (Tessalon) 100 mg PO Q4H PRN PRN Reason: Cough Carvedilol (Coreg) 12.5 mg PO BID [facility] Last Admin: 01/02/17 20:19 Dose: 12.5 mg Cyanocobalamin (Vitamin B-12) 1,000 mcg PO DAILY [facility] Last Admin: 01/02/17 10:35 Dose: 1,000 mcg Digoxin (Lanoxin) 0.25 mg PO QAM [facility] Last Admin: 01/02/17 10:31 Dose: 0.25 mg Diltiazem HCl (Cardizem Cd) 240 mg PO DAILY [facility] Last Admin: 01/02/17 10:31 Dose: 240 mg Folic Acid (Folvite) 1 mg PO DAILY [facility] Last Admin: 01/02/17 10:34 Dose: 1 mg Furosemide (Lasix) 40 mg PO DAILY [facility] Last Admin: 01/02/17 13:29 Dose: Not Given Guaifenesin (Robitussin Sf) 200 mg PO Q4H PRN PRN Reason: Cough Ceftriaxone Sodium 2 gm/Miscellaneous Medication 1 each/ Sodium Chloride 100 mls @ 200 mls/hr IVPB Q24HR [facility] Last Admin: 01/02/17 14:00 Dose: 100 mls Meropenem 1 gm/ Device 50 mls @ 100 mls/hr IVPB 0200,1000,1800 [facility] Last Admin: 01/03/17 01:16 Dose: 50 mls Isosorbide Mononitrate (Imdur) 60 mg PO DAILY [facility] Last Admin: 01/02/17 10:34 Dose: 60 mg Labetalol HCl (Normodyne) 20 mg SLOW IVP Q4H PRN PRN Reason: Systolic BP > 180 Lisinopril (Zestril) 10 mg PO DAILY [facility] Last Admin: 01/02/17 10:33 Dose: 10 mg Loperamide HCl (Imodium) 2 mg PO PRN PRN PRN Reason: Diarrhea/Loose Stools Loratadine (Claritin) 10 mg PO DAILYPRN PRN PRN Reason: Sinus Symptoms Magnesium Hydroxide (Milk Of Magnesium) 30 ml PO DAILYPRN PRN PRN Reason: Constipation Mineral Oil/White Petrolatum (Eucerin Cream) 0 gm TOP BIDPRN PRN PRN Reason: Dry Skin Mometasone Furoate/Formoterol Fumar (Dulera 200 Mcg/5 Mcg Inhaler) 2 puff INH BID-RT [facility] Last Admin: 01/03/17 07:23 Dose: 2 puff Morphine Sulfate (Morphine Sulfate) 2 mg SLOW IVP Q4H PRN PRN Reason: Severe Pain (7-10) Last Admin: 01/03/17 05:20 Dose: 2 mg Nitroglycerin (Nitrostat) 0.4 mg PO Q5MIN PRN PRN Reason: Chest Pain Ondansetron HCl (Zofran Odt) 4 mg PO Q6H PRN PRN Reason: Nausea/Vomiting Last Admin: 01/01/17 20:17 Dose: 4 mg Ondansetron HCl (Zofran) 4 mg IVP Q6H PRN PRN Reason: Nausea/Vomiting Last Admin: 01/03/17 05:20 Dose: 4 mg Pantoprazole Sodium (Protonix) 40 mg PO 2100 [facility] Last Admin: 01/02/17 20:19 Dose: 40 mg Phenol (Chloraseptic [place] 180 Ml Bot) 0 ml PO PRN PRN PRN Reason: Sore Throat Senna (Senokot) 2 tab PO HSPRN PRN PRN Reason: Constipation Sodium Chloride ([place] Nasal [place] 0.65%) 0 ml EA NARE QIDPRN PRN PRN Reason: Nasal Congestion Warfarin Sodium (Coumadin) 5 mg PO 1700 [place] Zolpidem Tartrate (Ambien) 5 mg PO HSPRN PRN PRN Reason: Insomnia
[2017-01-03] MEDS: cefTRIAXone\\ROCEPHIN 2 GM, Admixture Fee 1 EACH in Sodium Chloride 0.9% 100 ML IVPB SCH (08:55)
[2017-01-03] MEDS: Cyanocobalamin (Vitamin B-12) 1,000 MCG TAB PO SCH (08:56)
[2017-01-03] MEDS: Digoxin 0.25 MG TAB PO SCH (08:56)
[2017-01-03] MEDS: Furosemide 40 MG TAB PO SCH (08:56)
[2017-01-03] MEDS: Folic Acid 1 MG TAB PO SCH (08:56)
[2017-01-03] MEDS: Enoxaparin Sodium 80 MG/0.8 ML SYRINGE SC SCH ×2 (08:56→21:14)
[2017-01-03] MEDS: Lisinopril 10 MG TAB PO SCH (08:56)
[2017-01-03] MEDS: Carvedilol 25 MG TAB PO SCH ×2 (08:57→21:15)
[2017-01-03] MEDS ORDERED: Enoxaparin Sodium 60 MG/0.6 ML SYRINGE SC SCH (09:00)
--- NOTE | 2017-01-03 13:27 | PRG ---
DATE OF SERVICE: 01/03/2017 HISTORY OF PRESENT ILLNESS: Mr. Lorenzana had a recent drainage of his gallbladder. There was mainly a clot present. This was done under CT guidance. There was concern for a CT in his left atrial append age per Radiology. PHYSICAL EXAMINATION: VITAL SIGNS: Blood pressure 108/61, pulse 74, temperature 97.9. LUNGS: Rhonchi, rales bilaterally. CARDIAC: Irregular, irregular. ABDOMEN: Soft, nontender, nondistended. EXTREMITIES: No edema. PERTINENT LABS: Hemoglobin 10.5, creatinine 0.98. IMPRESSION: 1. Atrial fibrillation. 2. Coronary artery disease. 3. Status post bypass surgery and stent placement. 4. Cholecystectomy. RECOMMENDATIONS: Mr. Lorenzana appeared to have had a thrombus noted on CT scan. I initially felt to ne ed to proceed with NEERU although at this point I do not feel it would change his management. I again spoke with Dr. Eric Torres. Surgery will not perform for 1 month. At this point, I would therefore r ecommend restarting Coumadin therapy while covering him with Lovenox.
[2017-01-03] MEDS: Warfarin Sodium 5 MG TAB PO SCH (17:08)
[2017-01-03] MEDS: HYDROcodone/Acetaminophen 5/325 mg Tablet PO PRN (17:10)
[2017-01-03] MEDS: Atorvastatin Calcium 40 MG TAB PO SCH (21:14)
[2017-01-04] MEDS: HYDROcodone/Acetaminophen 5/325 mg Tablet PO PRN ×4 (01:32→19:29)
[2017-01-04] MEDS: MEROPENEM 1 GM/50 ML 1 GM in Premix Bag 1 BAG IVPB SCH ×3 (01:34→17:11)
[2017-01-04 04:58] LABS: #Eosinphils 0.1 thou/uL (0.0-0.7); #Lymphocytes 0.8 thou/uL (1.20-3.40); #Neutrophils 7.2 thou/uL (1.40-6.50); %Basophils 0.3 % (0.0-1.0); %Lymphocytes 8.9 % (21.0-51.0); %Monocytes 11.1 % (0.0-10.0); Mean Platelet Volume 6.9 fL (7.4-10.4); Red Blood Cell (RBC) Count 3.18 mill/uL (4.70-6.10); White Blood Cell (WBC) Count 9.1 thou/uL (4.8-10.8)
[2017-01-04 05:02] LABS: Prothrombin Time 16.7 SEC (12.0-14.7)
[2017-01-04 05:29] LABS: ALT (SGPT) 27 U/L (8-55); AST (SGOT) 20 U/L (5-34); Alkaline Phosphatase 297 U/L (40-150); Anion Gap 6 mmol/L (10-20); BUN (Urea Nitrogen) 14 mg/dL (8.4-25.7); Bilirubin, Total 0.4 mg/dL (0.2-1.2); Calc. Creatinine Clearance 82 mL/min (70-130); Calcium 8.5 mg/dL (7.8-10.44); Carbon Dioxide 34 mmol/L (23-31); Chloride 103 mmol/L (98-107); Estimated GFR-MDRD 90; Globulin 2.9 g/dL (2.4-3.5); Protein, Total 5.3 g/dL (5.8-8.1)
[2017-01-04] MEDS: Mometasone/Formoterol 120 PUFF INHALER INH SCH ×2 (07:09→19:04)
[2017-01-04] MEDS: cefTRIAXone\\ROCEPHIN 2 GM, Admixture Fee 1 EACH in Sodium Chloride 0.9% 100 ML IVPB SCH (08:27)
[2017-01-04] MEDS: Enoxaparin Sodium 80 MG/0.8 ML SYRINGE SC SCH ×2 (08:27→20:49)
[2017-01-04] MEDS: Furosemide 40 MG TAB PO SCH (08:27)
[2017-01-04] MEDS: Lisinopril 10 MG TAB PO SCH (08:27)
[2017-01-04] MEDS: Digoxin 0.25 MG TAB PO SCH (08:27)
[2017-01-04] MEDS: Cyanocobalamin (Vitamin B-12) 1,000 MCG TAB PO SCH (08:27)
[2017-01-04] MEDS: Carvedilol 25 MG TAB PO SCH ×2 (08:28→20:49)
[2017-01-04] MEDS: Folic Acid 1 MG TAB PO SCH (08:28)
[2017-01-04] MEDS: Ondansetron HCl/PF 4 MG/2 ML Vial IVP PRN (08:28)
--- NOTE | 2017-01-04 11:04 | PDOC.PN ---
- Subjective Encounter Start Date: 01/04/17 Encounter Start Time: 10:30 Subjective: MY BELLY HURTS - Objective MAR Reviewed: Yes Vital Signs & Weight: Vital Signs (12 hours) Temp Pulse Resp BP Pulse Ox 01/04/17 08:27 85 01/04/17 08:00 98.3 F 85 18 99 01/04/17 07:39 98.3 F 85 18 138/68 99 01/04/17 07:11 100 01/04/17 07:09 81 16 100 01/04/17 04:43 99 01/04/17 04:00 98.1 F 84 18 128/66 98 Weight Weight 163 lb 4.8 oz I&O: 01/03/17 01/04/17 01/05/17 06:59 06:59 06:59 Intake Total 1310 1400 Output Total 325 Balance 1310 1075 Result Diagrams: 01/04/17 04:45 01/04/17 04:45 Phys Exam - Physical Examination Constitutional: NAD HEENT: moist MMs, oral pharynx no lesions Neck: supple Respiratory: clear to auscultation bilateral Cardiovascular: RRR Gastrointestinal: soft TENDER RLQ Neurological: non-focal, moves all 4 limbs Psychiatric: normal affect, A&O x 3 Dx/Plan (1) Abnormal LFTs Code(s): R79.89 - OTHER SPECIFIED ABNORMAL FINDINGS OF BLOOD CHEMISTRY Status : Acute (2) Acute cholecystitis Code(s): K81.0 - ACUTE CHOLECYSTITIS Status: Acute Comment: s/p cholecystostomy (3) Acute respiratory failure with hypoxia Code(s): J96.01 - ACUTE RESPIRATORY FAILURE WITH HYPOXIA Status: Acute (4) Demand ischemia Code(s): I24.8 - OTHER FORMS OF ACUTE ISCHEMIC HEART DISEASE Status: Acute (5) NSVT (nonsustained ventricular tachycardia) Code(s): I47.2 - VENTRICULAR TACHYCARDIA Status: Acute (6) Palpitation Code(s): R00.2 - PALPITATIONS Status: Acute (7) Warfarin-induced coagulopathy Code(s): D68.9 - COAGULATION DEFECT, UNSPECIFIED; T45.515A - ADVERSE EFFECT OF ANTICOAGULANTS, INITIAL ENCOUNTER Status: Acute (8) Atrial fibrillation Code(s): I48.91 - UNSPECIFIED ATRIAL FIBRILLATION Status: Chronic Qualifiers: Atrial fibrillation type: chronic Qualified Code(s): I48.2 - Chronic atrial fibrillation (9) CAD (coronary artery disease) Code(s): I25.10 - ATHSCL HEART DISEASE OF [place] CORONARY ARTERY W/O ANG PCTRS Status: Chronic (10) COPD (chronic obstructive pulmonary disease) Status: Chronic (11) Hypertension Code(s): I10 - ESSENTIAL (PRIMARY) HYPERTENSION Status: Chronic (12) Macrocytic anemia Code(s): D53.9 - NUTRITIONAL ANEMIA, UNSPECIFIED Status: Chronic - Plan cont current plan of care, continue antibiotics, PT/OT, DVT proph w/lovenox * .
[2017-01-04] MEDS ORDERED: Digoxin 0.25 MG TAB PO SCH (13:26)
[2017-01-04] MEDS: Ondansetron ODT 4 MG TAB PO PRN (13:44)
[2017-01-04] MEDS ORDERED: Digoxin 0.125 MG TAB PO SCH (13:45)
--- NOTE | 2017-01-04 14:14 | PRG ---
DATE OF SERVICE: 01/04/2017 SUBJECTIVE: Mr. Lorenzana is continuing to complain of right-sided upper quadrant pain. No current ches t pain, pressure, shortness of breath or other associated symptoms that has changed from his baseline . OBJECTIVE: VITAL SIGNS: Blood pressure 108/58, pulse 64, and temperature 98.2. LUNGS: Rhonchi, rales bilaterally. CARDIAC: Regular rate and rhythm. ABDOMEN: Soft, nontender, nondistended. EXTREMITIES: No edema. IMPRESSION: 1. Acute on chronic systolic heart failure. 2. Cholecystitis. 3. Atrial fibrillation. RECOMMENDATIONS: Resume Lovenox and Coumadin to an INR of 2.0. Given a? thrombus in his left atrial appendage. We would recommend keeping him on Lovenox and Coumadin until his INR achieved 2.0 or gre ater. His rate and blood pressure appears to be well controlled. We would continue atorvastatin in addition to carvedilol and diltiazem. He has a history of asthma and beta-chase therapy is contrai ndicated. We will decrease digoxin to 0.125 q.a.m. Otherwise, I have no recommendations. Please re consult if needed.
--- NOTE | 2017-01-04 16:07 | CT ---
EXAM: CT GUIDED PERCUTANEOUS CHOLECYSTOSTOMY TUBE PLACEMENT 01/02/17 COMPARISON: 12/30/16. HISTORY: Cholecystitis. Abnormal appearing gallbladder. FINDINGS: Technically successful placement of a 6 [place] pigtail catheter in the lumen of the gallbladder. Desp ite aspiration and multiple attempts of flushing with saline, only a small amount of clot and blood t inged fluid was aspirated. Bile was not aspirated. The catheter position is within the lumen. Post as piration images demonstrate air in the lumen of the gallbladder. Preprocedure image demonstrates cent ral subtle hyperdensity with more isodense appearance along the periphery of the lumen of the gallbla dder. Possibility of blood products within the lumen of the gallbladder is raised. The pericholecysti c region does have stranding and fluid, similar to the prior exam. Preprocedure exam demonstrates a right sided pleural effusion with atelectasis and pneumothorax. TECHNIQUE: Consent obtained for a percutaneous cholecystostomy catheter placement. Given the patient was on thre e different anticoagulation medicines, a 6 [place] catheter was felt to be most appropriate. The patie nt was placed in a prone position on the CT gantry. Patient was scanned. The appropriate level is connor ntified. The patient was prepped and draped in the sterile fashion. 1% lidocaine, buffered with sodi um bicarbonate used for local anesthesia. Under CT guidance, a 17 gauge metallic trocar was placed in to the gallbladder lumen. A 0.18 Amplatz wire was advanced through the trocar. A 6 [place] pigtail cat heter was advanced over the wire. The pigtail was confirmed to be within the lumen of the gallbladder . Wire and metallic stiffener were removed. Catheter position was confirmed and the pigtail was forme d. Despite vigorous attempt at aspiration, bile was not aspirated. The patient was injected with 10 m L of sterile saline and aspirated. Blood tinged fluid and small fragments of clot were obtained. Abou t 2 to 3 mL of the sample was sent for evaluation. Catheter was secured to the patient. The patient t olerated the procedure well. No immediate or postprocedure complications. IMPRESSION: 1. Technically successful CT guided percutaneous catheter placement within the gallbladder. 2.Flush instructions were not placed. 3. Review of the CT from 12/30/16 demonstrates a filling defect in the left atrium suggesting a possible clot. Cardiac echo is recommended. 4. The results of the procedure as well as the left atrial findings were discussed with Dr. James solorzano. Dr. Torres was informed that flush orders were not placed at this time given that nothing was comin g out of the catheter except a small amount of blood tinged fluid. Dr. Torres is aware and will manage the catheter per his discretion. Code CR
[2017-01-04] MEDS: Warfarin Sodium 5 MG TAB PO SCH (17:11)
--- NOTE | 2017-01-04 17:21 | PDOC.EVN ---
Event Note - Event Note Event Note: SURGEONS WILL WAIT 2-3 WEEKS UNTIL CHOLECYSTECTOMY. PER CARDS WILL CONTINUE LOVENOX BRIDGE UNTIL INR IS 2 OR GREATER.
[2017-01-04] MEDS: Atorvastatin Calcium 40 MG TAB PO SCH (20:49)
[2017-01-05] MEDS: Ondansetron HCl/PF 4 MG/2 ML Vial IVP PRN ×2 (00:57→08:31)
[2017-01-05] MEDS: MEROPENEM 1 GM/50 ML 1 GM in Premix Bag 1 BAG IVPB SCH (01:00)
[2017-01-05 05:42] LABS: Prothrombin Time 20.7 SEC (12.0-14.7)
[2017-01-05] MEDS: cefTRIAXone\\ROCEPHIN 2 GM, Admixture Fee 1 EACH in Sodium Chloride 0.9% 100 ML IVPB SCH (08:26)
[2017-01-05] MEDS: Cyanocobalamin (Vitamin B-12) 1,000 MCG TAB PO SCH (08:27)
[2017-01-05] MEDS: Carvedilol 25 MG TAB PO SCH ×2 (08:28→19:54)
[2017-01-05] MEDS: Furosemide 40 MG TAB PO SCH (08:28)
[2017-01-05] MEDS: Folic Acid 1 MG TAB PO SCH (08:28)
[2017-01-05] MEDS: Digoxin 0.125 MG TAB PO SCH (08:28)
[2017-01-05] MEDS: Enoxaparin Sodium 80 MG/0.8 ML SYRINGE SC SCH ×2 (08:30→20:01)
[2017-01-05] MEDS: Lisinopril 10 MG TAB PO SCH (08:30)
[2017-01-05] MEDS: Mometasone/Formoterol 120 PUFF INHALER INH SCH ×2 (08:40→18:39)
[2017-01-05] MEDS: Meropenem 1 GM in Sodium Chloride 0.9% 100 ML IVPB SCH ×2 (10:03→17:17)
--- NOTE | 2017-01-05 11:19 | PDOC.PN ---
- Subjective Encounter Start Date: 01/05/17 Encounter Start Time: 08:45 Subjective: no sob, is passing flatus -: tolerating oral diet -: says he is amb in room - Objective MAR Reviewed: Yes Vital Signs & Weight: Vital Signs (12 hours) Temp Pulse Resp BP BP Pulse Ox 01/05/17 08:40 80 18 01/05/17 08:30 155/74 H 01/05/17 08:28 92 01/05/17 08:27 92 155/74 H 01/05/17 08:00 97.6 F 92 18 92 L 01/05/17 07:56 97.6 F 92 18 155/74 H 92 L 01/05/17 04:00 98.1 F 81 20 148/73 H 99 01/05/17 00:00 20 Weight Weight 158 lb 3.2 oz I&O: 01/04/17 01/05/17 01/06/17 06:59 06:59 06:59 Intake Total 1400 1440 Output Total 325 1525 Balance 1075 -85 Result Diagrams: 01/04/17 04:45 01/04/17 04:45 Phys Exam - Physical Examination HEENT: PERRLA, moist MMs Neck: no JVD, supple Respiratory: no wheezing, no rales Cardiovascular: RRR, no significant murmur Gastrointestinal: soft, non-tender, positive bowel sounds percut biliary drain+ Musculoskeletal: no edema, pulses present Neurological: non-focal, moves all 4 limbs Psychiatric: A&O x 3 Dx/Plan (1) Acute cholecystitis Code(s): K81.0 - ACUTE CHOLECYSTITIS Status: Acute Comment: s/p cholecystostomy (2) Demand ischemia Code(s): I24.8 - OTHER FORMS OF ACUTE ISCHEMIC HEART DISEASE Status: Acute (3) NSVT (nonsustained ventricular tachycardia) Code(s): I47.2 - VENTRICULAR TACHYCARDIA Status: Acute (4) Atrial fibrillation Code(s): I48.91 - UNSPECIFIED ATRIAL FIBRILLATION Status: Chronic Qualifiers: Atrial fibrillation type: chronic Qualified Code(s): I48.2 - Chronic atrial fibrillation (5) CAD (coronary artery disease) Code(s): I25.10 - ATHSCL HEART DISEASE OF [place] CORONARY ARTERY W/O ANG PCTRS Status: Chronic Qualifiers: Coronary Disease-Associated Artery/Lesion type: [place] artery [place] vs. transplanted heart: [place] heart Associated angina: without angina Qualified Code(s): I25.10 - Atherosclerotic heart disease of [place] coronary artery without angina pectoris (6) COPD (chronic obstructive pulmonary disease) Status: Chronic Qualifiers: COPD type: chronic bronchitis (7) Chronic systolic heart failure Code(s): I50.22 - CHRONIC SYSTOLIC (CONGESTIVE) HEART FAILURE Status: Chronic Comment: with ef of 25% (8) Dyslipidemia Code(s): E78.5 - HYPERLIPIDEMIA, UNSPECIFIED Status: Chronic (9) Hypertension Code(s): I10 - ESSENTIAL (PRIMARY) HYPERTENSION Status: Chronic Qualifiers: Hypertension type: essential hypertension Qualified Code(s): I10 - Essential (primary) hypertension (10) Macrocytic anemia Code(s): D53.9 - NUTRITIONAL ANEMIA, UNSPECIFIED Status: Chronic - Plan inr is 1.7, pt is on lovenox 70mg q12h with coumadin 5 mg -: is also on ceftriaxone and meropenem, will get ID opinion -: will likely need iv antibiotics on discharge -: will dc lovenox in am is inr is therapeutic -: will need HH for a minimum at home, await ID help for antibiotics * . Review of Systems - Medications/Allergies Allergies/Adverse Reactions: Allergies Allergy/AdvReac Type Severity Reaction Status Date / Time No Known Allergies Allergy Verified 12/01/16 15:34 Medications: Current Medications Acetaminophen (Tylenol) 650 mg PO Q4H PRN PRN Reason: Headache/Fever or Pain Last Admin: 12/29/16 19:37 Dose: 650 mg Hydrocodone Bitart/Acetaminophen ([place] 5/325) 1 tab PO Q4H PRN PRN Reason: Moderate Pain (4-6) Last Admin: 01/04/17 19:29 Dose: 1 tab Al Hydroxide/Mg Hydroxide (Maalox) 30 ml PO Q6H PRN PRN Reason: Heartburn or Indigestion Last Admin: 01/05/17 05:50 Dose: 30 ml Albuterol/Ipratropium (Duoneb) 3 ml NEB [id number] PRN PRN Reason: SOB &/or Wheezing Artificial Tears (Tears Naturale) 0 drop EA EYE PRN PRN PRN Reason: Dry Eyes Atorvastatin Calcium (Lipitor) 40 mg PO HS [facility] Last Admin: 01/04/17 20:49 Dose: 40 mg Benzonatate (Tessalon) 100 mg PO Q4H PRN PRN Reason: Cough Carvedilol (Coreg) 12.5 mg PO BID [facility] Last Admin: 01/05/17 08:28 Dose: 12.5 mg Cyanocobalamin (Vitamin B-12) 1,000 mcg PO DAILY [facility] Last Admin: 01/05/17 08:27 Dose: 1,000 mcg Digoxin (Lanoxin) 0.125 mg PO QAM [facility] Last Admin: 01/05/17 08:28 Dose: 0.125 mg Diltiazem HCl (Cardizem Cd) 240 mg PO DAILY [facility] Last Admin: 01/05/17 08:27 Dose: 240 mg Enoxaparin Sodium (Lovenox) 70 mg SC 0900,2100 [facility] Last Admin: 01/05/17 08:30 Dose: 70 mg Folic Acid (Folvite) 1 mg PO DAILY [facility] Last Admin: 01/05/17 08:28 Dose: 1 mg Furosemide (Lasix) 40 mg PO DAILY [facility] Last Admin: 01/05/17 08:28 Dose: 40 mg Guaifenesin (Robitussin Sf) 200 mg PO Q4H PRN PRN Reason: Cough Ceftriaxone Sodium 2 gm/Miscellaneous Medication 1 each/ Sodium Chloride 100 mls @ 200 mls/hr IVPB Q24HR [facility] Last Admin: 01/05/17 08:26 Dose: 100 mls Meropenem 1 gm/ Sodium (Chloride) 100 mls @ 200 mls/hr IVPB 0200,1000,1800 [facility] Last Admin: 01/05/17 10:03 Dose: 100 mls Isosorbide Mononitrate (Imdur) 60 mg PO DAILY [facility] Last Admin: 01/05/17 08:27 Dose: 60 mg Labetalol HCl (Normodyne) 20 mg SLOW IVP Q4H PRN PRN Reason: Systolic BP > 180 Lisinopril (Zestril) 10 mg PO DAILY [facility] Last Admin: 01/05/17 08:30 Dose: 10 mg Loperamide HCl (Imodium) 2 mg PO PRN PRN PRN Reason: Diarrhea/Loose Stools Loratadine (Claritin) 10 mg PO DAILYPRN PRN PRN Reason: Sinus Symptoms Magnesium Hydroxide (Milk Of Magnesium) 30 ml PO DAILYPRN PRN PRN Reason: Constipation Mineral Oil/White Petrolatum (Eucerin Cream) 0 gm TOP BIDPRN PRN PRN Reason: Dry Skin Mometasone Furoate/Formoterol Fumar (Dulera 200 Mcg/5 Mcg Inhaler) 2 puff INH BID-RT [facility] Last Admin: 01/05/17 08:40 Dose: 2 puff Morphine Sulfate (Morphine Sulfate) 2 mg SLOW IVP Q4H PRN PRN Reason: Severe Pain (7-10) Last Admin: 01/03/17 05:20 Dose: 2 mg Nitroglycerin (Nitrostat) 0.4 mg PO Q5MIN PRN PRN Reason: Chest Pain Ondansetron HCl (Zofran Odt) 4 mg PO Q6H PRN PRN Reason: Nausea/Vomiting Last Admin: 01/04/17 13:44 Dose: 4 mg Ondansetron HCl (Zofran) 4 mg IVP Q6H PRN PRN Reason: Nausea/Vomiting Last Admin: 01/05/17 08:31 Dose: 4 mg Pantoprazole Sodium (Protonix) 40 mg PO 2100 [facility] Last Admin: 01/04/17 20:49 Dose: 40 mg Phenol (Chloraseptic [place] 180 Ml Bot) 0 ml PO PRN PRN PRN Reason: Sore Throat Senna (Senokot) 2 tab PO HSPRN PRN PRN Reason: Constipation Sodium Chloride ([place] Nasal [place] 0.65%) 0 ml EA NARE QIDPRN PRN PRN Reason: Nasal Congestion Sodium Chloride (Flush - Normal Saline) 10 ml IVF Q12HR [facility] Last Admin: 01/05/17 08:34 Dose: 10 ml Sodium Chloride (Flush - Normal Saline) 10 ml IVF PRN PRN PRN Reason: Saline Flush Warfarin Sodium (Coumadin) 5 mg PO 1700 [facility] Last Admin: 01/04/17 17:11 Dose: 5 mg Zolpidem Tartrate (Ambien) 5 mg PO HSPRN PRN PRN Reason: Insomnia
[2017-01-05] MEDS: Piperacillin/Tazobactam 3.375 GM, Admixture Fee 1 EACH in Sodium Chloride 0.9% 100 ML IVPB SCH ×2 (13:28→19:53)
--- NOTE | 2017-01-05 13:49 | CON ---
DATE OF CONSULTATION: 01/05/2017 REASON FOR CONSULTATION: Acute cholecystitis. 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 The staging showed no mediastinal ly mphadenopathy involvement. So, he is a T1a with a good chance for cure. The patient was discharged on 12/17/2016, but has developed what he describes as a pain in the right lower chest, right upper ab domen, and brought back to the emergency room and admitted, because of what was recorded as palpitati ons, dizziness, tachycardia associated with atrial fibrillation with RVR. Although, in the admitting note, no mention is made regarding this pain, both patient and his state that he has had this q uite intense pain in the right upper quadrant all along. There is some associated diaphoresis. No h eadaches, no visual symptoms, sore throat, odynophagia, dysphagia, no dyspnea, mild chest pain in the thoracotomy site, voiding without difficulty, bowel movements are normal. No neurological symptoms. PAST MEDICAL HISTORY: Atrial fibrillation; coronary artery disease; ischemic cardiomyopathy, EF 25%- 30%; hypertension; recently diagnosed squamous cell cancer, [id number], treated with lobectomy; COPD. PAST SURGICAL HISTORY: Includes bypass graft surgery, mitral valve repair, AICD placement. SOCIAL HISTORY: Former smoker, quit a few years ago at the time that he had a bypass surgery. [facility]. FAMILY HISTORY: Heart disease. ALLERGY HISTORY: Negative. PHYSICAL EXAMINATION: VITAL SIGNS: T-max 98.4, blood pressure 150/70, pulse 77, respirations 18, O2 sat 92%-99%. GENERAL: Appears in no distress. SKIN EXAM: Shows the right upper quadrant percutaneous cholecystostomy drainage. Does not have Fole y catheter. Patient has a peripheral IV access. No lymphadenopathy. HEENT: Ocular movements are conjugate. Sclerae white. Pupils are equal. Nasal passages patent. O ral cavity with no evidence of [place] teeth; otherwise, somewhat dry oral mucosa, no lesions. NECK: Supple, no jugular venous distention, no thyromegaly. LUNGS: With diminished breath sounds on the right side. HEART: S1, S2, irregular rate. AICD pocket site with no inflammatory changes. Vxna-it-[id number] ten derness, right upper quadrant. ABDOMEN: Not distended. Bowel sounds are present. No ascites. No bladder distention. EXTREMITIES: Moves extremities equally. Pulses are 1+ in dorsalis pedis. Plantar responses are fle xure. NEUROLOGIC: Cognitive function appears to be intact. LABORATORY AND X-RAY FINDINGS: Sodium 139, creatinine 0.83, alkaline phosphatase 297, otherwise live r profile normal. Albumin 2.4. The white cell count was 11.5, now is 9.1; hemoglobin 10; platelets 294; 78% neutrophils. Toxicology with digoxin less than 0.15. Microbiology with C. difficile from t he end of November negative, both antigen and toxin. Gallbladder aspirate with Enterobacter aerogenes , broad susceptibility profile. ASSESSMENT: 1. Coronary artery disease with prior bypass graft surgery, ischemic cardiomyopathy, EF 20%-30% with automatic implantable cardioverter-defibrillator in place. 2. T1N0M0 right lung cancer, status post curative resection. 3. Acute cholecystitis, status post cholecystostomy tube placement. DISCUSSION: The management will include continuation of antimicrobial therapy and gallbladder draina ge. Eventually, the drain tube will be able to be removed. The abdominal ultrasound showed irregula r gallbladder wall thickening. There was a concern with malignancy. The CT of the abdomen showed ev idence of acute cholecystitis, although a mass within the gallbladder was the possibility considered. Cyst aspiration CT, only a blood-tinged fluid was obtained. At this point, patient to continue on IV Zosyn and an eventual transition to quinolones such as Cipro or Levaquin until there is resolution of inflammatory process and the tube is removed. Eventual cholecystectomy to be done at a later kayla e when he is most clinically stable. Sometimes most patients can be managed even without cholecystec glendy in the long-term.
[2017-01-05] MEDS: Warfarin Sodium 5 MG TAB PO SCH (17:17)
[2017-01-05] MEDS: Atorvastatin Calcium 40 MG TAB PO SCH (19:54)
[2017-01-05] MEDS: HYDROcodone/Acetaminophen 5/325 mg Tablet PO PRN (21:49)
[2017-01-06] MEDS: Meropenem 1 GM in Sodium Chloride 0.9% 100 ML IVPB SCH (01:30)
[2017-01-06] MEDS: Piperacillin/Tazobactam 3.375 GM, Admixture Fee 1 EACH in Sodium Chloride 0.9% 100 ML IVPB SCH ×2 (01:37→08:11)
[2017-01-06] MEDS: HYDROcodone/Acetaminophen 5/325 mg Tablet PO PRN (01:40)
[2017-01-06] MEDS: Ondansetron ODT 4 MG TAB PO PRN (04:03)
[2017-01-06] MEDS: Ondansetron HCl/PF 4 MG/2 ML Vial IVP PRN (05:04)
[2017-01-06 05:22] LABS: Prothrombin Time 27.7 SEC (12.0-14.7)
[2017-01-06 08:11] VITALS: TEMP 98.4
[2017-01-06] MEDS: Carvedilol 25 MG TAB PO SCH (08:12)
[2017-01-06] MEDS: Cyanocobalamin (Vitamin B-12) 1,000 MCG TAB PO SCH (08:13)
[2017-01-06] MEDS: Furosemide 40 MG TAB PO SCH (08:13)
[2017-01-06] MEDS: Lisinopril 10 MG TAB PO SCH (08:13)
[2017-01-06] MEDS: Digoxin 0.125 MG TAB PO SCH (08:13)
[2017-01-06] MEDS: Folic Acid 1 MG TAB PO SCH (08:13)
[2017-01-06] MEDS: Mometasone/Formoterol 120 PUFF INHALER INH SCH (08:13)
[2017-01-06] MEDS ORDERED: Enoxaparin Sodium 80 MG/0.8 ML SYRINGE SC SCH (09:00)
--- NOTE | 2017-01-06 12:13 | PDOC.PN ---
- Subjective Encounter Start Date: 01/06/17 Encounter Start Time: 08:00 Subjective: feels good, wants to go home - Objective MAR Reviewed: Yes Vital Signs & Weight: Vital Signs (12 hours) Temp Pulse Resp BP BP Pulse Ox 01/06/17 08:15 92 L 01/06/17 08:13 76 16 01/06/17 08:11 98.4 F 83 18 142/83 H 91 L 01/06/17 08:05 98.4 F 76 16 01/06/17 04:00 98 F 83 20 138/78 98 01/06/17 01:32 99.0 F 76 20 126/71 99 Weight Weight 157 lb 9 oz I&O: 01/05/17 01/06/17 01/07/17 06:59 06:59 06:59 Intake Total 1440 1620 332 Output Total 1525 1030 Balance -85 590 332 Result Diagrams: 01/04/17 04:45 01/04/17 04:45 Phys Exam - Physical Examination HEENT: PERRLA, moist MMs Neck: no JVD, supple Respiratory: no wheezing, no rales Cardiovascular: RRR, no significant murmur Gastrointestinal: soft, no distention, positive bowel sounds biliary drain+ Musculoskeletal: no edema, pulses present Neurological: non-focal, moves all 4 limbs Psychiatric: A&O x 3 Dx/Plan (1) Acute cholecystitis Code(s): K81.0 - ACUTE CHOLECYSTITIS Status: Acute Comment: s/p cholecystostomy (2) Demand ischemia Code(s): I24.8 - OTHER FORMS OF ACUTE ISCHEMIC HEART DISEASE Status: Acute (3) NSVT (nonsustained ventricular tachycardia) Code(s): I47.2 - VENTRICULAR TACHYCARDIA Status: Acute (4) Atrial fibrillation Code(s): I48.91 - UNSPECIFIED ATRIAL FIBRILLATION Status: Chronic Qualifiers: Atrial fibrillation type: chronic Qualified Code(s): I48.2 - Chronic atrial fibrillation (5) CAD (coronary artery disease) Code(s): I25.10 - ATHSCL HEART DISEASE OF [place] CORONARY ARTERY W/O ANG PCTRS Status: Chronic Qualifiers: Coronary Disease-Associated Artery/Lesion type: [place] artery [place] vs. transplanted heart: [place] heart Associated angina: without angina Qualified Code(s): I25.10 - Atherosclerotic heart disease of [place] coronary artery without angina pectoris (6) COPD (chronic obstructive pulmonary disease) Status: Chronic Qualifiers: COPD type: chronic bronchitis (7) Chronic systolic heart failure Code(s): I50.22 - CHRONIC SYSTOLIC (CONGESTIVE) HEART FAILURE Status: Chronic Comment: with ef of 25% (8) Dyslipidemia Code(s): E78.5 - HYPERLIPIDEMIA, UNSPECIFIED Status: Chronic (9) Hypertension Code(s): I10 - ESSENTIAL (PRIMARY) HYPERTENSION Status: Chronic Qualifiers: Hypertension type: essential hypertension Qualified Code(s): I10 - Essential (primary) hypertension (10) Macrocytic anemia Code(s): D53.9 - NUTRITIONAL ANEMIA, UNSPECIFIED Status: Chronic - Plan hemostable, inr is 2.5 -: levaquin for 15 days, to f/u with in 1-2 weeks -: d/w pts and daughter (RN), they are willing to take him home -: inr check on , family aware his inr will trend higher due to antibiotic -: dc pt home * .
[2017-01-06 12:43] VITALS: BP 139/70
--- NOTE | 2017-01-06 16:29 | DIS ---
DATE OF ADMISSION: 12/29/2016 DATE OF DISCHARGE: 01/06/2017 DISCHARGE DISPOSITION: To home. PRIMARY DISCHARGE DIAGNOSES: Acute cholecystitis with cholecystostomy, percutaneous drainage, left a trial thrombus, demand ischemia, chronic atrial fibrillation. 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 PROCEDURES DONE DURING HOSPITALIZATION: The patient has had abdominal and pelvic CAT scan done on day of admission, which showed findings of acute cholecystitis with significant sludge and thickeni ng of the bile within the gallbladder. Ultrasound abdomen done showed severe irregular gallbladder w all thickening with some nodular cystic or fluid changes within the gallbladder wall concerning for p ossibility of extensive gallbladder wall edema/underlying gallbladder wall malignancy could not be ru led out. Echo with 2D Doppler done showed an EF of 25%-30%. There was also diastolic dysfunction. Patient has had CT-guided drainage of bile done on 01/02/2017 by Interventional Radiology. Gallbladd er aspirate has grown Enterobacter aerogenes, sensitive to quinolones. Discharge H and H 10 and 32, platelet count 294. PT/INR, on the day of discharge, 27 and 2.5. Discharge albumin is 2.4. Dischar ge AST 20 and ALT 27, discharge alkaline phosphatase is 297. Total bilirubin, on the day of discharg e, 0.4; and troponin of 0.03, which was indeterminate. BNP was 1151. Lipase is 27. DISCHARGE MEDICATIONS: Levaquin 500 mg p.o. daily for another 2 weeks, lisinopril 10 mg p.o. daily, multivitamin 1 capsule daily, potassium chloride 20 mEq p.o. daily, Coumadin 4 and 5 mg as before, Im dur extended release 60 mg p.o. daily, Lasix 40 mg p.o. daily, Cardizem-CD 240 mg p.o. daily, digoxin 0.125 mg p.o. daily, Plavix 75 mg p.o. daily, Coreg 12.5 mg p.o. twice daily, atorvastatin 40 mg p.o . at bedtime, albuterol nebulizer 4 times daily. ALLERGIES: No known drug allergies. INPATIENT CONSULTS: Dr. Torres for General Surgery, Dr. Denny/Dr. Elizalde for Cardiology, and Dr. Rodríguez for Infectious Disease. BRIEF COURSE DURING HOSPITALIZATION: The patient initially got admitted for shortness of breath and palpitations. He was found to be in atrial fibrillation with RVR. Also, his INR was supratherapeuti c on arrival with INR of 4.6. Patient had abnormal liver function tests and had ultrasound of the ga llbladder done along with CT of the abdomen. The results are mentioned above. He was suspected to h ave acute cholecystitis. He has had consultation with Dr. Torres. In view of patient's poor EF and h is atrial fibrillation with RVR, Dr. Torres consulted Interventional Radiology for cholecystostomy tub e to be placed. This was done on the . His atrial fibrillation with RVR was rate controlled. T he patient has been ambulating in the room. He has been wanting to go home from last 2 days. His IN R is 2.5 this morning. I have given complete details about his current medical issues and the plan t o both patient's and his daughter, who is an RN. They both are aware that patient needs to have INR checked on Sunday. The family is also aware that his INR levels could go haphazard, as patient is on Levaquin, which has an interaction with Coumadin. His primary care physician is managing his I NR from before and will do the same on discharge. Patient needs to follow up with Dr. Torres in [facility]. He will be given care for managing his cholecystostomy tube per Dr. Torres's advice prior to disc harge. If the tube were to get dislodged from its current position, the patient needs to go to the [facility] emergency room for imaging to confirm the tube. This has been clearly explained to patient's daughter, who is an RN. The patient is fully oriented and I have given complete explanation about th e plan. They need to call Dr. Torres's office to make the appointment. The patient also needs follow up with Dr. Elizalde, his lease administration analyst, in 2 weeks. Likely, patient will need cholecystectomy if r epeat CT shows findings of clearing up of his current cholecystitis. Again, this is per Dr. Torres's advice. In view of his cultures growing Enterobacter aerogenes on the gallbladder aspirate sensitive to quinolones, he has been placed on Levaquin per Dr. Molina' advice for 2 weeks. He is otherwise he modynamically stable and the family is wanting to take him home. A total of 35 minutes was spent on discharge plan. Please see a [id number] documentation on [facility] for the day of discharge.
== END 2017-01-06 13:21 | disposition home or self-care (01) | DRG 444 ==
LOC: ERS 12:44 → 2SW 14:23 → OBSVTOIN 12-30 10:22 → 2NO 12-30 14:13
PROVIDERS: ADMIT Internal Medicine; ATTEND Internal Medicine
PROC: 30233R1 Transfusion of Nonautologous Platelets into Peripheral Vein, Percutaneous Approach (ICD-10-PCS; principal; 2017-01-02)
PROC: 0F9430Z Drainage of Gallbladder with Drainage Device, Percutaneous Approach (ICD-10-PCS; 2017-01-02)
DX: K81.0 Acute cholecystitis (principal); I50.23 Acute on chronic systolic (congestive) heart failure; J96.01 Acute respiratory failure with hypoxia; I47.2 Ventricular tachycardia; I24.8 Other forms of acute ischemic heart disease; D68.9 Coagulation defect, unspecified; J93.83 Other pneumothorax; I48.2 Chronic atrial fibrillation; C34.31 Malignant neoplasm of lower lobe, right bronchus or lung; J44.9 Chronic obstructive pulmonary disease, unspecified; D53.9 Nutritional anemia, unspecified; E78.5 Hyperlipidemia, unspecified; Z95.2 Presence of prosthetic heart valve; Z95.1 Presence of aortocoronary bypass graft; Z79.01 Long term (current) use of anticoagulants; I11.0 Hypertensive heart disease with heart failure; Z95.810 Presence of automatic (implantable) cardiac defibrillator; I25.10 Atherosclerotic heart disease of native coronary artery without angina pectoris; I25.5 Ischemic cardiomyopathy; T45.515A Adverse effect of anticoagulants, initial encounter; R79.89 Other specified abnormal findings of blood chemistry
CPT/HCPCS: 36415; 36430; 49020; 71010; 74177; 76705; 77012; 80048; 80053; 80061; 80162; 82553; 83690; 83735; 83880; 84484; 85025; 85610; 85730; 86850; 86900; 86901; 87070; 87077; 87186; 87205; 93005; 93306; 93798; A4216; C1729; J0696; J1160; J1650; J2185; J2270; J2405; J2543; J3430; J7050; P9035; Q0162

== ENCOUNTER 2017-02-08 11:14 | Emergency (ER) | payer MEDICARE ==
--- NOTE | 2017-02-08 11:57 | RAD ---
PORTABLE CHEST 1 VIEW: DATE: 02/08/17. TIME: 11:44 a.m. HISTORY: Recent lobectomy. FINDINGS: Comparison is made to the exam of 12/29/16. Changes of median sternotomy are again seen. Left-sided AICD remains in place. There is a right-mira ed pleural effusion with adjacent increased density in the right lower lung. No pneumothorax is seen . POS: BRYN
[2017-02-08 12:01] LABS: #Eosinphils 0.1 thou/uL (0.0-0.7); #Lymphocytes 1.2 thou/uL (1.20-3.40); #Monocytes 0.8 thou/uL (0.11-0.59); #Neutrophils 7.9 thou/uL (1.40-6.50); %Basophils 0.4 % (0.0-1.0); %Eosinophils 0.8 % (0.0-10.0); %Lymphocytes 11.6 % (21.0-51.0); %Monocytes 7.7 % (0.0-10.0); Hematocrit 34.4 % (42.0-52.0); Mean Platelet Volume 6.7 fL (7.4-10.4); Red Blood Cell (RBC) Count 3.41 mill/uL (4.70-6.10); White Blood Cell (WBC) Count 9.9 thou/uL (4.8-10.8)
[2017-02-08 12:25] LABS: Prothrombin Time 27.3 SEC (12.0-14.7)
[2017-02-08 12:26] LABS: PTT 63.3 SEC (22.9-36.1)
[2017-02-08 12:27] LABS: Troponin I 0.042 ng/mL (< 0.028)
[2017-02-08 14:24] LABS: Troponin I 0.032 ng/mL (< 0.028)
== END 2017-02-08 14:42 | disposition home or self-care (01) ==
LOC: ERS 11:14
DX: M79.89 Other specified soft tissue disorders (principal); D68.9 Coagulation defect, unspecified; I48.91 Unspecified atrial fibrillation; I25.10 Atherosclerotic heart disease of native coronary artery without angina pectoris; I11.0 Hypertensive heart disease with heart failure; I50.9 Heart failure, unspecified; J44.9 Chronic obstructive pulmonary disease, unspecified; Z87.891 Personal history of nicotine dependence; Z79.01 Long term (current) use of anticoagulants; Z79.899 Other long term (current) drug therapy
CPT/HCPCS: 71010; 82553; 83880; 84484; 85025; 85610; 85730; 93005

== ENCOUNTER 2017-02-23 00:21 | Inpatient (IN) | payer MEDICARE ==
[2017-02-23] MEDS ORDERED: Morphine 4 MG/ML VIAL ONE ×3 (00:46→10:16)
[2017-02-23 01:00] LABS: #Eosinphils 0.1 thou/uL (0.0-0.7); #Lymphocytes 0.9 thou/uL (1.20-3.40); #Monocytes 0.9 thou/uL (0.11-0.59); #Neutrophils 10.6 thou/uL (1.40-6.50); %Eosinophils 0.5 % (0.0-10.0); %Lymphocytes 6.9 % (21.0-51.0); %Monocytes 6.9 % (0.0-10.0); %Neutrophils 85.8 % (42.0-75.0); Hemoglobin 11.3 g/dL (14.0-18.0); Mean Platelet Volume 6.7 fL (7.4-10.4); Platelet Count 297 thou/uL (130-400); RBC Distribution Width 17.3 % (11.5-14.5); Red Blood Cell (RBC) Count 3.43 mill/uL (4.70-6.10); White Blood Cell (WBC) Count 12.3 thou/uL (4.8-10.8)
[2017-02-23 01:16] LABS: ALT (SGPT) 78 U/L (8-55); AST (SGOT) 154 U/L (5-34); Albumin 3.4 g/dL (3.4-4.8); Alkaline Phosphatase 218 U/L (40-150); Anion Gap 11 mmol/L (10-20); BUN (Urea Nitrogen) 19 mg/dL (8.4-25.7); Bilirubin, Total 0.8 mg/dL (0.2-1.2); Calc. Creatinine Clearance 0 mL/min (70-130); Calcium 9.8 mg/dL (7.8-10.44); Carbon Dioxide 29 mmol/L (23-31); Chloride 107 mmol/L (98-107); Estimated GFR-MDRD 61; Glucose 113 mg/dL (83-110); Lipase 24 U/L (8-78); Potassium 4.1 mmol/L (3.5-5.1); Protein, Total 6.4 g/dL (5.8-8.1); Sodium 143 mmol/L (136-145)
[2017-02-23 03:04] LABS: CKMB 1.3 ng/mL (0-6.6); Troponin I 0.045 ng/mL (< 0.028)
[2017-02-23] MEDS ORDERED: Levofloxacin 500 mg/D5W 100 ml Premix Bag ONE (03:41)
--- NOTE | 2017-02-23 08:07 | RAD ---
RADIOGRAPH CHEST 1 VIEW: Date: 02-23-17 Time: 2:22 a.m. HISTORY: 76-year-old male with right sided chest pain. COMPARISON: 02-08-17 FINDINGS: Again noted is the right pleural effusion, and interstitial infiltrates at the bilateral mid and lowe r lung zones, at least some of which are chronic. There is no evidence of pneumothorax. The left late ral costophrenic angle remains sharp. Allowing for technical differences there is no significant inte rval change. IMPRESSION: 1. Small right pleural effusion. 2. Interstitial infiltrates, at least some, and possibly all, of which are chronic, right worse than left. 3. Automatic implantable cardioverter defibrillator. 4. Status post coronary artery bypass graft surgery is evidence for coronary artery atherosclerotic d isease. JOCELIN POS: LUKE
--- NOTE | 2017-02-23 08:08 | ULT ---
PRELIMINARY REPORT/[facility]/EMERGENCY AFTER HOURS PROCEDURE: EXAM: US Abdomen Complete EXAM DATE/TIME: 02/23/2017 1:06 AM CLINICAL HISTORY: 76 years old, male; Pain; Abdominal pain; Generalized; Prior surgery; Surgery date: 1-6 months; Surge ry type: Rt lung surgically removed due to ca, gallbladder drained due to distention (01/05); Patient HX: Generalized abd pain, bruising at rlq TECHNIQUE: Real-time ultrasound of the abdomen (complete) with image documentation. COMPARISON: No relevant prior studies available. FINDINGS: Liver: Liver is 15.9 cm in length with normal echogenicity. Normal appearing main portal vein flow. Multiple hepatic up to 2.9 cm cysts. No intrahepatic bile duct dilation. Gallbladder: Gallbladder contains moderate sluge, marked up to 7 mm wall thickening. No gallstones. Common bile duct: Common bile duct is normal in width at 6 mm. No stones. No dilation. Pancreas: Visualized portions of the pancreas -upper normal pancreatic duct 3 mm. Kidneys: Right kidney 5 x 4.6 x 10.7 cm appears normal. Ovoid 4 mm stone. Left kidney 5.7 x 6.1 x 10 cm appears normal. Round 2 cm simple cyst. No hydronephrosis. Spleen: Spleen appears normal in morphology and echogenicity. Aorta: Aorta visualized portions appears normal. Inferior vena cava: IVC -partially visualized portions appears normal. Free fluid: No evidence of free fluid. Pleural space: Moderate right pleural effusion. IMPRESSION: 1. Gallbladder sluge material and marked wall thicking - possible cholecystitis. 2. Mild enlargement/elongation of the liver and multiple hepatic cysts. 3. Upper normal pancreatic duct 3 mm. 4. Moderate right pleural effusion. 5. Right renal stone. Left simple renal cyst. Thank you for allowing us to participate in the care of your patient. Dictated and Authenticated by: Stacia Jenkins MD 02/23/2017 3:02 AM Central Time ([place] & [place]) FINAL REPORT ULTRASOUND ABDOMEN: I agree with the preliminary report given by Dr. Stacia Jenkins of [facility]. POS: OFF
--- NOTE | 2017-02-23 09:18 | HP ---
DATE OF ADMISSION: 02/23/2017 CHIEF COMPLAINT: Right upper abdominal pain. HISTORY OF PRESENT ILLNESS: The patient is a 76-year-old male who developed acute sharp pa in in the right upper abdomen yesterday, it was rated at 10 on a scale from 1-10. He had some nausea , but he did not vomit. He denied any diarrhea. There was no fever or chills, although he feels col d all the time. He was admitted to the hospital in December with cholecystitis and because of his si gnificant cardiac history, he did not go through cholecystectomy. He had gallbladder drained by radi ologist and the tube was placed. He followed up with Dr. Torres approximately 2-3 weeks ago and the d rain was removed. He was doing quite well until last night when he started having abdominal pain. PAST MEDICAL HISTORY: Positive for: 1. Atrial fibrillation, which is chronic. 2. Congestive heart failure with LVEF of 25%-30%. 3. Hypertension. 4. Chronic obstructive pulmonary disease. 5. Dyslipidemia. 6. History of squamous cell carcinoma of the lung treated with lobectomy. PAST SURGICAL HISTORY: 1. Coronary artery bypass graft. 2. Mitral valve repair. 3. Right lower lobectomy with mediastinal lymph nodes staging. 4. AICD placement. 5. Cardiac catheterization with stent placement. 6. Hernia repair. 7. Appendectomy. SOCIAL HISTORY: He is a former smoker. He quit a few years ago, used to smoke half pack per day for several years. He denied any alcohol intake. He denies any illicit drug use. FAMILY HISTORY: Father had cancer of unknown origin, he in his 60s and mother had WI and she di ed in her mid 60s. ALLERGIES: None. CURRENT MEDICATIONS: Furosemide 40 mg once a day, warfarin 3 mg once a day, lisinopril 10 mg once a day, clopidogrel 75 mg once a day, carvedilol 12.5 mg twice a day, isosorbide mononitrate 60 mg once a day, Klor-Con 20 mEq once a day, Cartia XT unknown dose once a day, atorvastatin 40 mg once a day a t bedtime, digoxin 125 mcg once a day, DuoNeb 4 times a day. PRIMARY CARE PHYSICIAN: Dr. Jane Ordonez from [place]. SURROGATE DECISION MAKER: His ex-, Mattie Lorenzana. He is , but they leave together, kavon lopez of the current financial situation for both of them. REVIEW OF SYSTEMS: All 14 systems were reviewed and findings were negative except for symptoms menti oned in the HPI plus right calf claudication on and off with ambulation, also some shortness of breat h on and off secondary to his COPD and chest pains on and off related to his coronary artery disease. IMAGING: Ultrasound of the upper abdomen, which showed, 1. Gallbladder sludge material and marked wall thickening, possible cholecystitis. 2. Mild enlargement/elongation of the liver on multiple hepatic cysts. 3. Abnormal pancreatic duct, 3 mm. 4. Moderate right pleural effusion. 5. Right renal stone. EKG showed paced rhythm, 112 beats per minute and underlying atrial fibrillation. IMPRESSION: 1. Right upper abdomen pain, which is most likely related to recurrent cholecystitis. The patient w as treated with IV morphine and he was started on levofloxacin. Apparently, culture of the gallbladd er drained fluids, grew Enterococcus during previous hospitalization and he was discharged on levoflo xacin. We will obtain General Surgery consultation, Dr. Donaldson was consulted by the emergency room physician. For now, we will keep the patient n.p.o. if General Surgeon decides to take him to the OR this morning. 2. History of congestive heart failure with low LVEF, 25%-30%. 3. Chronic obstructive pulmonary disease, chronic, stable. 4. Coronary artery disease, chronic, stable. 5. Hypertension, chronic, stable. 6. Dyslipidemia, chronic, stable. 7. History of lung cancer treated with lobectomy. 8. AICD. PHYSICAL EXAMINATION: GENERAL: Patient is not in distress during my visit, although he had a small amount of vomiting this morning, he just came back from the bathroom. He is hard of hearing. VITAL SIGNS: Blood pressure 110/72, pulse 95, respirations 20, temperature 98.3, O2 saturation is 93 % on room air. The last blood pressure recorded is 125/64, pulse 95, respiratory rate is 18, tempera ture is 98.3, pain is rated at 6 on a scale from 1-10. HEENT: His head is atraumatic, normocephalic. Eyes are PERRLA. Conjunctivae pinkish. Oral mucosa is somewhat dry. NECK: Supple, no lymphadenopathy. Thyroid is not palpable. LUNGS: Breath sounds diminished at both bases. HEART: S1, S2, irregularly irregular. No S3, no S4. There is a defibrillator in left upper chest. There is a scar below the right scapular, healed properly. ABDOMEN: Soft, tender to deeper palpation in the right upper quadrant with mild guarding. EXTREMITIES: 1-2+ peripheral edema similar bilaterally around the ankles. NEUROLOGIC: He is alert and oriented x4. There are no motor or sensory deficits present. Cranial n erves are intact. LABORATORY DATA: Showed normal electrolytes, creatinine of 1.16, BUN of 19, glucose 113, AST 154, AL T 78, alkaline phosphatase 218, CK-MB is 1.3, troponin I is 0.045, lipase 24. White count of 12.3, h emoglobin 11.3, hematocrit 35.4, MCV 103.0, platelet count is 297,000, 85.8 neutrophils. Ultrasound and chest x-ray findings mentioned above and diagnosis was listed above. PLAN: Full admission to medical floor with telemetry monitoring since his cardiac condition is quite stable. We will obtain INR and PT since it was not done in the emergency room. We will have a Gene ral Surgery to see the patient, Dr. Donaldson is consulted. We will reconcile his home medications whe n the list is available. He will be n.p.o. except medications until he is seen by general surgeon. We will use morphine 4 mg every 4 hours p.r.n. as needed for the pain. He will be on PUD prophylaxis with Pepcid IV push 10 mg q.12 hours and he is not going to be on Lovenox since he is on warfarin at home.
[2017-02-23] MEDS ORDERED: Morphine 4 MG/ML VIAL SLOW IVP PRN (09:30)
[2017-02-23 09:35] LABS: INR-International Normal Ratio 1.5; Prothrombin Time 18.2 SEC (12.0-14.7)
[2017-02-23] MEDS ORDERED: Potassium Chloride 20 MEQ TAB ONE (10:15)
[2017-02-23] MEDS ORDERED: Digoxin 0.125 MG TAB ONE (10:15)
[2017-02-23] MEDS ORDERED: Furosemide 40 MG TAB ONE (10:15)
[2017-02-23] MEDS ORDERED: Famotidine/PF 20 mg/2ml Vial ONE (10:41)
[2017-02-23] MEDS: Famotidine/PF 20 mg/2ml Vial SLOW IVP SCH ×2 (13:06→20:41)
[2017-02-23] MEDS: Digoxin 0.125 MG TAB PO SCH (13:06)
[2017-02-23] MEDS: Furosemide 40 MG TAB PO SCH (13:06)
[2017-02-23] MEDS: Lisinopril 10 MG TAB PO SCH (13:06)
[2017-02-23] MEDS: Carvedilol 6.25 MG TAB PO SCH ×2 (13:06→20:40)
[2017-02-23] MEDS: Potassium Chloride 20 MEQ TAB PO SCH (13:07)
[2017-02-23] MEDS: Ipratropium Bromide 2.5 ml Neb NEB SCH ×3 (13:08→20:04)
[2017-02-23] MEDS: Albuterol Sulfate 2.5 mg/3 ml Neb NEB SCH ×3 (13:08→20:04)
[2017-02-23 13:29] LABS: CKMB 2.1 ng/mL (0-6.6); Troponin I 0.036 ng/mL (< 0.028)
[2017-02-23 14:36] VITALS: BMI 25.0
[2017-02-23 17:20] LABS: Platelet Count 279 thou/uL (130-400)
[2017-02-23 17:59] LABS: CKMB 2.2 ng/mL (0-6.6); Troponin I 0.039 ng/mL (< 0.028)
--- NOTE | 2017-02-23 19:51 | CON ---
DATE OF CONSULTATION: 02/23/2017 REQUESTING PHYSICIAN: Toñito Escobedo M.D. 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 The patient was admitted in 12/2016 with acute cholecystitis, which was acalculous in nature. Due to his significant comorbidities at that time, conservative management was elected including IV antibiotic therapy. The patient was coagulopathic from warfarin and once coagulopathy resolved, patient underwent planned percutaneous cholecystostomy tube placement. He did well during that hospitalization and was ultimately discharged home. He was seen outpatient by Dr. Torres where the cholecystostomy tube was removed as patient had had no symptoms since discharge from hospitalization. The patient presented to the emergency department last night, reporting "15/10" severe right upper quadrant abdominal pain which started approximately 2200 hours. The pain was sharp in nature, radiating to his back. He had multiple episodes of nausea and dry heaves but did not have any emesis. He denies any diarrhea. He denies any fevers or chills. Last meal was last night which consisted of fried potatoes and green beans. PAST MEDICAL HISTORY: Significant for chronic cardiomyopathy with left ventricular ejection fraction 25%-30% noted during the recent hospitalization. 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 PAST SURGICAL HISTORY: Significant for right lower lobectomy in 11/2016, percutaneous cholecystostomy tube placement in 12/2016. Other surgical history includes coronary arterial bypass graft, coronary angiography with multiple stents placed. The patient is status post AICD placement, appendectomy and inguinal herniorrhaphies. SOCIAL HISTORY: Patient lives independently with his ex-. He has over 40- pack-year cigarette smoking history, but has not smoked for a few years now. Denies any ethanol or illicit drug abuse. FAMILY HISTORY: Noncontributory for this patient's age. I have reviewed his prehospitalization medications. ALLERGIES: Patient denies any known drug allergies. REVIEW OF SYSTEMS: Ten-point review of systems essentially unremarkable except for as stated in past medical history and chief complaint. PHYSICAL EXAMINATION: GENERAL: This reveals a 76-year-old normally developed man who is otherwise coherent and interactive and appears stated age. The patient is alert and oriented x3. He appears to be in no acute distress at the time of my evaluation. VITAL SIGNS: Include blood pressure 120/69, pulse 87, respiratory rate is 19, temperature is 97.6 degrees Fahrenheit, oxygen saturation is 97% on 2 liters by nasal cannula oxygen. HEENT: Reveals normocephalic and atraumatic. Pupils are equal, round, and reactive to light and accommodation. Extraocular muscles are intact bilaterally. He has no sclerae icterus present. No jugular venous distention noted. CARDIOVASCULAR: Reveals irregular rate and irregular rhythm, although rate controlled. LUNGS: Reveals scattered expiratory wheeze. Breathing is otherwise regular and unlabored. ABDOMEN: Soft and nondistended. He has right upper quadrant tenderness to palpation. Liver and spleen are otherwise nonpalpable below costal margins. EXTREMITIES: Reveals 2+ radial and pedal pulses bilaterally. He has trace bilateral ankle edema present. NEUROLOGIC: Reveals no focal deficits present. PERTINENT LABORATORY FINDINGS: Today includes CBC with 12,300 white blood cells , hemoglobin 11.3, hematocrit is 35.4, platelet count is 297,000. Metabolic profile: Sodium 143, potassium is 4.1, chloride is 107, bicarbonate is 29, BUN 19, creatinine is 1.16, glucose 113. Total bilirubin is 0.8, AST and ALT elevated at 154 and 78 respectively. Alkaline phosphatase is also elevated at 218. Serum lipase is normal at 24. I have personally reviewed the gallbladder ultrasound obtained which reveals a contracted gallbladder with sludge and gallbladder wall thickening. IMPRESSION: 1. Acute on chronic acalculous cholecystitis. 2. History of severe cardiomyopathy. 3. History of chronic obstructive pulmonary disease. 4. 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 RECOMMENDATIONS: Conservative management including bland diet and analgesics. The alternative is to proceed with a laparoscopic cholecystectomy with inherent risks for bleeding, infection, injury to bile duct or surrounding structures. Additionally, given this patient's significant comorbidities, I have advised him of his increased risk for perioperative mortality, at the very least difficulty with ventilatory wean postoperatively. If he survives the surgery, he may be at risk for perioperative cerebrovascular accident or myocardial infarction. The patient indicates understanding of this information and risk as advised. He stated that he is the one that is feeling this pain and wishes to not going home without having his gallbladder removed as the pain that brought him to the hospital is quite unbearable by his account. I did answer all his questions. The patient has elected to proceed with cholecystectomy with understanding of all the risks as informed. I will be discussing the above with his Primary Care Service as well as Cardiology and Pulmonary service. Thank you again, Dr. Escobedo for allowing me the opportunity to participate in the care of this patient. AURELIO
[2017-02-23] MEDS ORDERED: Melatonin 3 MG TAB PO PRN (21:17)
[2017-02-23] MEDS: Ondansetron HCl/PF 4 MG/2 ML Vial IVP PRN (21:54)
--- NOTE | 2017-02-23 23:45 | CON ---
DATE OF CONSULTATION: 02/23/2017 HISTORY OF PRESENT ILLNESS: This patient is an unfortunate 76-year-old gentleman with a long history of coronary artery disease. In 2008, he underwent coronary bypass graft surgery and mitral valve repair. The patient subsequently re-presented two years ago with chest pain. He underwent a repeat catheterization and was found to have several occluded coronary bypass grafts. The patient was felt not to be a candidate for redo coronary bypass graft surgery, underwent PTCA and stent placement including stent placements to left main artery. The patient states this markedly improved his angina. The patient approximately a year later re-presented and subsequently underwent a repeat PTCA and stent placement into an intermediate vessel. The patient also has a history of paroxysmal atrial fibrillation. He has had placement of automatic implantable cardiac defibrillator. Most recently, the patient was found to have a lung nodule and cholelithiasis. The patient underwent a lobectomy. Following the procedure, he developed atrial fibrillation. He did develop postoperative atrial fibrillation. The patient presented with recurrent abdominal discomfort.The patient states that he has occasional angina. He states none in the last month. He reports he will have midsternal chest pain that will last up to a minute. He does not use nitroglycerin tablets. The patient denies having any present chest discomfort. PAST MEDICAL HISTORY: 1. Ischemic cardiomyopathy. 2. Coronary artery disease. 3. Hypertension. 4. History of mitral valve repair. 5. History of PTCA and stent placement. 6. Dyslipidemia. 7. Hypertension. PAST SURGICAL HISTORY: Coronary artery bypass graft surgery, lobectomy and appendectomy and hernia repair. SOCIAL HISTORY: Former smoker. FAMILY HISTORY: Strong family history of heart disease. ALLERGIES: None. MEDICATIONS: Coumadin 3 at bedtime, lisinopril 10 daily, clopidogrel 75 daily , Coreg 12.5 b.i.d., Lasix 40 daily, K-Chlor 20 daily, Cartia 1 tablet daily, Lipitor 40 at bedtime, and digoxin 0.125 daily. REVIEW OF SYSTEMS: Ten-point system is otherwise unremarkable. No history of easy bruising, bright red blood per rectum, hematuria. PHYSICAL EXAMINATION: GENERAL: Thin gentleman, in no acute distress. VITAL SIGNS: Blood pressure 120/69. NECK: Showed no jugular venous distention. LUNGS: Diminished breath sounds in the right lung field with coarse breath sounds in the left lung grider. HEART: Regular rate and rhythm, normal S1 and S2. No murmurs. ABDOMEN: Nondistended. EXTREMITIES: Showed no edema. SKIN: Warm and dry. NEUROLOGIC: Nonfocal. VASCULAR: Radial pulses are 2+. LABORATORY RESULTS: Sodium 143, potassium 4.1, chloride 107, bicarbonate 29, BUN 19, creatinine 1.16, glucose 113. Troponin 0.045, white blood cell count 12.3, hemoglobin 11.3, hematocrit 35.4, and platelets are 297. INR was 1.5. EKG revealed a dual-chamber electronic pacemaker. IMPRESSION: 1. Cholecystitis. 2. History of coronary artery bypass graft surgery and mitral valve repair. 3. History of percutaneous transluminal coronary angioplasty and stent placement including left main artery. 4. Ischemic cardiomyopathy. 5. History of paroxysmal atrial fibrillation. 6. History of AICD placement. 7. Chronic obstructive pulmonary disease. 8. Hypertension. This gentleman presents with recurrent abdominal discomfort. He most recently underwent a lobectomy without any cardiac complications other than atrial fibrillation. During the rapid atrial fibrillation, he apparently had no angina. He is adamant that he wants to proceed with a cholecystectomy,and understands that he is at moderate to high risk of cardiac complications, but not an unacceptable risk. He is aware of the potential risks of myocardial infarction, cardiac arrhythmias, and cardiac . If the patient should develop recurrent atrial fibrillation, we will use IV amiodarone to try to maintain sinus rhythm and it is imperative that he not develop prolonged elevated heart rates. We will follow this patient with you through this hospitalization. AURELIO
--- NOTE | 2017-02-23 23:52 | CON ---
DATE OF CONSULTATION: 02/23/2017 HISTORY OF PRESENT: The patient is an unfortunate 76-year-old gentleman with a long history of coronary artery disease and severe COPD, who presents with abdominal discomfort. The patient has a long history of coronary artery disease .In 2008, he underwent coronary artery bypass graft surgery and had mitral valve repair. The patient also has a history of severe ischemic cardiomyopathy. Most recently in 2014, he underwent a followup catheterization and was found to have a patent CROWLEY graft to the LAD, but an occluded graft to the RCA and ramus. The patient was felt to be at prohibitive risk for undergoing repeat coronary artery bypass graft surgery. He subsequently underwent PTCA and stent placement into the left main artery. The following year, the patient re-presented with chest discomfort. He underwent a followup catheterization. He subsequently underwent PTCA and stent placement into the saphenous vein graft to the intermediate ramus branch. The patient subsequently had also developed paroxysmal atrial fibrillation. The patient has had placement of automatic implantable cardiac defibrillator. The patient has been admitted most recently with cholecystitis and was found to have a lung mass. He underwent a lobectomy. Following the procedure, the patient developed postoperative atrial fibrillation, but otherwise did well. He has reported having severe abdominal discomfort. This has been unrelenting for the past month since his surgery. The patient presented again with increased abdominal discomfort.The patient reports having rare episodes of chest discomfort. He states that he will notice having a midsternal discomfort that lasts approximately 1 minute. This discomfort occurs with and without exertion. The patient is very limited in his mobility due to severe COPD. The patient denies having any recent chest discomfort. He reports dyspnea with minimal exertion. PAST MEDICAL HISTORY: 1. Coronary artery disease. 2. Status post mitral valve repair. 3. Hypertension. 4. Dyslipidemia. 5. Chronic obstructive pulmonary disease. 6. History of lung carcinoma. PAST SURGICAL HISTORY: Hernia repair, appendectomy, mitral valve repair, coronary artery bypass graft surgery. SOCIAL HISTORY: He is a former smoker. FAMILY HISTORY: Strong family history of coronary artery disease. ALLERGIES: None. MEDICATIONS: Imdur 60 daily, K-Chlor 20 daily, Cartia 240 daily, Lipitor 40 at bedtime, digoxin 0.125 daily, Lasix 40 daily, and lisinopril 10 daily. REVIEW OF SYSTEMS: Ten-point system was otherwise unremarkable. No history of bright red blood per rectum, hematuria. PHYSICAL EXAMINATION: GENERAL: This is a thin gentleman in no acute distress. VITAL SIGNS: Blood pressure 120/69. NECK: Showed no jugular venous distention. LUNGS: Have decreased breath sounds in the right lung field and coarse breath sounds in the left lung field. HEART: Regular rate and rhythm. Normal S1, S2 with no murmurs. ABDOMEN: Distended and tender in the right upper quadrant. EXTREMITIES: Showed no edema. SKIN: Warm and dry. NEUROLOGIC: Nonfocal. VASCULAR: Radial pulses are 2+. LABORATORY DATA: White blood cell count 12.3, hemoglobin 11.3, hematocrit 35.4 , platelets 297. Sodium is 143, potassium 4.1, chloride 107, bicarbonate 29, BUN 19, creatinine is 1.6. AST is 154. Troponin is 0.045. EKG revealed a dual -chamber electronic pacemaker. IMPRESSION: 1. Cholecystitis. 2. History of coronary artery bypass graft surgery and MV repair. The patient should be at acceptable risk for non-cardiac surgery. MTDD
--- NOTE | 2017-02-24 00:08 | CON ---
DATE OF CONSULTATION: 02/23/2017 SERVICE: Pulmonary Medicine. HISTORY OF PRESENT ILLNESS: The patient is a 76-year-old white male who presented to the hospital wi th right upper quadrant abdominal discomfort. He was in his usual state of health until he started h aving this discomfort. He presented to the hospital and ultimately had findings consistent with chol ecystitis. He was admitted to the hospital in December with similar things. He had cholecystostomy drain that was placed. This was removed 2-3 weeks ago. He was doing well until last night when he s tarted having the abdominal pain associated with nausea. PAST MEDICAL HISTORY: 1. Atrial fibrillation, chronic. 2. Chronic systolic heart failure with 25% ejection fraction. 3. Hypertension. 4. COPD. 5. Dyslipidemia. 6. Squamous cell carcinoma of the lung, status post lobectomy. PAST SURGICAL HISTORY: 1. Coronary artery bypass graft. 2. Right lower lobectomy with mediastinal lymph node biopsy. 3. Mitral valve repair. 4. AICD placement. 5. Cardiac catheterization with stent placement. 6. Hernia repair. 7. Appendectomy. SOCIAL HISTORY: Negative for alcohol, tobacco or illicit drug use. He has greater than 50-pack year history of smoking. He has no exposure to chemicals, dust, asbestos, or tuberculosis. FAMILY HISTORY: Noncontributory. ALLERGIES: No known drug allergies. MEDICATIONS: List of his inpatient medications were reviewed. A couple of small updates were made a t this time. PHYSICAL EXAMINATION: VITAL SIGNS: Afebrile, pulse 85, blood pressure 120/67, respiration 16, saturation 99% on 2 L nasal cannula. GENERAL: The patient is awake and alert, in no apparent distress. LUNGS: Excellent air entry. Prolonged expiratory phase present with little bit of rhonchi that oscar red with cough and minimal expiratory wheezing with forced exhalation. Dependent crackles are apprec iated. HEART: Normal rate, regular. ABDOMEN: Soft, nontender, nondistended, bowel sounds are positive. MUSCULOSKELETEL: No cyanosis or clubbing. There is trace 1+ pitting in the bilateral lower extremit ies. NEUROLOGIC: Grossly nonfocal. LABORATORY DATA: WBC 12.3, hemoglobin 11.3, platelets 297,000, INR 1.4. Basic metabolic profile is unremarkable. Liver function studies are significant for an elevated AST, ALT and alkaline phosphata se. Total bilirubin falls within the normal limits. Troponin is indeterminate. Liver functions jose g dies are otherwise unremarkable. IMAGING: Chest x-ray demonstrates small right pleural effusion. There are interstitial infiltrates. Cardioverter defibrillator is identified. Previous sternotomy. Overall these findings could be co nsistent with volume overload. Abdominal ultrasound demonstrates gallbladder sludge and material, ma rked wall thickening, mild enlargement/elongation of liver and multiple hepatic cysts. Pancreatic du ct 3 mm. Moderate right pleural effusion. ASSESSMENT: 1. Acute hypoxic respiratory failure. 2. Acute on chronic systolic heart failure. 3. Chronic obstructive pulmonary disease which was mild prior to lobectomy with possible acute exace rbation. 4. Cholecystitis, requiring cholecystectomy. PLAN: The patient is little bit volume overloaded. We will keep this in mind when we attempt to wea n him from mechanical ventilation. From a lung standpoint, the patient is stable to proceed with a s urgical procedure and is currently optimized. He is a medium risk patient for a medium risk procedur e. He understands that this entails that he has had an increased risk of having respiratory failure, requiring protracted ventilation and possibly even tracheostomy in the perioperative period. He acc epts these risks moving forward. I will be available in the perioperative time. Please minimize flu ids as the patient is minimally volume overloaded and will likely need to provide him with a couple o f dose of diuretics either before or after the procedure is completed.
--- NOTE | 2017-02-24 02:31 | PRG ---
DATE OF SERVICE: 02/23/2017 SUBJECTIVE: Seng Lorenzana is a 76-year-old gentleman for which the surgical team was consulted for cho lecystitis. Plans have been made for operative intervention tomorrow morning. Patient is n.p.o. at midnight. He localizes no complaint this evening. OBJECTIVE: VITAL SIGNS: Reviewed and stable. GENERAL: The patient is afebrile, resting in bed in no acute distress. RESPIRATORY: Breathing is nonlabored. ASSESSMENT AND PLAN: As documented in consultation note earlier today. Continue care as ordered. Luis Antonio pearsonue to monitor. To OR with Dr. Abebe in a.m.
[2017-02-24] MEDS: Carvedilol 6.25 MG TAB PO SCH ×2 (06:02→21:13)
[2017-02-24 06:38] LABS: #Eosinphils 0.1 thou/uL (0.0-0.7); #Lymphocytes 0.8 thou/uL (1.20-3.40); #Monocytes 0.8 thou/uL (0.11-0.59); #Neutrophils 7.1 thou/uL (1.40-6.50); %Basophils 0.3 % (0.0-1.0); %Eosinophils 1.1 % (0.0-10.0); %Lymphocytes 9.5 % (21.0-51.0); %Monocytes 8.9 % (0.0-10.0); %Neutrophils 80.2 % (42.0-75.0); Hemoglobin 10.7 g/dL (14.0-18.0); Mean Corpuscular HGB CONC 30.7 g/dL (32.0-36.0); Mean Corpuscular Hemoglobin 32.1 pg (27.0-31.0); Mean Platelet Volume 6.9 fL (7.4-10.4); Platelet Count 275 thou/uL (130-400); RBC Distribution Width 17.1 % (11.5-14.5); Red Blood Cell (RBC) Count 3.35 mill/uL (4.70-6.10); White Blood Cell (WBC) Count 8.8 thou/uL (4.8-10.8)
[2017-02-24 06:42] LABS: ALT (SGPT) 79 U/L (8-55); AST (SGOT) 50 U/L (5-34); Albumin 3.2 g/dL (3.4-4.8); Alkaline Phosphatase 184 U/L (40-150); Anion Gap 11 mmol/L (10-20); BUN (Urea Nitrogen) 14 mg/dL (8.4-25.7); Bilirubin, Total 0.8 mg/dL (0.2-1.2); Calc. Creatinine Clearance 56 mL/min (70-130); Calcium 9.2 mg/dL (7.8-10.44); Carbon Dioxide 27 mmol/L (23-31); Chloride 107 mmol/L (98-107); Estimated GFR-MDRD 61; Globulin 2.8 g/dL (2.4-3.5); Glucose 93 mg/dL (83-110); Potassium 3.7 mmol/L (3.5-5.1); Sodium 141 mmol/L (136-145)
[2017-02-24] MEDS ORDERED: Bupivacaine/Epinephrine 0.25% 30 ML VIAL ONE (08:46)
[2017-02-24] MEDS: Albuterol Sulfate 2.5 mg/3 ml Neb NEB SCH ×2 (09:13→11:39)
[2017-02-24] MEDS ORDERED: Glycopyrrolate 0.2 MG/ML 5 ML SYRINGE ONE (09:14)
[2017-02-24] MEDS ORDERED: PHENYLEPHRINE-NS 100 MCG/ML 10 ML SYRINGE ONE ×3 (09:14→12:59)
[2017-02-24] MEDS: Ipratropium Bromide 2.5 ml Neb NEB SCH ×3 (09:14→16:10)
[2017-02-24] MEDS ORDERED: Lidocaine 1% PF 5 ML VIAL ONE (09:14)
[2017-02-24] MEDS ORDERED: Propofol 200 MG/20 ML VIAL ONE (09:14)
[2017-02-24] MEDS: Digoxin 0.125 MG TAB PO SCH (10:05)
[2017-02-24] MEDS: Potassium Chloride 20 MEQ TAB PO SCH (10:06)
[2017-02-24] MEDS: Lisinopril 10 MG TAB PO SCH (10:06)
[2017-02-24] MEDS: Famotidine/PF 20 mg/2ml Vial SLOW IVP SCH ×2 (10:06→21:13)
[2017-02-24] MEDS: Furosemide 40 MG TAB PO SCH (10:06)
[2017-02-24] MEDS ORDERED: Fentanyl 100 MCG/2 ML VIAL ONE ×2 (10:58→13:49)
[2017-02-24] MEDS ORDERED: Albumin 5% 500 ML ONE (12:59)
[2017-02-24] MEDS ORDERED: Promethazine HCl 25 MG/ML VIAL SLOW IVP PRN (13:42)
[2017-02-24] MEDS ORDERED: Promethazine HCl 25 MG/ML VIAL IM PRN (13:42)
[2017-02-24] MEDS ORDERED: Ondansetron HCl/PF 4 MG/2 ML Vial IVP PRN (13:42)
[2017-02-24] MEDS ORDERED: Morphine 4 MG/ML VIAL SLOW IVP PRN (13:56)
[2017-02-24 14:26] LABS: #Lymphocytes 0.6 thou/uL (1.20-3.40); #Monocytes 0.5 thou/uL (0.11-0.59); #Neutrophils 6.6 thou/uL (1.40-6.50); %Basophils 0.1 % (0.0-1.0); %Eosinophils 0.4 % (0.0-10.0); %Lymphocytes 7.7 % (21.0-51.0); %Neutrophils 85.8 % (42.0-75.0); Hemoglobin 9.4 g/dL (14.0-18.0); Mean Corpuscular HGB CONC 31.4 g/dL (32.0-36.0); Mean Corpuscular Hemoglobin 32.4 pg (27.0-31.0); Platelet Count 229 thou/uL (130-400); RBC Distribution Width 16.9 % (11.5-14.5); Red Blood Cell (RBC) Count 2.89 mill/uL (4.70-6.10); White Blood Cell (WBC) Count 7.7 thou/uL (4.8-10.8)
[2017-02-24] MEDS: metroNIDAZOLE 500 MG in Premix Bag 1 BAG IVPB SCH ×2 (15:49→21:14)
--- NOTE | 2017-02-24 18:32 | PRG ---
DATE OF SERVICE: 02/24/2017 SUBJECTIVE: He just came back from the OR and Dr. Abebe did cholecystectomy. He is doing quite well . OBJECTIVE: VITAL SIGNS: His vitals are stable. GENERAL: He is answering my questions, he is somewhat drowsy, but otherwise doing quite well. LUNGS: Lungs show some bilateral mild crackles in both bases. HEART: S1, S2 normal. No S3, no S4. ABDOMEN: Soft, but tender in the right upper abdomen where the incision and the drain is in place. EXTREMITIES: No clubbing, cyanosis or edema. NEUROLOGIC: He is somewhat drowsy, but responds to my questions and he follows my commands. LABORATORY DATA: White count of 7.7, hemoglobin 9.4, hematocrit 29.8, platelet count is 229. Normal chemistry except for AST which is 50, ALT 79 and alkaline phosphatase 184. His 3 sets of troponins came back at 0.045, 0.036, and 0.039 respectively. IMPRESSION: 1. Acute hypoxemic respiratory failure. 2. Cholecystitis requiring cholecystectomy status post. 3. Acute on chronic systolic heart failure. 4. Chronic obstructive pulmonary disease. 5. Chronic atrial fibrillation. 6. Hypertension. 7. History of squamous cell carcinoma of the lung treated with lobectomy. 8. Automatic implantable cardioverter defibrillator. 9. Dyslipidemia. PLAN: He is going to stay overnight at Intensive Care Unit because of high risk. He has presented w ith and tomorrow he will be moved to telemetry bed. His medications are restarted except for Plavix and warfarin. The patient is going to continue his metronidazole. He is put on after the surgery an d he will be restarted on his blood thinners tomorrow.
[2017-02-24] MEDS: Acetaminophen 500 MG TAB PO SCH ×2 (18:38→23:30)
--- NOTE | 2017-02-24 18:43 | OP ---
DATE OF OPERATION: 02/24/2017. PREOPERATIVE DIAGNOSIS: Acute on chronic cholecystitis. POSTOPERATIVE DIAGNOSIS: Acute on chronic cholecystitis. OPERATION PERFORMED: Laparoscopic cholecystectomy. SURGEON: Pierce Abebe DO ANESTHESIA: General endotracheal. ESTIMATED BLOOD LOSS: 200 mL. FLUIDS GIVEN: 800 mL crystalloids, 500 mL 0.5% albumin. COUNTS: Sponge and instrument counts are certified as correct x2. COMPLICATIONS: None apparent at the time operation. INDICATIONS FOR OPERATION: This is a 76-year-old man with history of significant cardiomyopathy rece ntly, status post right lower lobe lobectomy for squamous cell carcinoma of the lung. The patient was admitted 2 months previously for acute cholecystitis. Due to significant comorbidity , cholecystostomy was elected. Cholecystostomy was discontinued 2 weeks ago. The patient was re-admitted 3 days ago with recurrent epigastric to right upper quadrant abdominal pa in. Acute on chronic cholecystitis is diagnosed. The patient was given options including conservative ma nagement, but elected to proceed with laparoscopic cholecystectomy with inherent risks. Findings are consistent with markedly thick-walled and inflamed gallbladder in the usual anatomic loc ation. The fundus of the gallbladder was ruptured with some bile and gallstones walled off by omentu m. The remainder of the gallbladder was completely encased by omental adhesions. DESCRIPTION OF PROCEDURE: An informed consent was obtained from the patient, who was brought to the operating room and placed in supine position. Following general anesthesia, abdomen was sterilely pr epped and draped in the usual fashion. The skin below the umbilicus was infiltrated with 0.25% Saadia ine with epinephrine. A small curvilinear infraumbilical incision was made using an 11 scalpel. Umb ilical stalk was grasped with Vanna and elevated. Veress needle was inserted through the incision t hrough which the abdomen was insufflated with 3 liters of CO2 gas. Intraabdominal pressure noted 1 m mHg. Following abdominal insufflation, Veress needle was removed and a 5-mm trocar was introduced us ing a Visiport under laparoscopy. Laparoscopy confirmed proper placement of the port, no injuries to underlying structures. Additional laparoscopy reveals gallbladder in the usual anatomic location, c ompletely encased by omental adhesions. Under direct laparoscopy, a 12-mm epigastric and two 5-mm right lateral subcostal ports were placed a fter the overlying skin was infiltrated with 0.25% Marcaine with epinephrine and appropriate incision s made. I then used a [place] dissector with cautery to take down omental adhesions to reveal the f undus of the gallbladder, which was ruptured with some dried bile and stone, encased by some omental adhesions. Prestige grasper was then introduced through the right lateral subcostal port grasping th e fundus of the gallbladder, which was elevated cephalad. Omental adhesions were dissected free from the remainder of the gallbladder meticulously with fair amount of blood loss due to significant adhe sions involving the liver and gallbladder. A second Prestige grasper was introduced through the [facility] t medial subcostal port grasping the Ivan's pouch, which was retracted laterally. A cystic duct was dissected free from surrounding structures at the triangle of Calot. The duct was divided betwee n clips applying two clips proximally and one clip at the junction of the cystic duct and gallbladder . The cystic artery was also dissected free from surrounding structures and divided between clips in a similar fashion. Gallbladder itself was removed from the liver bed using cautery. Gallbladder fossa oozed with venous blood extensively. Multiple attempts to achieve hemostasis using cautery failed a nd we then used Rickie and 1 x 2 inch piece of Fibrillar to gain reasonable hemostasis. Operative si te was irrigated with saline. Finding no other pathology, laparoscopy was terminated. A #19 Timbo d rain was introduced into the subhepatic space and allowed to exit the abdominal cavity through the [facility] lateral subcostal port. The drain was secured to intraabdominal wall using 2-0 silk suture. Fas ashwin of the epigastric port site was closed using 0 Vicryl suture and Endo closure device under laparo scopy. The abdomen was desufflated. All ports and instruments removed and accounted for. Skin inci sions were closed using 4-0 Monocryl suture in subcuticular fashion. Dermabond was applied over the incisions. The patient tolerated the operation without any apparent complication and was returned to recovery ro in satisfactory condition.
[2017-02-24] MEDS ORDERED: predniSONE 20 MG TAB PO SCH (19:15)
--- NOTE | 2017-02-24 20:19 | PRG ---
DATE OF SERVICE: 02/24/2017 SERVICE: Pulmonary Medicine. INTERVAL HISTORY: The patient is doing outstanding from a respiratory standpoint. He is on a little bit of oxygen. His saturations are 98%. He is breathing comfortably. He has some abdominal discom fort and hiccups. Outside of this, he has no specific complaints. PHYSICAL EXAMINATION: VITAL SIGNS: Afebrile, pulse 98, blood pressure 134/69, respirations 20, saturation 98% on room air. GENERAL: The patient is awake, alert, in no apparent distress. LUNGS: Excellent air entry with no prolonged expiratory phase or wheezing. HEART: Normal rate, regular. ABDOMEN: Soft. Distended. Bowel sounds are positive. There is tenderness to palpation, but no shania ound or guarding. GENITOURINARY: No Almazan catheter. NEUROLOGIC: Grossly nonfocal. LABORATORY DATA: WBC 7.7, hemoglobin 9.4, platelets 229,000. INR 1.5. Basic metabolic profile and liver function studies are otherwise unremarkable. AST and ALT are down trending. Alkaline phosphat ase is also returning to normal. Cardiac enzymes are stable at 0.039. ASSESSMENT: 1. Acute hypoxic respiratory failure. 2. Chronic obstructive pulmonary disease, mild with no acute exacerbation. 3. Acute on chronic systolic heart failure. 4. Cholecystitis, status post cholecystectomy, postop day #0. PLAN: The patient is doing fine from a respiratory standpoint. He remains touch volume overloaded. Tomorrow morning once he clears his inflammatory profile, we will provide him with a dose of Lasix. Nebulized medications and low dose steroids will be continued. Antibiotics per surgery. Pulmonary Critical Care will continue to follow while he remains in this location.
[2017-02-24] MEDS: traMADol HCl 50 MG TAB PO PRN (21:16)
--- NOTE | 2017-02-25 | PRG ---
DATE OF SERVICE: 02/24/2017 SUBJECTIVE: Seng Lorenzana is a 76-year-old male status post laparoscopic cholecystectomy. The patient was taken to CCU for closer monitoring postoperatively. He did receive 1 unit of platelets, given h is recent use of Plavix. The patient has remained hemodynamically stable. He states his pain is imp roved postoperatively. He vocalized no other complaint. OBJECTIVE: VITAL SIGNS: Reviewed and stable. The patient is afebrile. GENERAL: Resting in bed in no acute distress. ABDOMEN: Soft, mildly tender, but nondistended without signs of guarding or rigidity. RESPIRATORY: Breathing is nonlabored. ASSESSMENT AND PLAN: As documented in daily progress note. Continue care as ordered. Continue to m onitor.
[2017-02-25] MEDS: traMADol HCl 50 MG TAB PO PRN ×3 (04:10→20:56)
[2017-02-25 04:38] LABS: ALT (SGPT) 87 U/L (8-55); AST (SGOT) 74 U/L (5-34); Albumin 3.3 g/dL (3.4-4.8); Alkaline Phosphatase 135 U/L (40-150); Anion Gap 12 mmol/L (10-20); BUN (Urea Nitrogen) 19 mg/dL (8.4-25.7); Bilirubin, Direct 0.3 mg/dL (0.1-0.3); Bilirubin, Total 0.6 mg/dL (0.2-1.2); Calc. Creatinine Clearance 60 mL/min (70-130); Calcium 8.9 mg/dL (7.8-10.44); Carbon Dioxide 25 mmol/L (23-31); Chloride 107 mmol/L (98-107); Estimated GFR-MDRD 66; Glucose 106 mg/dL (83-110); Phosphorus 3.5 mg/dL (2.3-4.7); Potassium 4.4 mmol/L (3.5-5.1); Protein, Total 5.9 g/dL (5.8-8.1); Sodium 140 mmol/L (136-145)
[2017-02-25 05:01] LABS: Band 5 % (5-11); Lymphocytes 7 % (21-51); MDiff Complete? YES; Mean Corpuscular HGB CONC 30.8 g/dL (32.0-36.0); Mean Corpuscular Hemoglobin 32.1 pg (27.0-31.0); Neutrophil 88 % (42-75); Platelet Count 262 thou/uL (130-400); RBC Distribution Width 16.9 % (11.5-14.5); Red Blood Cell (RBC) Count 3.11 mill/uL (4.70-6.10); White Blood Cell (WBC) Count 8.7 thou/uL (4.8-10.8)
[2017-02-25] MEDS: Acetaminophen 500 MG TAB PO SCH ×4 (05:33→23:05)
[2017-02-25] MEDS: metroNIDAZOLE 500 MG in Premix Bag 1 BAG IVPB SCH ×3 (05:34→21:05)
[2017-02-25] MEDS ORDERED: Furosemide 40 MG/4 ML VIAL SLOW IVP SCH (07:00)
[2017-02-25] MEDS ORDERED: predniSONE 20 MG TAB PO SCH (08:00)
[2017-02-25] MEDS ORDERED: Sterile Water 10 ML ONE (08:28)
[2017-02-25] MEDS: Famotidine/PF 20 mg/2ml Vial SLOW IVP SCH ×2 (08:30→21:05)
[2017-02-25] MEDS: Carvedilol 6.25 MG TAB PO SCH ×2 (08:30→21:04)
[2017-02-25] MEDS: Digoxin 0.125 MG TAB PO SCH (08:31)
[2017-02-25] MEDS: Lisinopril 10 MG TAB PO SCH (08:31)
[2017-02-25] MEDS: Potassium Chloride 20 MEQ TAB PO SCH (08:31)
[2017-02-25] MEDS ORDERED: Tamsulosin HCl 0.4 MG CAP PO SCH (11:45)
[2017-02-25] MEDS ORDERED: Sodium Chloride 0.9% 250 ML 250 ML IVPB SCH (15:15)
--- NOTE | 2017-02-25 15:46 | PDOC.PN ---
- Subjective Encounter Start Date: 02/25/17 Encounter Start Time: 10:40 Pt seen for followup re; acute cholecystitis. Reports pain better. No fevers or chills. - Objective Resuscitation Status: Resuscitation Status FULL:Full Resuscitation MAR Reviewed: Yes Vital Signs & Weight: Vital Signs (12 hours) Temp Pulse Resp BP Pulse Ox 02/25/17 12:00 97.8 F 97 02/25/17 11:59 69 20 95 02/25/17 08:31 78 118/66 02/25/17 08:30 76 118/66 02/25/17 08:00 97.6 F 78 16 95 02/25/17 06:25 76 20 98 02/25/17 04:00 98.5 F Most Recent Monitor Data Heart Rate from ECG 60 NIBP 101/56 NIBP BP-Mean 63 Respiration from ECG 15 SpO2 96 I&O: 02/24/17 02/25/17 02/26/17 06:59 06:59 06:59 Intake Total 1010 740 Output Total 125 1150 Balance 885 -410 Result Diagrams: 02/26/17 05:10 02/26/17 05:10 EKG Reviewed by me: Yes (Tele: raoms childress) Phys Exam - Physical Examination Constitutional: NAD HEENT: moist MMs Neck: supple Respiratory: clear to auscultation bilateral Cardiovascular: RRR Gastrointestinal: soft Drain+, dressing+ Musculoskeletal: no edema Neurological: moves all 4 limbs Psychiatric: normal affect Dx/Plan (1) Acute cholecystitis Code(s): K81.0 - ACUTE CHOLECYSTITIS Status: Acute Comment: s/p cholecystectomy (2) Atrial fibrillation Code(s): I48.91 - UNSPECIFIED ATRIAL FIBRILLATION Status: Chronic Qualifiers: Atrial fibrillation type: chronic Qualified Code(s): I48.2 - Chronic atrial fibrillation (3) CAD (coronary artery disease) Code(s): I25.10 - ATHSCL HEART DISEASE OF [place] CORONARY ARTERY W/O ANG PCTRS Status: Chronic Qualifiers: Coronary Disease-Associated Artery/Lesion type: [place] artery [place] vs. transplanted heart: [place] heart Associated angina: without angina Qualified Code(s): I25.10 - Atherosclerotic heart disease of [place] coronary artery without angina pectoris (4) COPD (chronic obstructive pulmonary disease) Status: Chronic Qualifiers: COPD type: chronic bronchitis (5) Dyslipidemia Code(s): E78.5 - HYPERLIPIDEMIA, UNSPECIFIED Status: Chronic (6) Hypertension Code(s): I10 - ESSENTIAL (PRIMARY) HYPERTENSION Status: Chronic Qualifiers: Hypertension type: essential hypertension Qualified Code(s): I10 - Essential (primary) hypertension - Plan continue antibiotics, PT/OT, out of bed/ambulate * . s/p cholecystectomy. CAD stable. Chronic a. fib, stable. Review of Systems - Review of Systems Respiratory: negative: Cough, Dry, Shortness of Breath, Hemoptysis, SOB with Excertion, Pleuritic Pain, Sputum, Wheezing Cardiovascular: negative: chest pain, palpitations, orthopnea, paroxysmal nocturnal dyspnea, edema, light headedness - Medications/Allergies Allergies/Adverse Reactions: Allergies Allergy/AdvReac Type Severity Reaction Status Date / Time No Known Allergies Allergy Verified 12/01/16 15:34 Medications: Current Medications Acetaminophen (Tylenol) 1,000 mg PO Q6HR [facility] Last Admin: 02/25/17 12:12 Dose: 1,000 mg Albuterol/Ipratropium (Duoneb) 3 ml NEB [id number] [facility] Last Admin: 02/25/17 11:59 Dose: 3 ml Carvedilol (Coreg) 6.25 mg PO BID [facility] Digoxin (Lanoxin) 0.125 mg PO DAILY [facility] Last Admin: 02/25/17 08:31 Dose: 0.125 mg Famotidine (Pepcid) 20 mg SLOW IVP Q12HR [facility] Last Admin: 02/25/17 08:30 Dose: 20 mg Levofloxacin 500 mg/ Device 100 mls @ 100 mls/hr IVPB 0600 [facility] Last Admin: 02/25/17 05:34 Dose: 100 mls Metronidazole 500 mg/ Device 100 mls @ 100 mls/hr IVPB Q8HR [facility] Last Admin: 02/25/17 13:56 Dose: 100 mls Sodium Chloride (Normal Saline 0.9% 250 Ml Bag) 250 mls @ 0 mls/hr IVPB NOW [facility] PRN Reason: As Directed Stop: 02/25/17 16:15 Last Admin: 02/25/17 14:00 Dose: 250 mls Isosorbide Mononitrate (Imdur) 60 mg PO DAILY [facility] Last Admin: 02/25/17 08:31 Dose: 60 mg Melatonin (Melatonin) 6 mg PO HS PRN PRN Reason: Insomnia Last Admin: 02/23/17 21:51 Dose: 6 mg Morphine Sulfate (Morphine) 4 mg SLOW IVP Q4H PRN PRN Reason: Breakthrough Pain Ondansetron HCl (Zofran) 4 mg IVP Q6H PRN PRN Reason: Nausea/Vomiting Last Admin: 02/23/17 21:54 Dose: 4 mg Potassium Chloride (K-Dur) 20 meq PO DAILY [facility] Last Admin: 02/25/17 08:31 Dose: 20 meq Prednisone (Prednisone) 20 mg PO QAM[facility] Stop: 02/28/17 08:01 Last Admin: 02/25/17 07:42 Dose: 20 mg Tamsulosin HCl (Flomax) 0.4 mg PO HS [facility] Tramadol HCl (Ultram) 50 mg PO Q6H PRN PRN Reason: Moderate Pain (4-6) Last Admin: 02/25/17 04:10 Dose: 50 mg Tramadol HCl (Ultram) 100 mg PO Q6H PRN PRN Reason: Severe Pain (7-10) Last Admin: 02/25/17 08:31 Dose: 100 mg
--- NOTE | 2017-02-25 16:34 | PRG ---
DATE OF SERVICE: 02/25/2017 SUBJECTIVE: Mr. Lorenzana is a 76-year-old man with a history of significant cardiomyopathy. The patien t is postop day #1, status post an uneventful laparoscopic cholecystectomy. Overnight, he has had no hemodynamic issues except for a brief period of hypotension this morning, which responded to 250 mL bolus of normal saline. The patient is awake and alert, reporting adequate pain control. He has rem ained afebrile since surgery. Urinary output is adequate. OBJECTIVE: VITAL SIGNS: Today includes blood pressure 107/57, pulse is 60, respiratory rate is 15. Maximum tem perature in the last 24 hours is 97.7 degrees Fahrenheit. Oxygen saturation is 97% on room air. HEENT: Reveals normocephalic and atraumatic. He has no scleral icterus present. HEART: Reveals regular rate and rhythm on pacemaker. LUNGS: Clear to auscultation bilaterally. Breathing is regular and unlabored. ABDOMEN: Soft with incisional tenderness to palpation. No gross rebound tenderness present. Jackso n-Cesar drain is in place and has returned 125 mL since placement. PERTINENT LABORATORY FINDINGS: Today include CBC with 8700 white blood cells, hemoglobin and hematoc rit are stable at 10.0 and 32.4 respectively. Platelet count is 262,000. Metabolic profile: Sodium 140, potassium is 4.4, chloride is 107, bicarbonate 25, BUN 19, creatinine is 1.09, glucose is 106, magnesium is 2.0, phosphorus is 3.5, AST and ALT are 74 and 87 respectively. Total bilirubin is norm al at 0.6. IMPRESSION AND PLAN: 1. Postoperative day #1, status post laparoscopic cholecystectomy. 2. The patient is hemodynamically stable for transfer to general surgical floor. 3. We will increase diet and activity as tolerated.
[2017-02-25] MEDS: Ondansetron HCl/PF 4 MG/2 ML Vial IVP PRN (20:57)
[2017-02-25] MEDS: Tamsulosin HCl 0.4 MG CAP PO SCH (21:05)
--- NOTE | 2017-02-25 21:18 | PRG ---
DATE OF SERVICE: 02/25/2017 SERVICE: Pulmonary Medicine. INTERVAL HISTORY: The patient is really doing well from a respiratory standpoint. He has been weane d down to room air. He denies any current fevers, chills, nausea, vomiting or diarrhea. Otherwise, he has a little bit of abdominal discomfort, but he is already tolerating p.o. and passing gas. PHYSICAL EXAMINATION: VITAL SIGNS: Afebrile, pulse 62, blood pressure 101/56, respirations 18, saturation 95% on room air. GENERAL: Patient is awake, alert, no apparent distress. LUNGS: Decent air entry. Minimal prolonged expiratory phase is present. No significant wheezing. Minimal crackles are present. HEART: Normal rate, regular. ABDOMEN: Soft, nontender, nondistended, bowel sounds positive. MUSCULOSKELETAL: No cyanosis or clubbing. 1+ pitting is actually improved a trace. GENITOURINARY: No Almazan catheter in place. NEUROLOGIC: Grossly nonfocal. LABORATORY DATA: WBC 8.7, hemoglobin 10.0, platelets 262,000. Basic metabolic profile, liver functi on studies are essentially unremarkable. Alkaline phosphatase is down trending. ASSESSMENT: 1. Acute hypoxic respiratory failure, resolved. 2. Chronic obstructive pulmonary disease, mild with no acute exacerbation. 3. Acute on chronic systolic heart failure. 4. Cholecystitis. 5. Status post cholecystectomy. 6. Postop day #1. PLAN: The patient is doing great from a respiratory standpoint. At this point, he has no further in patient requirements for Pulmonary Critical Care opinion. As such, I will sign off. He will follow up with me in clinic as previously directed. He actually had an appointment for Sunday, if it is reasonable for him reschedule that for 1 to 2 weeks out to allow him to heel.
--- NOTE | 2017-02-25 23:46 | PRG ---
DATE OF SERVICE: 02/25/2017 SUBJECTIVE: Seng Lorenzana is a 76-year-old male, postop day #1 status post laparoscopic cholecystectom y. The patient was briefly hypotensive this a.m. and received a small fluid bolus. Otherwise, the p atient has done well throughout the day. Upon my evaluation, the patient reports some nausea, but no vomiting. He states the pain has been relatively well controlled. The patient has had some urinary retention earlier today. His Flomax was restarted by the day shift team. OBJECTIVE: GENERAL: The patient is afebrile, sitting in a chair, out of bed, in no acute distress. LUNGS: Breathing is nonlabored. He is on room air. ABDOMEN: Soft with mild generalized tenderness. There are no signs of peritonitis. No guarding or rigidity. BLANCA drain with serosanguineous drainage noted. ASSESSMENT AND PLAN: As documented in daily progress note. Zofran p.r.n. for nausea. A.m. labs. A ctivity as tolerated. Continue to monitor.
[2017-02-26] MEDS: traMADol HCl 50 MG TAB PO PRN ×3 (02:50→22:16)
[2017-02-26] MEDS: Acetaminophen 500 MG TAB PO SCH ×4 (05:16→22:15)
[2017-02-26] MEDS: metroNIDAZOLE 500 MG in Premix Bag 1 BAG IVPB SCH ×3 (05:18→22:15)
[2017-02-26 06:05] LABS: Hemoglobin 9.1 g/dL (14.0-18.0); Mean Corpuscular HGB CONC 30.7 g/dL (32.0-36.0); Mean Corpuscular Hemoglobin 31.8 pg (27.0-31.0); Mean Platelet Volume 6.9 fL (7.4-10.4); Platelet Count 263 thou/uL (130-400); Red Blood Cell (RBC) Count 2.87 mill/uL (4.70-6.10); White Blood Cell (WBC) Count 15.8 thou/uL (4.8-10.8)
[2017-02-26 06:06] LABS: Band 3 % (5-11); Lymphocytes 3 % (21-51); MDiff Complete? YES; Metamyelocyte 1 % (0-0); Monocytes 3 % (0-10); Neutrophil 90 % (42-75)
[2017-02-26 06:48] LABS: Anion Gap 11 mmol/L (10-20); BUN (Urea Nitrogen) 31 mg/dL (8.4-25.7); Calc. Creatinine Clearance 50 mL/min (70-130); Calcium 8.8 mg/dL (7.8-10.44); Carbon Dioxide 27 mmol/L (23-31); Chloride 104 mmol/L (98-107); Estimated GFR-MDRD 54; Glucose 127 mg/dL (83-110); Magnesium 1.9 mg/dL (1.6-2.6); Phosphorus 2.2 mg/dL (2.3-4.7); Potassium 3.9 mmol/L (3.5-5.1); Sodium 138 mmol/L (136-145)
[2017-02-26] MEDS: Digoxin 0.125 MG TAB PO SCH (08:36)
[2017-02-26] MEDS: Potassium Chloride 20 MEQ TAB PO SCH (08:37)
[2017-02-26] MEDS: Carvedilol 6.25 MG TAB PO SCH ×2 (08:37→22:14)
[2017-02-26] MEDS: Famotidine 20 MG TAB PO SCH ×2 (08:44→22:15)
[2017-02-26] MEDS ORDERED: Warfarin Sodium 2 MG TAB PO SCH (17:00)
--- NOTE | 2017-02-26 17:28 | PRG ---
DATE OF SERVICE: 02/26/2017 SUBJECTIVE: The patient is status post laparoscopic cholecystectomy, we are awaiting return of bowel function. Last night the patient did have a Almazan catheter placed after multiple episodes of urinar y retention in light of starting Flomax. Otherwise, the patient has not had any issues. OBJECTIVE: VITAL SIGNS: Temperature is 98.2, heart rate 103, respirations 16, blood pressure 111/66. GENERAL: Patient is resting comfortably in bed. He is alert and oriented x3. His [place] coma scal e is 15. HEENT: Unremarkable. LUNGS: Clear to auscultation bilaterally. HEART: Regular rate with irregular rhythm. ABDOMEN: Soft with minimal tenderness. BLANCA drain is intact with a total output of 118. LABORATORY FINDINGS: White blood cell count 15.8, hemoglobin 9.1, hematocrit 29.8, platelets 263. S odium 138, potassium 3.9, chloride 104, CO2 of 27, BUN 31, creatinine 1.30, glucose 27, magnesium 1.9 , phosphorus 2.2. There are no radiographs to review this morning. ASSESSMENT AND PLAN: 1. Status post laparoscopic cholecystectomy. 2. Significant cardiomyopathy. Plan will be to continue supportive care. We will discontinue the Almazan catheter this afternoon to s ee if the patient is able to void on his own and await bowel function return. Otherwise, will remain on current course in conjunction with the primary team's management.
--- NOTE | 2017-02-26 21:40 | PRG ---
DATE OF SERVICE: 02/26/2017 SUBJECTIVE: Seng Lorenzana is a 76-year-old male status post laparoscopic cholecystectomy. Currently, awaiting return of bowel function. The patient's Almazan was removed earlier today, but he has been un able to void. The patient states pain is controlled and he feels better than he did yesterday. Voca lized no complaints this evening. The patient specifically denied any nausea or vomiting. OBJECTIVE: VITAL SIGNS: Reviewed and stable. Resting in bed in no acute distress. LUNGS: Breathing is nonlabored. ABDOMEN: Soft without signs of guarding or rigidity. ASSESSMENT AND PLAN: As documented in daily progress note. Continue care as ordered. Continue to m onitor.
[2017-02-26] MEDS: Tamsulosin HCl 0.4 MG CAP PO SCH (22:15)
[2017-02-27] MEDS: traMADol HCl 50 MG TAB PO PRN (05:54)
[2017-02-27] MEDS: Acetaminophen 500 MG TAB PO SCH (05:54)
[2017-02-27] MEDS: metroNIDAZOLE 500 MG in Premix Bag 1 BAG IVPB SCH (05:55)
[2017-02-27] MEDS ORDERED: Bisacodyl 10 MG SUPP PR PRN (08:24)
[2017-02-27] MEDS ORDERED: Polyethylene Glycol 3350 17 GM Packet PO SCH (09:00)
[2017-02-27] MEDS ORDERED: Senokot S 8.6-50 MG TAB PO SCH (09:00)
[2017-02-27] MEDS ORDERED: Enoxaparin Sodium 40 MG/0.4 ML SYRINGE SC SCH (09:00)
--- NOTE | 2017-02-27 09:04 | PDOC.PN ---
- Subjective Encounter Start Date: 02/26/17 Encounter Start Time: 19:00 Patient seen and examined on 02/27/16. Some abd discomfort. Poor appetite. No overnight events - Objective Resuscitation Status: Resuscitation Status FULL:Full Resuscitation Vital Signs & Weight: Vital Signs (12 hours) Temp Pulse Resp BP Pulse Ox 02/27/17 04:09 91 L 02/27/17 00:57 96 18 96 02/26/17 23:46 98.5 F 91 16 139/79 96 Most Recent Monitor Data Heart Rate from ECG 60 NIBP 101/56 NIBP BP-Mean 63 Respiration from ECG 15 SpO2 96 I&O: 02/26/17 02/27/17 02/28/17 06:59 06:59 06:59 Intake Total 1640 1000 Output Total 2043 695 Balance -403 305 Result Diagrams: 02/26/17 05:10 02/26/17 05:10 Phys Exam - Physical Examination Constitutional: NAD Respiratory: no wheezing, no rhonchi Cardiovascular: RRR, no rub Gastrointestinal: soft, positive bowel sounds mild gen tenderness Musculoskeletal: no edema Neurological: moves all 4 limbs Dx/Plan - Plan DVT proph w/SCDs IMPRESSION: 1. Acute Cholecystitis s/p Lap cholecystectomy 02/24 2. Chronic systolic heart failure s/p AICD 3. CAD s/p stents/CABG 4. COPD/HTN/HLD/h/o lung cancer s/p lobectomy/Afib/Elevated troponins prob due to demand ischemia PLAN: * Cont to monitor * Surg/Cardio/Pulm following * Cont current meds as below including Coreg/Digoxin/Imdur * On Atbx Review of Systems - Review of Systems Cardiovascular: negative: chest pain, palpitations, orthopnea, paroxysmal nocturnal dyspnea, edema, light headedness, other Gastrointestinal: negative: Nausea, Vomiting, Abdominal Pain, Diarrhea, Constipation, Melena, Hematochezia, Other - Medications/Allergies Allergies/Adverse Reactions: Allergies Allergy/AdvReac Type Severity Reaction Status Date / Time No Known Allergies Allergy Verified 12/01/16 15:34 Medications: Current Medications Acetaminophen (Tylenol) 1,000 mg PO Q6HR [facility] Last Admin: 02/27/17 05:54 Dose: 1,000 mg Albuterol/Ipratropium (Duoneb) 3 ml NEB [id number] [facility] Last Admin: 02/27/17 00:57 Dose: 3 ml Bisacodyl (Dulcolax) 10 mg [place] DAILYPRN PRN PRN Reason: Constipation Carvedilol (Coreg) 6.25 mg PO BID [facility] Last Admin: 02/26/17 22:14 Dose: 6.25 mg Digoxin (Lanoxin) 0.125 mg PO DAILY [facility] Last Admin: 02/26/17 08:36 Dose: 0.125 mg Enoxaparin Sodium (Lovenox) 40 mg SC 0900 [facility] Famotidine (Pepcid) 20 mg PO BID [facility] Last Admin: 02/26/17 22:15 Dose: 20 mg Levofloxacin 500 mg/ Device 100 mls @ 100 mls/hr IVPB 0600 [facility] Last Admin: 02/27/17 05:55 Dose: 100 mls Metronidazole 500 mg/ Device 100 mls @ 100 mls/hr IVPB Q8HR [facility] Last Admin: 02/27/17 05:55 Dose: 100 mls Isosorbide Mononitrate (Imdur) 60 mg PO DAILY [facility] Last Admin: 02/26/17 08:37 Dose: 60 mg Melatonin (Melatonin) 6 mg PO HS PRN PRN Reason: Insomnia Last Admin: 02/23/17 21:51 Dose: 6 mg Ondansetron HCl (Zofran) 4 mg IVP Q6H PRN PRN Reason: Nausea/Vomiting Last Admin: 02/25/17 20:57 Dose: 4 mg Polyethylene Glycol (Miralax) 17 gm PO DAILY [facility] Potassium Chloride (K-Dur) 20 meq PO DAILY [facility] Last Admin: 02/26/17 08:37 Dose: 20 meq Senna/Docusate Sodium (Senokot S) 1 tab PO BID [facility] Tamsulosin HCl (Flomax) 0.4 mg PO HS [facility] Last Admin: 02/26/17 22:15 Dose: 0.4 mg Tramadol HCl (Ultram) 50 mg PO Q6H PRN PRN Reason: Moderate Pain (4-6) Last Admin: 02/25/17 20:56 Dose: 50 mg Tramadol HCl (Ultram) 100 mg PO Q6H PRN PRN Reason: Severe Pain (7-10) Last Admin: 02/27/17 05:54 Dose: 100 mg Warfarin Sodium (Coumadin) 4 mg PO 1700 [facility] Last Admin: 02/26/17 17:34 Dose: 4 mg
[2017-02-27] MEDS: Famotidine 20 MG TAB PO SCH (09:17)
[2017-02-27] MEDS: Potassium Chloride 20 MEQ TAB PO SCH (09:17)
[2017-02-27] MEDS: Carvedilol 6.25 MG TAB PO SCH (09:18)
[2017-02-27] MEDS: Digoxin 0.125 MG TAB PO SCH (09:18)
[2017-02-27 13:47] VITALS: BP 151/83; TEMP 98
--- NOTE | 2017-02-27 15:18 | DIS ---
DATE OF DISCHARGE: 02/27/2017 DISCHARGE DISPOSITION: Home with [facility]. ALLERGIES: No known drug allergies. FOLLOWUP: Follow up with primary care physician Dr. Jane Ordonez in 1 week. Follow up with Dr. Susana Abebe, General Surgery, as scheduled. INPATIENT CONSULTANTS: 1. General Surgery, Dr. Abebe. 1. Cardiology, Dr. Naun Solomon. 2. Pulmonary, Dr. Leal The patient was seen and examined on the day of discharge, denies any new complaints. No chest pain, shortness of breath or palpitations. BRIEF HOSPITAL COURSE: The patient is a 76-year-old male with chronic systolic heart failure, ejecti on fraction 25-30%, hypertension, COPD with recent cholecystitis managed with cholecystostomy tube, p resented to the hospital with abdominal pain. Please refer to the history and physical dated any 06/2017 for further details. The patient was admitted to the hospital with the diagnosis of acute cholecystitis. After clearance from Cardiology and Pulmonary. He underwent laparoscopic cholecystectomy on 02/24/2017. He was tao marcus in the Intermediate Care Unit postoperatively. He has been cleared by General Surgery for discha mir. FINAL DIAGNOSES: 1. Acute cholecystitis, status post laparoscopic cholecystectomy. 2. Chronic systolic heart failure, status post AICD. 3. Coronary artery disease, status post stent placement. 4. History of coronary artery bypass grafting. 5. Chronic obstructive pulmonary disease. 6. Hypertension. 7. Hyperlipidemia. 8. History of lung cancer, status post lobectomy. 9. History of atrial fibrillation and left atrial thrombus on anticoagulation. 10. Elevated troponins in the indeterminate range secondary to demand ischemia. DISCHARGE MEDICATIONS: Albuterol nebulization 4 times a day, Lipitor 40 mg at bedtime, carvedilol 12 .5 mg b.i.d., Plavix 75 mg daily, digoxin 125 mcg daily, Cardizem extended release 240 mg daily, Lasi x 40 mg daily, ipratropium nebulization as directed. Imdur ER 60 mg daily, Levaquin 500 mg daily #5, lisinopril 10 mg daily. Flagyl 500 mg #15, potassium chloride 20 mEq daily, tramadol as needed, Cou madin 4 mg daily. The patient will require daily INRs while on Levaquin. SIGNIFICANT LABORATORIES: Maximum troponin 0.045. CBC on admission showed WBC of 12.3 with 85.8% neutrophils. Creatinine on the day of discharge is 1. 3. Plan of care was discussed with the patient in detail. He stated understanding. Total time coordinating the discharge of this patient was 35 minutes.
== END 2017-02-27 13:54 | disposition home health service (06) | DRG 417 ==
LOC: ERS 00:21 → ERHOLD 03:35 → SURG B 12:26 → CCU 02-24 15:34 → SURG A 02-25 16:13
PROVIDERS: ADMIT Internal Medicine; ATTEND Internal Medicine
PROC: 0FT44ZZ Resection of Gallbladder, Percutaneous Endoscopic Approach (ICD-10-PCS; principal; 2017-02-24)
PROC: 30233R1 Transfusion of Nonautologous Platelets into Peripheral Vein, Percutaneous Approach (ICD-10-PCS; 2017-02-24)
DX: K81.2 Acute cholecystitis with chronic cholecystitis (principal); J96.01 Acute respiratory failure with hypoxia; I50.23 Acute on chronic systolic (congestive) heart failure; I95.9 Hypotension, unspecified; I24.8 Other forms of acute ischemic heart disease; I25.810 Atherosclerosis of coronary artery bypass graft(s) without angina pectoris; I11.0 Hypertensive heart disease with heart failure; I48.0 Paroxysmal atrial fibrillation; J44.9 Chronic obstructive pulmonary disease, unspecified; Z95.1 Presence of aortocoronary bypass graft; E78.5 Hyperlipidemia, unspecified; Z85.118 Personal history of other malignant neoplasm of bronchus and lung; Z95.810 Presence of automatic (implantable) cardiac defibrillator; Z95.5 Presence of coronary angioplasty implant and graft; Z87.891 Personal history of nicotine dependence; Z79.01 Long term (current) use of anticoagulants; Z90.2 Acquired absence of lung [part of]; I25.5 Ischemic cardiomyopathy; R33.8 Other retention of urine
CPT/HCPCS: 36415; 36430; 71045; 76700; 80048; 80053; 80076; 82553; 83690; 83735; 84100; 84484; 85025; 85576; 85610; 86850; 86900; 86901; 88304; 93005; 94640; 96361; 96365; 96375; 96376; A4216; G8978-GP-CH; G8979-GP-CH; G8980-GP-CH; J1642; J1650; J1940; J1956; J2001; J2270; J2405; J2704; J3010; J7050; J7506; J7611; J7620; J7644; P9035; P9045; S0028

== ENCOUNTER → 2017-06-28 | Day surgery (SDC) | payer MEDICARE ==
[2017-06-27 14:00] VITALS: BMI 24.0
[~2017-06-28] MED LIST: DOPamine 400 MG/D5W 250 ML 250 ML ONE; Fentanyl 100 MCG/2 ML VIAL ONE; Heparin 10,000 UNITS/1 ML VIAL ONE; Ketamine 50 MG/ML VIAL ONE; Lidocaine 1% (PF) 30 ML VIAL ONE; Midazolam HCl 2 mg/2 ml Vial ONE; PROPOFOL 20 ML ONE; PROPOFOL 200 MG/20 ML VIAL ONE; Propofol 1,000 MG/100 ML VIAL IV ONE
[2017-06-28 08:49] LABS: Hemoglobin 13.3 g/dL (14.0-18.0); Mean Corpuscular HGB CONC 31.9 g/dL (32.0-36.0); Mean Corpuscular Hemoglobin 30.4 pg (27.0-31.0); Mean Corpuscular Volume 95.2 fl (80.0-94.0); Platelet Count 220 thou/uL (130-400); Red Blood Cell (RBC) Count 4.39 mill/uL (4.70-6.10); White Blood Cell (WBC) Count 8.7 thou/uL (4.8-10.8)
[2017-06-28 08:53] LABS: INR-International Normal Ratio 2.4; PTT 40.6 SEC (22.9-36.1); Prothrombin Time 26.7 SEC (12.0-14.7)
[2017-06-28 09:11] LABS: Anion Gap 8 mmol/L (10-20); BUN (Urea Nitrogen) 19 mg/dL (8.4-25.7); Calc. Creatinine Clearance 44 mL/min (70-130); Calcium 9.5 mg/dL (7.8-10.44); Carbon Dioxide 29 mmol/L (23-31); Chloride 109 mmol/L (98-107); Estimated GFR-MDRD 50; Glucose 101 mg/dL (83-110); Potassium 3.5 mmol/L (3.5-5.1); Sodium 142 mmol/L (136-145)
--- NOTE | 2017-06-28 13:21 | ECHO ---
TRANSESOPHAGEAL ECHOCARDIOGRAM: Date: 06/28/17 Mr. Lorenzana is a 77-year-old male with a history of CHF and ischemic cardiomyopathy with severely reduc ed LVEF. Prior biventricular ICD implantation, but with intermittently rapid rate with atrial fibrill ation causing suboptimal biventricular pacing. He is functional status and he is mainta ining a atrial fibrillation since November. He is here NEERU and cardioversion and AV manish ablation. PROCEDURE DETAILS: The patient received propofol per Anesthesia specialist. The standard transesophageal echocardiogram probe was passed into the esophagus without difficulty. Patient tolerated procedure well. No complica tion noted. RESULTS: Left atrium is enlarged, about 5 cm in horizontal diameter. Left atrial appendage is well visualized, contains no clots. Four pulmonary veins were seen. Spontaneous echo contrast seen in the left atrium throughout. Mitral valve with mitral valve ring in place. Only trace to mild mitral regurgitation no dheeraj only. The left ventricular systolic function is severely reduced. Segmental wall motion abnormali ties are visualized. Inferior wall seems to be more hypokinetic. LVEF estimated at about 25%. The rig ht-sided chambers are nondilated. Mild tricuspid regurgitation seen. Three pacemaker wires were visua lized in the right atrium at appropriate location. Aortic valve leaflet is thickened, but not stenoti c. Mild aortic regurgitation is noted. Pulmonary valve is not regurgitant. Pericardial space with tri vial effusion. Left ventricular wall thickness is mildly increased. The visualized portion of the asc ending and descending aorta without aneurysm, dissection, or significant atheroma. CONCLUSION: 1. No intracardiac clots, but spontaneous echo contrast visualized throughout the left atrium and th e appendage. 2. Prior mitral valve repair with trace to mild regurgitation only. No stenosis. 3. Mild aortic regurgitation. 4. Mild tricuspid regurgitation. 5. ICD wires in the right-sided chambers. 6. Severely reduced LVEF, about 25% estimated.
--- NOTE | 2017-06-28 16:17 | OP ---
INTERNAL CARDIOVERSION REPORT SUBJECTIVE: Mr. Lorenzana is a 77-year-old male with prior history of heart failure, ischemic cardiomyop athy who has had worsening systolic function and worsening dyspnea with continued atrial fibrillation , suboptimal biventricular pacing is noted. He underwent NEERU and cardioversion is planned. Long-ter m AV manish ablation, though is educated hence likely recurrence of atrial fibrillation. PROCEDURE: The patient received propofol per Anesthesia specialist. After adequate level of sedatio n was achieved, the ICD was interrogated and found to be in order and a synchronized 35 joule interna l shock, with the patient back to sinus rhythm. CONCLUSION: Successful cardioversion. PLAN: Proceed with AV node ablation and continue anticoagulation.
--- NOTE | 2017-06-28 16:25 | OP ---
DATE OF SERVICE: 06/28/2017 ELECTROPHYSIOLOGY STUDY AND ATRIOVENTRICULAR MAGALIS ABLATION REPORT REASON FOR PROCEDURE: Mr. Lorenzana is a 77-year-old male who has a biventricular ICD in place. He has severe reduced LV function and atrial fibrillation reported since November. He has limited knight jose, prior lung resection, poor pulmonary function is present. He underwent NEERU guided cardioversion prior to this procedure even though the ablation is performed to ascertain no RVR and left biventric ular pacing to take over even if atrial fibrillation recurs. PROCEDURE: The patient received deep sedation by Anesthesia specialist. After adequate level of sed ation achieved, the right femoral venous area prepped and draped, anesthetized using subcutaneous lid ocaine. Right femoral vein was cannulated using multipurpose needle under ultrasound guidance and an 8 Stateless short sheath was introduced. Through this, a [employer] SF ST catheter was advanced to the right atrium and right atrial map was performed CS, His bundle, AV magalis area. Following that a complete AV block was seen. At this point, dopamine was administered and the AV block persisted. ICD was interrogated and reprogrammed at 70 beats per minute. Baseline measurement sinus cycle length 680 milliseconds, TX 178, QT is 416, QRS is 153 milliseconds AH 120, HV 56 milliseconds. CONCLUSION: Successful AV magalis ablation. PLAN: Continue anticoagulation and a standard heart failure therapy. Follow up in the office.
== END ==
LOC: CCL 07:30
PROVIDERS: ATTEND Internal Medicine Cardiovascular Disease
PROC: 5A2204Z Restoration of Cardiac Rhythm, Single (ICD-10-PCS; principal; 2017-06-28)
PROC: 4A023FZ Measurement of Cardiac Rhythm, Percutaneous Approach (ICD-10-PCS; 2017-06-28)
PROC: 02583ZZ Destruction of Conduction Mechanism, Percutaneous Approach (ICD-10-PCS; 2017-06-28)
PROC: B24BZZ4 Ultrasonography of Heart with Aorta, Transesophageal (ICD-10-PCS; 2017-06-28)
DX: I48.1 Persistent atrial fibrillation (principal); I10 Essential (primary) hypertension; J44.9 Chronic obstructive pulmonary disease, unspecified; E78.5 Hyperlipidemia, unspecified; I25.10 Atherosclerotic heart disease of native coronary artery without angina pectoris; Z79.01 Long term (current) use of anticoagulants; Z79.899 Other long term (current) drug therapy; Z79.02 Long term (current) use of antithrombotics/antiplatelets; Z95.810 Presence of automatic (implantable) cardiac defibrillator
CPT/HCPCS: 76942; 80048; 85027; 85610; 85730; 92960; 93312; 93613; 93623; 93650; C1769; J1265; J1644; J2001; J2250; J2704; J3010

== ENCOUNTER 2017-09-25 10:54 | Outpatient (CLI) | payer MEDICARE ==
[~2017-09-25 10:54] MED LIST changes: -DOPamine 400 MG/D5W 250 ML 250 ML ONE; -Fentanyl 100 MCG/2 ML VIAL ONE; -Heparin 10,000 UNITS/1 ML VIAL ONE; +Iopamidol 370 76% 100 ML VIAL ONE; -Ketamine 50 MG/ML VIAL ONE; -Lidocaine 1% (PF) 30 ML VIAL ONE; -Midazolam HCl 2 mg/2 ml Vial ONE; -PROPOFOL 20 ML ONE; -PROPOFOL 200 MG/20 ML VIAL ONE; -Propofol 1,000 MG/100 ML VIAL IV ONE
== END 2017-09-25 10:55 | disposition home or self-care (01) ==
LOC: BICCT 10:54
PROVIDERS: ATTEND Internal Medicine
DX: C34.91 Malignant neoplasm of unspecified part of right bronchus or lung (principal); R91.8 Other nonspecific abnormal finding of lung field; E04.2 Nontoxic multinodular goiter; K76.89 Other specified diseases of liver; N28.1 Cyst of kidney, acquired; N28.89 Other specified disorders of kidney and ureter; Z98.890 Other specified postprocedural states
CPT/HCPCS: 71260; 82565

== ENCOUNTER 2017-10-10 09:06 | Day surgery (SDC) | payer MEDICARE, OTHER ==
[2017-10-09 10:32] VITALS: BMI 23.8
[2017-10-10 09:24] LABS: #Eosinphils 0.1 thou/uL (0.0-0.7); #Lymphocytes 1.1 thou/uL (1.20-3.40); #Neutrophils 8.3 thou/uL (1.40-6.50); %Basophils 0.3 % (0.0-1.0); %Eosinophils 0.5 % (0.0-10.0); %Lymphocytes 10.7 % (21.0-51.0); %Monocytes 9.7 % (0.0-10.0); %Neutrophils 78.8 % (42.0-75.0); Hemoglobin 14.6 g/dL (14.0-18.0); Mean Corpuscular HGB CONC 32.1 g/dL (32.0-36.0); Mean Corpuscular Hemoglobin 32.2 pg (27.0-31.0); Mean Platelet Volume 7.8 fL (7.4-10.4); Platelet Count 189 thou/uL (130-400); RBC Distribution Width 14.2 % (11.5-14.5); Red Blood Cell (RBC) Count 4.55 mill/uL (4.70-6.10); White Blood Cell (WBC) Count 10.5 thou/uL (4.8-10.8)
[2017-10-10 09:28] LABS: PTT 30.3 SEC (22.9-36.1); Prothrombin Time 13.4 SEC (12.0-14.7)
[2017-10-10 10:10] VITALS: BP 114/76; TEMP 98
--- NOTE | 2017-10-10 13:35 | RAD ---
CHEST TWO VIEWS WITH INSPIRATION AND EXPIRATION: 10/10/2017 HISTORY: Post biopsy of right upper lobe pulmonary nodule. COMPARISON: 02/23/2017 FINDINGS: There are post surgical changes seen in the right mid lung zone and at the right lung base. Patchy p arenchymal changes are seen in the right mid lung zone, likely related to a small amount of hemorrhag e surrounding the right upper lobe pulmonary nodule. No pneumothorax is present. The left lung appe ars clear. Post surgical changes related to CABG are noted. A triple-lead left subclavian AICD device remains i n place. There is slight blunting of the right lateral costophrenic angle. The cardiac silhouette i s magnified by projection but stable in size. IMPRESSION: 1. Pulmonary nodule, right mid lung zone, with adjacent increased density, suggesting hemorrhage. 2. No evidence of a pneumothorax. 3. Post surgical changes, right hemithorax. POS: [facility]
--- NOTE | 2017-10-10 13:55 | CT ---
CT GUIDED PERCUTANEOUS BIOPSY OF RIGHT UPPER LOBE PULMONARY NODULE: 10/10/2017 HISTORY: Patient with a history of right lung cancer, post surgery. The patient now has interval development of a right upper lobe pulmonary nodule. Biopsy was requested. TECHNIQUE: The procedure, including the risks and complications, was explained to the patient, and informed cons ent was obtained. The patient was placed on the CT scan table in the supine position. Limited noncontrasted CT scan was obtained through the thorax. The lung nodule was localized with a grid localizer in place. An area was marked and meticulously prepped and draped in the usual sterile fashion. The skin and subcutaneous tissues were infiltrated with buffered 1% Lidocaine for local anesthesia. A small skin incision was made. A 19 gauge guide needle was placed, followed by three axial noncontrasted CT images. The needle was advanced to the level of the lung nodule, with positioning confirmed by three axial noncontrasted CT images. A total of two 20 gauge core needle biopsy specimens was obtained, utilizing a coaxial techn ique. The initial ThinPrep images by pathology demonstrated malignant cells. Due to an area of hemorrhage, no additional biopsy was performed at this time. The patient began coughing and, as a result, no ad ditional biopsy specimens were obtained. The needle was removed, and hemostasis was achieved with direct pressure. The patient tolerated the procedure well and without immediate complications. Follow-up CT scan examination, after removal of the needle, demonstrated no pneumothorax or pleural effusion. Follow-up chest x-ray, after this procedure, also demonstrated no pneumothorax or significant pleural effusion. The patient was transported to the radiology nurses' holding area for further monitoring prior to dis charge. A follow-up chest x-ray will be performed in two hours, for further evaluation. IMPRESSION: 1. Technically successful CT guided percutaneous biopsy of a right upper lobe pulmonary nodule. 2. Cardiomegaly with triple lead automatic implantable cardioverter-defibrillator device in place. 3. Pleural and parenchymal changes in the right lung base, which were seen on the CT examination fro m 09/25/2017. POS: [facility]
--- NOTE | 2017-10-10 14:57 | RAD ---
INSPIRATORY AND EXPIRATORY CHEST RADIOGRAPH: Date: 10/10/17 HISTORY: Status post right lung biopsy. COMPARISON: 10/10/17 at 1132 hours. FINDINGS: Upright inspiratory and expiratory chest radiograph demonstrates stable increased opacification of th e right lung compatible with postprocedure hemorrhage. The overall aeration of the lung parenchyma is stable. There is no pneumothorax. Stable postsurgical changes. Stable prosthetic heart valve and AICD device. IMPRESSION: No evidence of pneumothorax on the upright inspiratory and expiratory chest radiographs. Stable post biopsy change in right lung. POS: [facility]
== END 2017-10-10 14:00 | disposition home or self-care (01) ==
LOC: CT 09:06
PROVIDERS: ATTEND Thoracic Surgery (Cardiothoracic Vascular Surgery)
PROC: 0BBC3ZX Excision of Right Upper Lung Lobe, Percutaneous Approach, Diagnostic (ICD-10-PCS; principal; 2017-10-10)
DX: C34.31 Malignant neoplasm of lower lobe, right bronchus or lung (principal); I11.0 Hypertensive heart disease with heart failure; I50.9 Heart failure, unspecified; J44.9 Chronic obstructive pulmonary disease, unspecified; I25.10 Atherosclerotic heart disease of native coronary artery without angina pectoris; E78.2 Mixed hyperlipidemia; I48.0 Paroxysmal atrial fibrillation; Z95.5 Presence of coronary angioplasty implant and graft; Z79.02 Long term (current) use of antithrombotics/antiplatelets; Z79.899 Other long term (current) drug therapy; Z87.891 Personal history of nicotine dependence
CPT/HCPCS: 32405; 36415; 71045; 77002; 85025; 85610; 85730; 88305; 88333; 88341; 88342

== ENCOUNTER 2018-06-25 08:34 | Day surgery (SDC) | payer MEDICARE ==
[2018-06-24 10:30] VITALS: BMI 22.8
[2018-06-25 08:56] LABS: #Eosinphils 0.2 thou/uL (0.0-0.7); #Lymphocytes 0.4 thou/uL (1.20-3.40); #Monocytes 1.1 thou/uL (0.11-0.59); #Neutrophils 9.5 thou/uL (1.40-6.50); %Basophils 0.2 % (0.0-1.0); %Eosinophils 1.9 % (0.0-10.0); %Lymphocytes 3.8 % (21.0-51.0); %Monocytes 9.6 % (0.0-10.0); %Neutrophils 84.5 % (42.0-75.0); Hemoglobin 10.3 g/dL (14.0-18.0); Mean Corpuscular HGB CONC 30.4 g/dL (32.0-36.0); Mean Corpuscular Hemoglobin 32.3 pg (27.0-31.0); Mean Platelet Volume 7.1 fL (7.4-10.4); Platelet Count 264 thou/uL (130-400); RBC Distribution Width 15.4 % (11.5-14.5); White Blood Cell (WBC) Count 11.2 thou/uL (4.8-10.8)
[2018-06-25 09:05] LABS: INR-International Normal Ratio 1.9; PTT 45.3 SEC (22.9-36.1); Prothrombin Time 21.4 SEC (12.0-14.7)
--- NOTE | 2018-06-25 11:33 | CT ---
CT-guided biopsy right lower chest pleural mass CT guided biopsy right lower lobe parenchymal mass. HISTORY: Lung cancer. Enlarging masses. Refractory to treatment. FINDINGS: After explaining the procedure and answering all questions, limited CT imaging of the chest was performed. [place] of masses at the posterior aspect of the right hemithorax was visualized, including a parenchymal mass abutting the posterior pleura and a mass at the level of the pleural space. Sterile technique, buffered local anesthesia, CT guidance, and the right posterior paraspinal approac h were used to carefully advance the tip of a 17-gauge trocar needle into the low-density mass at the level of the pleura. A total of 3 18-gauge core biopsy specimens were obtained and submitted to Dr. More from pathology for confirmation of specimen adequacy. The needle was then carefully advanced into the parenchymal right lower lobe mass. Position confirmed with CT. An additional 3 18-gauge core biopsy specimens were obtained and submitted to Dr. More from pathology. Malignant cells were confirmed. The needle was removed. Postprocedure imaging shows n o evidence of complication. Patient tolerated the procedure well and was returned to the holding area in good condition for further monitoring. IMPRESSION: Technically successful CT-guided biopsy right lower lobe parenchymal lung mass and pleura l mass. Pathology is pending.
== END 2018-06-25 11:35 | disposition home or self-care (01) ==
LOC: CT 08:34
PROVIDERS: ATTEND Radiology Body Imaging
PROC: 0BBF3ZX Excision of Right Lower Lung Lobe, Percutaneous Approach, Diagnostic (ICD-10-PCS; principal; 2018-06-25)
DX: C34.31 Malignant neoplasm of lower lobe, right bronchus or lung (principal); I48.91 Unspecified atrial fibrillation; I42.9 Cardiomyopathy, unspecified; I25.10 Atherosclerotic heart disease of native coronary artery without angina pectoris; I12.9 Hypertensive chronic kidney disease with stage 1 through stage 4 chronic kidney disease, or unspecified chronic kidney disease; N18.9 Chronic kidney disease, unspecified; E78.5 Hyperlipidemia, unspecified; J44.9 Chronic obstructive pulmonary disease, unspecified; Z79.01 Long term (current) use of anticoagulants; Z79.02 Long term (current) use of antithrombotics/antiplatelets; Z79.899 Other long term (current) drug therapy; Z95.810 Presence of automatic (implantable) cardiac defibrillator
CPT/HCPCS: 32405; 36415; 77012; 85025; 85610; 85730; 88305; 88333; 88334; 88341; 88342